=== PATIENT | female | born 1950 | race Caucasian/White ===

== ENCOUNTER 2020-03-25 13:57 | Outpatient (CLI) | payer MEDICARE, OTHER, SELFPAY ==
--- NOTE | 2020-03-25 14:01 | ECG_ITS ---
Measurements Intervals [place] Rate: 95 P: 43 CO: 157 QRS: 45 QRSD: 90 T: 41 QT: 344 QTc: 434 Interpretive Statements SINUS RHYTHM MINIMAL Q WAVES- INFERIOR LEADS BASELINE ARTIFACT- I, II, III, AVR, AVL, AVF, V6 BORDERLINE ECG Electronically Signed On 03-25-2020 16:44:35 SECURITY AND COMPLIANCE ANALYST by Jose G Salazar D.O.
[2020-03-25 14:34] LABS: Anion Gap 7 mmol/L (8-16); Blood Urea Nitrogen 19 mg/dL (7-17); Calcium 9.2 mg/dL (8.4-10.2); Carbon Dioxide 30 mmol/L (22-30); Chloride 100 mmol/L (98-107); Estimated Glomerular Filt Rate 44; Glucose 100 mg/dL (65-105); Potassium 3.6 mmol/L (3.4-5.0); Sodium 137 mmol/L (137-145)
== END 2020-03-25 13:58 | disposition home or self-care (01) ==
LOC: ANHSURGERY 14:01
PROVIDERS: Anesthesiology; PCP Physician Assistant; Visit Provider Podiatrist Foot & Ankle Surgery
DX: Z01.812 Encounter for preprocedural laboratory examination (principal); I10 Essential (primary) hypertension; Z79.899 Other long term (current) drug therapy
CPT/HCPCS: 36415; 80048; 93005

== ENCOUNTER 2020-03-29 00:05 | Outpatient (CLI) | payer MEDICARE, OTHER, SELFPAY ==
[2020-03-29 19:18] LABS: SARS-CoV-2 RNA PCR Negative
== END 2020-03-29 00:06 | disposition home or self-care (01) ==
LOC: ANHCOVIDDT 00:05
PROVIDERS: PCP Physician Assistant; Visit Provider Podiatrist Foot & Ankle Surgery
DX: Z01.812 Encounter for preprocedural laboratory examination (principal); Z20.822 Contact with and (suspected) exposure to COVID-19
CPT/HCPCS: C9803; U0003; U0005

== ENCOUNTER 2020-04-01 00:48 | Day surgery (SDC) | payer MEDICARE, OTHER, SELFPAY ==
[2020-03-24 14:09] VITALS: BMI 29.0
--- NOTE | 2020-03-31 16:19 | WPDANESEPPF ---
Anes - Initial Pre Proc Eval Procedure: Operation Date: 04/01/20 07:30 Proposed Procedures p Fusion First Metatarsalphalangeal Joint Right Foot - Yosi Muñoz JR, MD s Hammer Toe Repair Second Digit Right Foot, Tailor's Bunionectomy Right Foot - Yosi Muñoz JR, MD Date/Time: 03/31/20 16:19 Surgeon: Yosi Muñoz JR, MD Pre Op Diagnosis: Arthritic Bunion Rt foot, Hammer Toe 2nd right, Patient Data Age: 70 Gender: F Height: 1.7 m Weight: 84 kg Allergies Allergy/AdvReac Type Severity Reaction Status Date / Time No Known Allergies Allergy Verified 03/24/20 14:09 Home Medications Medication Instructions Recorded Confirmed Type atorvastatin 40 mg tablet 40 mg PO HS 04/08/19 03/24/20 History calcium 650 mg-vitamin D3 12.5 1 tablet PO DAILY 04/08/19 03/24/20 History mcg-vitamin K 40 mcg chewable tablet cholecalciferol (vitamin D3) 50 2,000 unit PO DAILY 04/08/19 03/24/20 History mcg (2,000 unit) capsule coenzyme Q10 100 mg capsule 100 mg PO DAILY 04/08/19 03/24/20 History fluticasone propionate 50 2 spray NASAL DAILY PRN 04/08/19 03/24/20 History mcg/actuation nasal spray,suspension hydrochlorothiazide 25 mg tablet 25 mg PO DAILY 04/08/19 03/24/20 History lisinopril 30 mg tablet 30 mg PO HS 04/08/19 03/24/20 History multivitamin with minerals 1 tablet PO DAILY 04/08/19 03/24/20 History sertraline 50 mg tablet 50 mg PO HS 04/08/19 03/24/20 History famotidine [Pepcid AC] 20 mg PO DAILY PRN 03/24/20 03/24/20 History levothyroxine [Synthroid] 88 mcg PO QAM 03/24/20 03/24/20 History ECG: Date of Service: 03/25/20 Procedure(s): CA 12 lead EKG Accession Number(s): [id number] cc: ~ Measurements Intervals [place] Rate: 95 P: 43 [place]: 157 QRS: 45 QRSD: 90 T: 41 QT: 344 QTc: 434 Interpretive Statements SINUS RHYTHM MINIMAL Q WAVES- INFERIOR LEADS BASELINE ARTIFACT- I, II, III, AVR, AVL, AVF, V6 BORDERLINE ECG Electronically Signed On 03-25-2020 16:44:35 INFORMATION RECEPTIONIST by Jose G Salazar D.O. Dictated By: Jose G Salazar DO 03/25/20 1644 Patient hx anesthesia problems: none Family hx anesthesia problems: none PMFSH Past Medical History Medical History (Updated 03/31/20 @ 16:21 by Jaspal Plunkett MD) Adrenal adenoma Anxiety Depression HTN (hypertension) Hypercholesterolemia Hypothyroidism Osteoarthritis Osteoporosis Overweight (BMI 25.0-29.9) Family History Family History Mother Patient's mother is Family history of lung cancer Sibling Family history of cardiomyopathy Father Family history of lymphoma Social History Social History Smoking packs per day: 1 Smoking cigarettes per day: 20.0 Years smoked: 17 Smoking pack-years: 17.00 Smoking status: Never smoker Second hand tobacco smoke exposure: No Smoking end date: 08/25/84 Alcohol intake: current Drinks per week: 3 Alcohol use details: 3 GLASSES/DAY Substance use: never Living arrangements: with family Additional living arrangements comments: Spiritual care concerns: No Anes - Eval Final PreProcedure Day of Procedure 03/31/20 16:19 Patient weight: overweight Heart: regular rate and rhythm Lungs: clear to auscultation and normal air movement Airway: Mallampati scale class II Neurological: alert and oriented Last oral intake: >/= 8 hours ASA classification: II Emergent: no Anesthetic plan: proceed Anesthesia type and monitoring: general GIVS and LMA Informed Consent: The patient's anesthetic plan and its attendant risks and benefits were discu
--- NOTE | 2020-03-31 16:42 | WPDANESPNB ---
Anes - Peripheral Nerve Block Date/Time: 03/31/20 16:42 I have discussed with the patient/family/POA the placement of a peripheral nerve block for post-operative pain management, including associated risks, benefits, complications, and side effects. Alternative methods of post-operative analgesia were detailed. Questions were solicited and answers provided to the satisfaction of the patient/family/POA. Time-Out: A pre-procedural Time-Out was completed immediately before starting the procedure and confirmed: Patient Identification, Site, Procedure, Patient Position and the Availability of Requisite Equipment. Clinical Indications: Acute post-operative pain management requested by the operative surgeon. Nerve Block Insertion Note Anes-nerve block: posterior fossa sciatic (20cc) Patient position: supine Skin prep: chlorhexidine Needle: 22 gauge, stimulating, insulated echogenic needle. Needle length: 80 mm Technique: ultrasound (in plane) Injectate: bupivacaine 0.5% with epi 5 mcg/ml (20cc) Observations: tolerated well Complications: none Procedure start time:: 715 Procedure end time::
--- NOTE | ~2020-04-01 | XR_ITS ---
EXAMINATION: XR surgery orthopedic EXAM DATE: 04/01/2020 09:40 INDICATION: Right foot hammertoe repair, 1st MTP bunion. Bunionectomy 2nd toe. TECHNIQUE: Fluoroscopy used during XR surgery orthopedic performed by Dr. Yosi Muñoz JR MD. The DAP for this procedure was 1.2 cGycm2. FINDINGS: Surgical changes at the right 1st metatarsophalangeal joint with a plate bridging the join t, supporting screws in position. There is surgical and pin extending through the length of the 2nd digit bridging the joints to the 2n d metatarsal head. Central portion of this has a screw fixation device overlying the 2nd proximal int erphalangeal joint, arthrodesis. There is also a probable 5th metatarsal neck osteotomy with screw fixation. Correlate with procedure note. IMPRESSION: Fluoroscopy used during right foot orthopedic surgery. Reviewed, dictated and finalized at location B. [facility] [employer]UCK DRIVER
[2020-04-01 06:10] VITALS: BP 195/78; PULSE 74; RESP 20; TEMP 36.1; O2SAT 99
[2020-04-01] MEDS: LACTATED RINGERS 1,000 ML 30 ML IV CONT ×2 (06:42→09:48)
--- NOTE | 2020-04-01 07:14 | WPDHPUPDATE1 ---
History and Physical Update Update Date/Time: 04/01/20 07:14 History and Physical has been reviewed, including an updated exam of the patient. There are NO changes in the patient's condition. Risks, benefits, and alternatives have been discussed and questions answered. Patient agrees to proceed with procedure.
[2020-04-01] MEDS: ceFAZolin 2 GM/D5W 50 ML 2 GM/50 ML BAG IVPB (07:27)
--- NOTE | 2020-04-01 08:44 | SUR.OPER ---
dr. Mobley INFORMED OF 60 MINUTE TOURNIQUET TIME
[2020-04-01 09:48] VITALS: BP 116/62; PULSE 86; RESP 10; TEMP 36.6; O2SAT 97
--- NOTE | 2020-04-01 09:57 | PM.PROC ---
Procedure Note - Detailed Date of procedure: 04/01/20 Pre-op diagnosis: Arthritic Bunion Rt foot, Hammer Toe 2nd right, 1. Arthritic bunion right foot 2. Hammertoe deformity 2nd digit right foot 3. Tailor's bunion right foot Post-op diagnosis: same Procedure performed: 1. Fusion of the first metatarsal phalangeal joint right foot 2. Hammertoe correction right foot 3. Tailor's bunionectomy right foot Implants: 1. Cause.it Cross Check plate with 3 (2.7mm) and 1 (3.5mm) Locking screws 2. [employer] Hammertoe Implant Medium 3. [place] 2.0mm partially threaded cannulated screw Anesthesia: GLMA and regional (Popliteal fossa block) Surgeon: Yosi Muñoz JR, DPM Estimated blood loss (mL): 1 Drains: No Packing: No Pathology: none sent Complications: No immediate complications Condition: stable Disposition: same day Findings: PROCEDURE IN DETAIL: Under mild sedation, the patient was brought into the operating room, placed on the operating table in supine position. A pneumatic ankle tourniquet was placed about the patient's right ankle. Following general LMA, and popliteal fossa block the foot and ankle. The foot was then scrubbed, prepped, and draped in the usual aseptic manner. An Esmarch bandage was then used to exsanguinate the patient's foot and the pneumatic ankle tourniquet was then inflated. Surgery began in the following manner: Attention was directed to the dorsal aspect of the 1st metatarsophalangeal joint where there was a large osteophyte noted along the dorsomedial aspect of the joint along with lateral deviation of the hallux and a prominent 1st metatarsal head medially. The incision was made starting along the central shaft of the 1st metatarsal and extending just proximal to the interphalangeal joint of the hallux. The incision was continued deep down through the subcutaneous tissues using sharp and blunt dissection. All bleeders were cauterized as necessary. At this point, the dissection was continued down to the level of the periosteum and capsular structures overlying the 1st metatarsophalangeal joint. A full length periosteum and capsular incision was made just medial to the extensor hallucis longus tendon. The periosteum and capsular structures were freed from the base of the proximal phalanx as well as the distal 1st metatarsal. At this point, the 1st metatarsophalangeal joint was identified. There was almost complete loss of articular cartilage to the head of the 1st metatarsal as well as the base of the proximal phalanx. There was significant broadening and hypertrophy of the 1st metatarsophalangeal joint. Utilizing a sagittal bone saw, the hypertrophied 1st metatarsal was resected dorsally, medially, and laterally. A power bur was used to make sure that there were no rough edges and also to further debride the hypertrophic 1st metatarsal. Next, a rongeur was used to resect all hypertrophic base of the proximal phalanx. At this point, the reamer system for the Cause.it CrossCHECK system was used to denude the degenerative cartilage from the head of the 1st metatarsal as well as the base of the proximal phalanx. The cartilage and subchondral bone were fully debrided utilizing the reamer system until healthy bleeding bone was noted. Next, a 2-0 drill bit was used to further fenestrate the head of the 1st metatarsal as well as the base of the proximal phalanx in order to allow fusion across the 1st metatarsophalangeal joint. Next, a 0.045 inch K-wire was driven from the medial aspect of the base of the proximal phalanx into the head of the 1st metatarsal in order to serve as temporary fixation. Next, a CrossCHECK plate was placed atop the 1st metatarsophalangeal joint held in position with [place] wires. Utilizing standard principles and techniques, the 2 distal drill holes were drilled and two Cause.it 2.7 mm fully-threaded locking screws were driven from dorsal to plantar holding the distal
[2020-04-01 10:00] VITALS: BP 117/61; PULSE 79; RESP 19; O2SAT 98
[2020-04-01 10:15] VITALS: BP 108/56; PULSE 77; RESP 12; O2SAT 95
[2020-04-01 10:25] VITALS: BP 108/56; PULSE 74; RESP 12; O2SAT 95
[2020-04-01 10:50] VITALS: BP 143/66; PULSE 79; RESP 16
== END 2020-04-01 11:35 | disposition home or self-care (01) ==
PROVIDERS: PCP Physician Assistant; Visit Provider Podiatrist Foot & Ankle Surgery
PROC: (CPT 28750; principal; 2020-04-01 07:30)
PROC: (CPT 28285; 2020-04-01 07:30)
DX: M21.611 Bunion of right foot (principal); M20.41 Other hammer toe(s) (acquired), right foot; M21.621 Bunionette of right foot; M19.071 Primary osteoarthritis, right ankle and foot; G89.18 Other acute postprocedural pain; I10 Essential (primary) hypertension; E78.00 Pure hypercholesterolemia, unspecified; F41.8 Other specified anxiety disorders; E03.9 Hypothyroidism, unspecified; M81.0 Age-related osteoporosis without current pathological fracture; F32.3 Major depressive disorder, single episode, severe with psychotic features; F17.210 Nicotine dependence, cigarettes, uncomplicated
CPT/HCPCS: 64445; 28285; 28110; 28750; C1713; C1776; J0690; J1100; J2250; J2405; J2704; J3010; J7120

== ENCOUNTER → 2020-05-31 04:03 | Outpatient (CLI) | payer MEDICARE, OTHER, SELFPAY ==
[2020-05-31 19:03] LABS: SARS-CoV-2 RNA PCR Negative
== END ==
PROVIDERS: PCP Physician Assistant; Visit Provider Internal Medicine Gastroenterology
DX: Z01.812 Encounter for preprocedural laboratory examination (principal); Z20.822 Contact with and (suspected) exposure to COVID-19
CPT/HCPCS: C9803; U0003; U0005

== ENCOUNTER 2020-06-03 01:49 | Day surgery (SDC) | payer MEDICARE, OTHER, SELFPAY ==
[2020-05-24 09:48] VITALS: BMI 27.2
[2020-06-03 07:46] VITALS: BP 120/71; PULSE 102; RESP 16; TEMP 35.9; O2SAT 97
[2020-06-03] MEDS: LACTATED RINGERS 1,000 ML 150 ML IV CONT (07:56)
--- NOTE | 2020-06-03 08:28 | PM.HPGS ---
History of Present Illness History of Present Illness Consent: Risks, benefits, and alternatives have been discussed and questions answered. Patient agrees to proceed with procedure. Chief complaint: HX of Colon Poplyps Narrative: Shira Torres is a 70 year old female here for colon cancer screening. She had a polyp removed about 5 years ago Review of Systems Review of Systems: All systems reviewed & are unremarkable except as noted in HPI and below PMFSH Past Medical History Medical History Adrenal adenoma Anxiety Depression HTN (hypertension) Hypercholesterolemia Hypothyroidism Osteoarthritis Osteoporosis Overweight (BMI 25.0-29.9) Family History Family History Mother Patient's mother is Family history of lung cancer Sibling Family history of cardiomyopathy Father Family history of lymphoma Social History Social History Smoking packs per day: 1 Smoking cigarettes per day: 20.0 Years smoked: 17 Smoking pack-years: 17.00 Smoking status: Former smoker Tobacco type: cigarettes Second hand tobacco smoke exposure: No Smoking end date: 08/25/84 Alcohol intake: current Drinks per week: 3 Substance use: never Substance use type: does not use Living arrangements: with family Additional living arrangements comments: Spiritual care concerns: No Meds Home Medications and Allergies Home Medications Medication Instructions Recorded Confirmed Type atorvastatin 40 mg tablet 40 mg PO HS 04/08/19 05/24/20 History calcium 650 mg-vitamin D3 12.5 1 tablet PO DAILY 04/08/19 05/24/20 History mcg-vitamin K 40 mcg chewable tablet cholecalciferol (vitamin D3) 50 2,000 unit PO DAILY 04/08/19 05/24/20 History mcg (2,000 unit) capsule fluticasone propionate 50 2 spray NASAL DAILY PRN 04/08/19 05/24/20 History mcg/actuation nasal spray,suspension hydrochlorothiazide 25 mg tablet 25 mg PO DAILY 04/08/19 05/24/20 History lisinopril 30 mg tablet 30 mg PO HS 04/08/19 05/24/20 History sertraline 50 mg tablet 50 mg PO HS 04/08/19 05/24/20 History famotidine [Pepcid AC] 20 mg PO DAILY PRN 03/24/20 05/24/20 History levothyroxine [Synthroid] 88 mcg PO QAM 03/24/20 05/24/20 History ibuprofen 200 mg PO Q6H PRN 05/24/20 05/24/20 History Allergies Allergy/AdvReac Type Severity Reaction Status Date / Time No Known Allergies Allergy Verified 05/24/20 09:49 Vital Signs Vital Signs - 24 hr 06/03/20 07:46 Temperature 35.9 C L Pulse Rate 102 H Respiratory Rate 16 Blood Pressure 120/71 Pulse Oximetry 97 Exam Resp: Auscultation: clear to auscultation bilaterally Cardio: Rate: regular rate Rhythm: regular rhythm GI: GI Palp: Yes Soft to palpation and No Tenderness to palpation present (GI) Assessment and Plan Assessment and plan (1) Colon cancer screening: Code(s): Z12.11 - Encounter for screening for malignant neoplasm of colon Status: Acute Assessment and Plan: Colonoscopy with possible biopsy or polypectomy or cautery or injection of substances.
[2020-06-03 09:15] VITALS: BP 104/56; PULSE 65; RESP 24; O2SAT 97
[2020-06-03 09:25] VITALS: BP 104/59; PULSE 60; RESP 14; O2SAT 97
[2020-06-03 09:35] VITALS: BP 119/69; PULSE 62; RESP 15; O2SAT 98
== END 2020-06-03 09:47 | disposition home or self-care (01) ==
PROVIDERS: PCP Physician Assistant; Visit Provider Internal Medicine Gastroenterology
PROC: 0DJD8ZZ Inspection of Lower Intestinal Tract, Via Natural or Artificial Opening Endoscopic (ICD-10-PCS; CPT 45378; principal; 2020-06-03 09:00)
DX: Z12.11 Encounter for screening for malignant neoplasm of colon (principal); K57.30 Diverticulosis of large intestine without perforation or abscess without bleeding; K64.8 Other hemorrhoids; Z86.010 Personal history of colon polyps; F41.8 Other specified anxiety disorders; E78.00 Pure hypercholesterolemia, unspecified; E03.9 Hypothyroidism, unspecified; M19.90 Unspecified osteoarthritis, unspecified site; M81.0 Age-related osteoporosis without current pathological fracture; Z87.891 Personal history of nicotine dependence; I10 Essential (primary) hypertension
CPT/HCPCS: G0105; J2704; J7120

== ENCOUNTER → 2021-02-24 00:23 | Outpatient (CLI) | payer MEDICARE, OTHER, SELFPAY ==
[2021-02-24 20:43] LABS: SARS-CoV-2 RNA PCR Negative
== END ==
PROVIDERS: PCP Physician Assistant; Visit Provider Physician Assistant
DX: R09.89 Other specified symptoms and signs involving the circulatory and respiratory systems (principal); Z20.822 Contact with and (suspected) exposure to COVID-19
CPT/HCPCS: C9803; U0003; U0005

== ENCOUNTER 2021-04-25 10:24 | Outpatient (CLI) | payer MEDICARE, OTHER, SELFPAY ==
[2021-04-25 11:27] LABS: Mean Corpuscular HGB Conc 33.3 g/dl (32-36); Mean Corpuscular Hemoglobin 30.6 pg (26-34); Mean Corpuscular Volume 91.8 fl (80-100); Mean Platelet Volume 9.7 fl (7.4-10.4); Platelet Count Result 251 k/mm3 (150-375); Red Blood Count 4.25 M/mm3 (4.2-5.4); Red Cell Distribution Width 14.1 % (11.5-14.5); White Blood Count 4.9 K/mm3 (4.5-10.0)
[2021-04-25 11:32] LABS: Cholesterol 217 mg/dL (0-200); HDL Direct 64 mg/dL; Triglycerides 137 mg/dL (<150)
[2021-04-25 11:43] LABS: LDL Cholesterol Direct 113 mg/dL
[2021-04-25 12:38] LABS: Folic Acid 11.3 ng/mL (2.76->20)
== END 2021-04-25 10:25 | disposition home or self-care (01) ==
PROVIDERS: PCP Physician Assistant; Visit Provider Physician Assistant
DX: R53.83 Other fatigue (principal); M81.0 Age-related osteoporosis without current pathological fracture; E03.9 Hypothyroidism, unspecified; E78.00 Pure hypercholesterolemia, unspecified
CPT/HCPCS: 36415; 80061; 82607; 82746; 85027

== ENCOUNTER 2021-05-30 11:41 | Outpatient (CLI) | payer MEDICARE, OTHER, SELFPAY ==
[2021-05-30 12:31] LABS: Anion Gap 7 mmol/L (8-16); Blood Urea Nitrogen 14 mg/dL (7-17); Calcium 9.3 mg/dL (8.4-10.2); Carbon Dioxide 30 mmol/L (22-30); Chloride 100 mmol/L (98-107); Estimated Glomerular Filt Rate > 60; Glucose 101 mg/dL (65-110); Potassium 4.1 mmol/L (3.4-5.0); Sodium 137 mmol/L (137-145)
[2021-05-30 12:52] LABS: Free T4 Free Thyroxine 1.37 ng/mL (0.78-2.19)
== END 2021-05-30 11:42 | disposition home or self-care (01) ==
PROVIDERS: PCP Physician Assistant
DX: E03.9 Hypothyroidism, unspecified (principal); M81.0 Age-related osteoporosis without current pathological fracture
CPT/HCPCS: 36415; 80048; 84439; 84443

== ENCOUNTER 2022-03-29 10:38 | Outpatient (CLI) | payer MEDICARE, OTHER, SELFPAY ==
--- NOTE | 2022-03-29 10:41 | ECG_ITS ---
Measurements Intervals [place] Rate: 70 P: 48 [place]: 156 QRS: 41 QRSD: 94 T: 36 QT: 382 QTc: 415 Interpretive Statements SINUS RHYTHM NORMAL ECG COMPARED TO ECG 03/25/2020 14:39:24 NO SIGNIFICANT CHANGES Electronically Signed On 03-29-2022 14:00:20 BOWLING BALL FINISHER by Jose E Archuleta M.D.
[2022-03-29 12:15] LABS: Anion Gap 5 mmol/L (8-16); Blood Urea Nitrogen 10 mg/dL (7-17); Calcium 8.7 mg/dL (8.4-10.2); Carbon Dioxide 31 mmol/L (22-30); Chloride 100 mmol/L (98-107); Estimated Glomerular Filt Rate > 60; Glucose 83 mg/dL (65-110); Potassium 3.6 mmol/L (3.4-5.0); Sodium 136 mmol/L (137-145)
== END 2022-03-29 10:39 | disposition home or self-care (01) ==
PROVIDERS: Anesthesiology; PCP Physician Assistant; Visit Provider Surgery
DX: Z01.812 Encounter for preprocedural laboratory examination (principal); Z01.810 Encounter for preprocedural cardiovascular examination; Z79.899 Other long term (current) drug therapy; I10 Essential (primary) hypertension
CPT/HCPCS: 36415; 80048; 93005

== ENCOUNTER 2022-04-02 00:21 | Day surgery (SDC) | payer MEDICARE, OTHER, SELFPAY ==
[2022-03-28 09:41] VITALS: BMI 29.7
--- NOTE | 2022-03-28 09:51 | PC.NURSE ---
PRE-OP INSTRUCTIONS, PLEASE READ CAREFULLY Report to the Outpatient Waiting Room, entrance under the green pavilion located off [facility], at time _1130_ on date _04/02/22_. Planned Procedure Time: _1:30 PM__. Time changes happen often and if your time is changed the preop area will call you the afternoon before. - You and your visitor will be asked to self-screen and do not enter if you have any COVID symptoms. - Only one visitor is requested with a max of two and NO children visitors are allowed at this time. - The patient visitor may be requested to leave or wait in car when not with patient due to distancing restrictions. - A mask is optional within the hospital at this time. Patients may have clear liquids (water, carbonated beverages, clear teas, apple juice) until 3 hours prior to surgery (1030 AM) with a maximum of 20 ounces. - No food from midnight until time of surgery Take the following medications with a SIP of water the morning of surgery: _LEVOTHYROXINE_ DO NOT STOP ANY OF YOUR OTHER PRESCRIPTION MEDICATIONS PRIOR TO SURGERY ?EXCEPT THE FOLLOWING Medications to discontinue per DR. HIDALGO - _IBUPROFEN_ Date to take last dose Please no make-up, nail american, hairspray, perfume, deodorant, or body powder the day of surgery. No jewelry (including any body piercings) or valuables the day of surgery, leave them at home. Please take a shower or bath the night before, or the morning of, surgery with an antibacterial soap. Wear comfortable, loose fitting clothing. - Jewelry must be removed prior to entering the operating room. Rings and piercings that are not removed may be cut off. - The hospital will not accept responsibility for valuables. - Please leave all valuables, including medications, at home the day of surgery. If you are going home after surgery, a licensed driver examiner must drive you home. - NO public transportation without another adult if you receive anesthesia. - We recommend that an adult stay with you for 24 hours following discharge. - We also recommend that you do not drive, make important decision, drink alcoholic beverages, or take any drugs that were not prescribed by your health care provider for at least 24 hours after your discharge time. Follow any additional instructions given to you from your surgeon. If you or anyone in your household have experienced Covid symptoms in the past week, please notify your surgeon or the nurse liaison at the phone number below for possible testing. Telephone instructions given to _PATIENT_and asked if any additional questions and then verbalized understanding. Patient advised to call surgeon office or pre surgery nurse liaison [phone] if any additional questions.
[2022-04-02] VITALS (9 sets, daily range): BP systolic 149–189; BP diastolic 70–90; PULSE 66–86; RESP 10–16; TEMP 36.1–36.7; O2SAT 95–100
[2022-04-02] MEDS: ACETAMINOPHEN 500 MG TABLET 1000 MG PO (08:58)
[2022-04-02] MEDS: KETOROLAC 15 MG/ML VIAL (*BKC) IV PUSH (08:59)
--- NOTE | 2022-04-02 08:59 | WPDANESEPPF ---
Anes - Initial Pre Proc Eval Procedure: Operation Date: 04/02/22 10:30 Proposed Procedures p Anorectal Examination Under Anesthesia, Excisional Hemorrhoidectomy - Romain Babin MD Date/Time: 04/02/22 08:59 Surgeon: Romain Babin MD Pre Op Diagnosis: prolapsing internal & bleeding hemorrhoids Patient Data Age: 72 Gender: F Height: 1.7 m Weight: 86.3 kg Allergies Allergy/AdvReac Type Severity Reaction Status Date / Time No Known Allergies Allergy Verified 03/28/22 09:36 Home Medications Medication Instructions Recorded Confirmed Type fluticasone propionate 50 2 spray intranasal DAILY PRN 01/25/21 03/28/22 Rx mcg/actuation nasal Congestion #16 grams spray,suspension (Flonase Allergy Relief) ibuprofen 200 mg tablet 200 mg PO Q6H PRN Pain #120 tabs 01/25/21 03/28/22 Rx atorvastatin 40 mg tablet 40 mg PO HS #90 tabs 01/22/22 03/28/22 Rx cholecalciferol (vitamin D3) 50 2,000 unit PO DAILY #90 caps 01/22/22 03/28/22 Rx mcg (2,000 unit) capsule hydrochlorothiazide 25 mg tablet 25 mg PO DAILY #90 tabs 01/22/22 03/28/22 Rx levothyroxine 88 mcg tablet 88 mcg PO QAM #90 tabs 01/22/22 03/28/22 Rx (Synthroid) lisinopril 30 mg tablet 30 mg PO HS #90 tabs 01/22/22 03/28/22 Rx sertraline 50 mg tablet 50 mg PO HS #90 tabs 01/22/22 03/28/22 Rx coenzyme Q10 10 mg capsule (Co 10 mg PO DAILY 03/27/22 03/28/22 History Q-10) cyanocobalamin (vitamin B-12) 1,000 mcg PO DAILY 03/27/22 03/28/22 History 1,000 mcg capsule calcium carb,cit ER 600 mg-vit D3 2 tablet PO DAILY 03/28/22 03/28/22 History 12.5 mcg (500 unit) tablet,ext.rel (Citracal-D3 Slow Release) docusate sodium 100 mg capsule 100 mg PO BID Constipation #60 caps 03/28/22 03/28/22 Rx (Colace) lidocaine 5 % topical ointment 1 applic topical BID PRN pain #50 03/28/22 03/28/22 Rx grams oxycodone 5 mg tablet 5 mg PO Q4H PRN pain (scale score 03/28/22 03/28/22 Rx 7-10) #30 tabs Patient hx anesthesia problems: none Family hx anesthesia problems: none Results Review: All pre-operative results and documents have been reviewed as part of the pre-operative evaluation. [facility] Past Medical History Medical History Adrenal adenoma Anxiety Depression HTN (hypertension) Hx of cyst of breast Hypercholesterolemia Hypothyroidism Osteoarthritis Osteoporosis Overweight (BMI 25.0-29.9) Surgical History Surgical History S/P bunionectomy S/P tubal ligation Family History Family History Mother Patient's mother is Family history of lung cancer Sibling Family history of cardiomyopathy Father Family history of lymphoma Unknown Diabetes mellitus Heart disease Hypertension Cancer Social History Social History Smoking packs per day: 1 Smoking cigarettes per day: 20.0 Years smoked: 17 Smoking pack-years: 17.00 Smoking status: Former smoker Tobacco type: cigarettes Second hand tobacco smoke exposure: No Smoking end date: 08/25/84 Alcohol intake: current Drinks per week: 21 Alcohol use details: 3 GLASSES WINE/DAY Substance use: never Substance use type: does not use Lack of Transportation: No Lack of Food: Never True Current Housing: I Have Housing Concerned About Future Housing: No Difficulty Paying Gas/Electric Bills: No Difficulty Paying for Meds: No Currently Unemployed: No Education: Trade/Vocational Certificate Difficulty w/ Childcare or Family Care: No Living arrangements: with family Additional living arrangements comments: Spiritual care concerns: No Anes - Eval Final PreProcedure Day of Procedure 04/02/22 08:59 Patient weight: overweight Heart: regular rate and rhythm Lungs: clear to auscultation Airway: Mall
[2022-04-02] MEDS: LACTATED RINGERS 1,000 ML 30 ML IV CONT ×2 (09:00→12:05)
--- NOTE | 2022-04-02 10:05 | WPDHPUPDATE1 ---
History and Physical Update Update Date/Time: 04/02/22 10:05 History and Physical has been reviewed, including an updated exam of the patient. There are NO changes in the patient's condition. Risks, benefits, and alternatives have been discussed and questions answered. Patient agrees to proceed with procedure.
[2022-04-02] MEDS: ceFAZolin 2 GM/D5W 50 ML 2 GM/50 ML BAG IVPB (10:21)
[2022-04-02] MEDS: oxyCODONE HCL (*CRX) 5 MG TAB IR PO (13:37)
--- NOTE | 2022-04-02 19:27 | W.PM.PROC2 ---
Procedure Note - Detailed Date of Procedure 04/02/22 Pre-op Diagnosis prolapsing internal & bleeding hemorrhoids Post-op Diagnosis Same Procedure Performed Excisional hemorrhoidectomy x4. Surgeon Romain Babin MD Laboratory Mechanic Helper Cheri Can LOGISTIC MANAGER Anesthesia General Indications Patient presented with longstanding prolapsing internal hemorrhoids with associated pain and bleeding. She wished to have surgical management of the hemorrhoids. Findings Circumferential grade 3 prolapsing internal hemorrhoids. Hemorrhoids were located at the 12:00 o'clock, 3:00 o'clock, 6 o'clock, and 9 o'clock position with the patient prone. No anal canal lesions or masses were noted. Description of Procedure After informed consent was obtained the patient was brought to the operating room where she was placed under general endotracheal anesthesia on the gurney and then turned onto the prone darshan-knife position on the operating room table. Great care was taken to make sure all the pressure points well padded. The buttocks were then taped apart to expose the perianal region. She was then prepped and draped in usual sterile fashion. A time-out was then performed correctly identifying the patient as well as procedure to be performed. She was given Ancef for perioperative IV antibiotics. I started by performing dilation of the anal sphincters the lubricated anal speculum. Circumferential evaluation of the anal canal revealed no masses or suspicious lesions. She did have circumferential large prolapsing internal hemorrhoids at the 12:00 o'clock, 3 o'clock, 6 o'clock, and 9 o'clock positions. There was no thrombosis. I then proceeded to excise out the hemorrhoid tissue at the 4 above mentioned positions. All hemorrhoids were excised in the similar fashion. I 1st started with the hemorrhoid at the 6 o'clock position. A 2 0 chromic suture was placed at the apex of the hemorrhoid above the dentate line. A #15 blade scalpel was then used to incise the mucosa and anal derm on either side of the hemorrhoid tissue and the incision was carried out onto the perianal skin in a pascual configuration. I then utilized electrocautery to dissect underneath the perianal skin and developed the plane between the hemorrhoid tissue and the internal sphincter muscles. Metzenbaum scissors were then used to spread underneath the hemorrhoid tissue but superficial to the internal oblique muscle fibers. Electrocautery was then used to completely excise out the hemorrhoid tissue. Once the hemorrhoid tissue was removed I then closed the incision utilizing the previously placed 2-0 chromic suture which was run in a locking fashion out to the perianal skin. At this point I then transition to using a 3-0 Vicryl suture placed in a running and locking fashion to approximate the skin edges of the perianal skin. A similar excision of the hemorrhoids at the 9:00 o'clock, 12:00 o'clock, and 3:00 o'clock positions were performed. All 4 hemorrhoids were sent to pathology separately for examination. I then irrigated out the anal canal with sterile saline solution. Hemostasis on the incisions was good. I then injected a combination of 0.5% Marcaine without epinephrine mixed with Exparel long-acting liposomal bupivacaine in the perianal region for a perianal block. Bilateral pudendal nerve blocks were also performed with the same local anesthetic mixture. The perianal region was then cleaned and 4x4 gauze, an ABD pad, and disposable underwear was used for final dressing. The patient tolerated the procedure well no complications. All sponges, needles, and instrument counts were correct at the end procedure. EBL was _50__cc. The patient was awakened and taken to recovery in stable and satisfactory condition Implants None Estimated Blood Loss 50 Drains No Packing No Pathology Yes ( hemorrhoids x4) Complications No immediate complications Condition Stable Disposition PACU [facility] Billing Surge
== END 2022-04-02 14:07 | disposition home or self-care (01) ==
PROVIDERS: PCP Physician Assistant; Visit Provider Surgery
PROC: (CPT 46250; principal; 2022-04-02 10:30)
DX: K64.2 Third degree hemorrhoids (principal); I10 Essential (primary) hypertension; E78.00 Pure hypercholesterolemia, unspecified; E03.9 Hypothyroidism, unspecified; M81.0 Age-related osteoporosis without current pathological fracture; F41.9 Anxiety disorder, unspecified; F32.A Depression, unspecified; Z87.891 Personal history of nicotine dependence
CPT/HCPCS: 46250; 88304; A9270; C9290; J0330; J0690; J1100; J1885; J2370; J2405; J2704; J3010; J7120

== ENCOUNTER 2022-05-23 12:35 | Outpatient (CLI) | payer MEDICARE, OTHER, SELFPAY ==
[2022-05-23 12:49] LABS: Basophils Percent Auto 0.4 % (0.2-1.2); Eosinophils Absolute Auto 0.1 K/mm3 (0-0.3); Eosinophils Percent Auto 1.9 % (0-4.4); Hematocrit 38.6 % (37.0-47.0); Hemoglobin 12.5 g/dL (12.0-15.0); Immature Granulocyte Absolute 0.01 K/mm3 (0.00-0.031); Immature Granulocyte Percent A 0.2 % (0-0.5); Lymphocytes Absolute Auto 2.18 K/mm3 (0.9-3.2); Lymphocytes Percent Auto 45.5 % (18.3-44.2); Mean Corpuscular HGB Conc 32.4 g/dl (32-36); Mean Corpuscular Hemoglobin 30.5 pg (26-34); Mean Corpuscular Volume 94.1 fl (80-100); Mean Platelet Volume 9.5 fl (7.4-10.4); Monocytes Absolute Auto 0.3 K/mm3 (0.1-0.6); Monocytes Percent Auto 6.5 % (2.6-8.5); Neutrophils Absolute Auto 2.2 K/mm3 (1.3-6.7); Neutrophils Percent Auto 45.5 % (45.5-73.1); Platelet Count Result 247 k/mm3 (150-375); Red Cell Distribution Width 14.5 % (11.5-14.5); White Blood Count 4.8 K/mm3 (4.5-10.0)
[2022-05-23 13:02] LABS: Alanine Aminotransferase 32 U/L (6-35); Albumin Level 4.4 g/dL (3.5-5.1); Alkaline Phosphatase 106 U/L (38-126); Anion Gap 9 mmol/L (8-16); Aspartate Amino Transferase 30 U/L (14-36); Bilirubin,Total 1.2 mg/dL (0.2-1.3); Blood Urea Nitrogen 12 mg/dL (7-17); Calcium 8.7 mg/dL (8.4-10.2); Carbon Dioxide 25 mmol/L (22-30); Chloride 104 mmol/L (98-107); Cholesterol 228 mg/dL (0-200); Estimated Glomerular Filt Rate > 60; Glucose 103 mg/dL (65-110); HDL Direct 66 mg/dL; Potassium 3.7 mmol/L (3.4-5.0); Sodium 138 mmol/L (137-145); Triglycerides 212 mg/dL (<150)
[2022-05-23 13:13] LABS: LDL Cholesterol Direct 108 mg/dL
[2022-05-23 13:36] LABS: Vitamin D 25 Hydroxy 59.9 ng/mL
[2022-05-23 14:06] LABS: Folic Acid 7.1 ng/mL (2.76->20)
== END 2022-05-23 12:36 | disposition home or self-care (01) ==
PROVIDERS: PCP Physician Assistant; Visit Provider Physician Assistant
DX: R53.83 Other fatigue (principal); E03.9 Hypothyroidism, unspecified; E78.00 Pure hypercholesterolemia, unspecified; E55.9 Vitamin D deficiency, unspecified
CPT/HCPCS: 36415; 80053; 80061; 82306; 82607; 82746; 84439; 84443; 85025

== ENCOUNTER 2022-06-06 07:27 | Outpatient (CLI) | payer MEDICARE, OTHER, SELFPAY ==
[2022-06-06 08:06] LABS: Anion Gap 6 mmol/L (8-16); Blood Urea Nitrogen 13 mg/dL (7-17); Calcium 9.2 mg/dL (8.4-10.2); Carbon Dioxide 27 mmol/L (22-30); Chloride 106 mmol/L (98-107); Estimated Glomerular Filt Rate > 60; Glucose 103 mg/dL (65-110); Potassium 3.5 mmol/L (3.4-5.0); Sodium 139 mmol/L (137-145)
[2022-06-06 09:16] LABS: Hemoglobin A1C 5.2 % (<5.7)
[2022-06-10 06:02] LABS: Adrenocorticotropic Hormone <5 pg/mL (6-50)
[2022-06-11 11:08] LABS: Renin 0.26 ng/mL/h (0.25-5.82)
== END 2022-06-06 07:28 | disposition home or self-care (01) ==
PROVIDERS: PCP Physician Assistant
DX: E27.8 Other specified disorders of adrenal gland (principal); R79.89 Other specified abnormal findings of blood chemistry; R73.9 Hyperglycemia, unspecified
CPT/HCPCS: 36415; 80048; 82024; 82088; 83036; 84244

== ENCOUNTER 2022-06-25 10:18 | Outpatient (CLI) | payer MEDICARE, OTHER, SELFPAY ==
--- NOTE | ~2022-06-25 | XR_ITS ---
Left Knee Technique: AP, lateral, and sunrise views were obtained. Clinical History: Pain Findings: No fracture or dislocation is seen. Osseous alignment is anatomic. Mild tricompartmental de generative spurring noted. Soft tissues are unremarkable. No joint effusion is seen. Impression: Mild tricompartmental degenerative spurring. Reviewed, dictated and finalized at location . Impression: Mild tricompartmental degenerative spurring.
== END 2022-06-25 10:19 | disposition home or self-care (01) ==
PROVIDERS: PCP Physician Assistant; Referring Provider Orthopaedic Surgery; Visit Provider Physician Assistant
DX: M25.562 Pain in left knee (principal)
CPT/HCPCS: 73562

== ENCOUNTER 2022-07-03 13:35 | Outpatient (CLI) | payer MEDICARE, OTHER, SELFPAY ==
--- NOTE | ~2022-07-03 | MR_ITS ---
EXAMINATION: MR knee LT wo con DATE: 07/03/2022 14:18 INDICATION: Left knee pain and instability TECHNIQUE: Magnetic resonance imaging (MRI) of the left knee was performed without intravenous contra st. Sequences included coronal PD-weighted FSE, coronal PD-weighted FS FSE, sagittal T2-weighted FSE , sagittal PD-weighted FS FSE and axial PD weighted fat saturated FSE. COMPARISON: None. FINDINGS: Medial compartment: There is a tear of indeterminate morphology with diffuse increased signal of the inner third of the m edial meniscus. Additional tear of indeterminate morphology, likely complex with irregular contour an d increased signal along the cephalad articular surface of the inner two thirds of the lateral side o f the posterior horn of the medial meniscus. Extensive deep chondral ulceration in places likely full thickness along the anterior to central weightbearing medial femoral condyle with cortical irregular ity along the articular surface including small central subchondral osteophytes along the lateral mar gin of the anterior weightbearing medial femoral condyle. Small region of chondral ulceration with un derlying subarticular edema-like signal change at the medial margin of the medial tibial plateau. Sma ll to moderate size marginal osteophytes are present. Lateral compartment: Additional tear of indeterminate morphology with amorphous increased signal involving the inner third of the body as well as at the medial side of the posterior horn of the lateral meniscus, the latter with appears be an associated longitudinal horizontal tear plane which extends to contact the inferio r articular surface at the junction of the inner and middle thirds of the meniscus. There is a flat c entral subchondral osteophyte underlying the region of deep chondral ulceration/fissuring at the cent ral aspect of the anterior weightbearing lateral femoral condyle. Additional deep chondral fissuring with underlying cortical irregularity and small foci of cystlike and edema-like marrow signal change along the medial margin of the central to posterior weightbearing lateral femoral condyle. Deep chond ral ulceration with additional mild cystlike and edema-like subarticular marrow signal change at the medial aspect of the lateral tibial plateau extending onto the shoulder the intercondylar eminence. S mall marginal osteophytes are present. Patellofemoral compartment: Deep chondral ulceration with underlying cortical irregularity and underlying cystlike and edema-like marrow signal changes involving the lateral tibial plateau. Partial-thickness cartilage loss with de ep chondral fissuring and additional cortical irregularity and subarticular edema-like signal changes at the lateral margin of the lateral trochlea with cortical irregularity and small central subchondr al osteophytes but without and subarticular marrow changes at the trochlear groove and medial trochle a. Small marginal osteophytes are present. Ligaments and tendons: Anterior and posterior cruciate ligaments are normal. The medial collateral ligament and fibular lani ateral ligament complex are normal. Mild distal quadriceps tendinopathy. Patellar tendon is normal. T he visualized medial and lateral hamstring tendons as well as the iliotibial band are normal. Fluid: Small left knee joint effusion primarily at the suprapatellar pouch. There is a small loose body at t he neck of a 2.2 x 1.5 x 1.1 cm ganglion cyst extending cephalad from the recess posterior to the cep halad aspect of the posterior weightbearing lateral femoral condyle. No intra-articular loose osteoch ondral bodies identified. Osseous/other: Thin linear increased signal extending along the serpiginous periphery of a 3.5 x 2.0 x 1.8 cm lobula r lesion positioned centrally within the metaphyseal region of the proximal tibia. Centrally there ar e small region of low signal which appear to correspond to remain markedl
== END 2022-07-03 13:36 | disposition home or self-care (01) ==
PROVIDERS: PCP Physician Assistant; Visit Provider Physician Assistant
DX: S83.242A Other tear of medial meniscus, current injury, left knee, initial encounter (principal); S83.282A Other tear of lateral meniscus, current injury, left knee, initial encounter; M17.12 Unilateral primary osteoarthritis, left knee; M89.9 Disorder of bone, unspecified; T14.90XA Injury, unspecified, initial encounter
CPT/HCPCS: 73721

== ENCOUNTER 2023-03-20 13:51 | Outpatient (CLI) | payer MEDICARE, OTHER, SELFPAY ==
[2023-03-28 16:04] LABS: Cortisol, Saliva 0.12 mcg/dL
[2023-03-28 17:29] LABS: Cortisol, Saliva 0.09 mcg/dL
== END 2023-03-20 13:52 | disposition home or self-care (01) ==
PROVIDERS: PCP Physician Assistant
DX: E27.8 Other specified disorders of adrenal gland (principal)
CPT/HCPCS: 82530

== ENCOUNTER 2023-04-25 12:21 | Outpatient (CLI) | payer MEDICARE, OTHER, SELFPAY ==
--- NOTE | ~2023-04-25 | XR_ITS ---
Left Knee Technique: AP, lateral, and sunrise views were obtained. Clinical History: Pain Findings: No fracture or dislocation is seen. Osseous alignment is anatomic. There is moderate degene rative change at the inner aspect of the lateral compartment. There is mild degenerative change of th e medial patellofemoral compartment.. Soft tissues are unremarkable. No joint effusion is seen. Impression: Tricompartment osteoarthritis, as detailed above. Reviewed, dictated and finalized at location M. NCIAL ASSISTANCE ADVISOR Impression: Tricompartment osteoarthritis, as detailed above.
--- NOTE | ~2023-04-25 | XR_ITS ---
Right Knee Technique: AP, lateral, and sunrise views were obtained. Clinical History: Pain Findings: No fracture or dislocation is seen. Osseous alignment is anatomic. There is moderate tricom partmental osteoarthritis.. Soft tissues are unremarkable. No joint effusion is seen. Impression: Moderate osteoarthritis. Reviewed, dictated and finalized at location . CENTER COORDINATOR Impression: Moderate osteoarthritis.
== END 2023-04-25 12:22 | disposition home or self-care (01) ==
LOC: ANHIMG 12:26
PROVIDERS: PCP Physician Assistant; Visit Provider Orthopaedic Surgery
DX: M25.561 Pain in right knee (principal); M17.12 Unilateral primary osteoarthritis, left knee; M17.0 Bilateral primary osteoarthritis of knee
CPT/HCPCS: 73564

== ENCOUNTER 2023-05-31 11:02 | Outpatient (CLI) | payer MEDICARE, OTHER, SELFPAY ==
[2023-05-31 11:35] LABS: Basophils Percent Auto 0.7 % (0.2-1.2); Eosinophils Absolute Auto 0.1 K/mm3 (0-0.3); Eosinophils Percent Auto 1.7 % (0-4.4); Hematocrit 38.2 % (37.0-47.0); Hemoglobin 12.2 g/dL (12.0-15.0); Immature Granulocyte Absolute 0.01 K/mm3 (0.00-0.031); Immature Granulocyte Percent A 0.2 % (0-0.5); Lymphocytes Absolute Auto 1.97 K/mm3 (0.9-3.2); Lymphocytes Percent Auto 36.4 % (18.3-44.2); Mean Corpuscular HGB Conc 31.9 g/dl (32-36); Mean Corpuscular Hemoglobin 29.6 pg (26-34); Mean Corpuscular Volume 92.7 fl (80-100); Monocytes Absolute Auto 0.4 K/mm3 (0.1-0.6); Monocytes Percent Auto 7.9 % (2.6-8.5); Neutrophils Absolute Auto 2.9 K/mm3 (1.3-6.7); Neutrophils Percent Auto 53.1 % (45.5-73.1); Platelet Count Result 244 k/mm3 (150-375); Red Blood Count 4.12 M/mm3 (4.2-5.4); Red Cell Distribution Width 14.3 % (11.5-14.5); White Blood Count 5.4 K/mm3 (4.5-10.0)
[2023-05-31 12:39] LABS: Vitamin D 25 Hydroxy 51.4 ng/mL
[2023-05-31 12:54] LABS: Folic Acid 7.5 ng/mL (2.76->20)
== END 2023-05-31 11:03 | disposition home or self-care (01) ==
LOC: ANHLAB 11:05
PROVIDERS: PCP Physician Assistant; Visit Provider Physician Assistant
DX: E55.9 Vitamin D deficiency, unspecified (principal); R53.83 Other fatigue
CPT/HCPCS: 36415; 82306; 82607; 82746; 85025

== ENCOUNTER 2024-08-13 11:09 | Outpatient (CLI) | payer MEDICARE, OTHER, SELFPAY ==
[2024-08-13 11:47] LABS: Basophils Percent Auto 0.5 % (0.2-1.2); Eosinophils Absolute Auto 0.1 K/mm3 (0-0.3); Eosinophils Percent Auto 2.5 % (0-4.4); Hematocrit 38.7 % (37.0-47.0); Hemoglobin 12.4 g/dL (12.0-15.0); Immature Granulocyte Absolute 0.01 K/mm3 (0.00-0.031); Immature Granulocyte Percent A 0.3 % (0-0.5); Lymphocytes Absolute Auto 1.75 K/mm3 (0.9-3.2); Mean Corpuscular Hemoglobin 29.2 pg (26-34); Mean Corpuscular Volume 91.3 fl (80-100); Mean Platelet Volume 10.2 fl (7.4-10.4); Monocytes Absolute Auto 0.2 K/mm3 (0.1-0.6); Monocytes Percent Auto 5.8 % (2.6-8.5); Neutrophils Absolute Auto 1.9 K/mm3 (1.3-6.7); Neutrophils Percent Auto 46.9 % (45.5-73.1); Platelet Count Result 249 k/mm3 (150-375); Red Blood Count 4.24 M/mm3 (4.2-5.4); Red Cell Distribution Width 13.4 % (11.5-14.5)
[2024-08-13 11:53] LABS: Alanine Aminotransferase 25 U/L (6-35); Albumin Level 4.4 g/dL (3.5-5.1); Alkaline Phosphatase 93 U/L (38-126); Anion Gap 8 mmol/L (4-12); Aspartate Amino Transferase 30 U/L (14-36); Blood Urea Nitrogen 14 mg/dL (7-17); Calcium 9.6 mg/dL (8.4-10.2); Carbon Dioxide 24 mmol/L (22-30); Chloride 107 mmol/L (98-107); Estimated Glomerular Filt Rate > 60; Glucose 114 mg/dL (65-110); Sodium 139 mmol/L (137-145); Total Protein 7.4 g/dL (6.3-8.2)
--- OUTSIDE RECORDS SUMMARY | 2024-08-13 12:00 | XMS_ITS | Clinical Summary ---
Author Organization [facility] [address] [place] [id number] Care Team Providers Care Director Of Special Education Name Role Phone London Tiwari DO Primary Care Provider [phone] Allergies No known active allergies Medications atorvastatin (LIPITOR) 40 mg tablet 07/14/2021 Active cholecalciferol (VITAMIN D-3) 2000 unit tablet 07/14/2021 Active fluticasone propionate (FLONASE) 50 mcg/actuation nasal spray 07/14/2021 Active hydroCHLOROthiazid e (HYDRODIURIL) 25 mg tablet 07/14/2021 Active Synthroid 88 mcg tablet 07/14/2021 Active lisinopriL (PRINIVIL,ZESTRIL) 30 mg tablet 07/14/2021 Active sertraline (ZOLOFT) 50 mg tablet 07/14/2021 Active COQ10, UBIQUINOL, ORAL Active calcium carb and citrate-vitD3 600 mg-12.5 mcg (500 unit) tablet extended release Act lizzy ibuprofen (ADVIL,MOTRIN) 400 mg tablet 04/14/2021 Active Active Problems Problem Noted Date Diagnosed Date Family history of breast cancer 08/30/2021 Family history of colon cancer 08/30/2021 Family history of thyroid cancer 08/30/2021 Other specified hypothyroidism 07/18/2018 Age-related osteoporosis wit hout current pathological fracture 11/16/2016 Benign neoplasm of left adrenal gland 05/24/2015 Bleeding internal hemorrhoids 06/09/2010 Encounters Date Type Department Care Team Description 07/30/2024 4:03 PM CDT - 07/30/2024 11:59 PM CDT Hospital Encounter [facility] [address] [place] [address] Screening mammogram, encounter for Discharge Disposition: Discharge to home or self care from Last 3 Months Immunizations Immunization Administration Dates Next Due COVID-19 mRNA ([employer]) 0.3 m L (30 mcg) vaccine (12 years and up) 11/22/2022 Influenza, Quad, Adjuvantate d, Intramuscular 11/25/2020 Influenza, Quadrivalent, Hig h Dose, Preservative Free, Intrr 12/04/2019 Influenza, Quadrivalent, Spl it, Intramuscular 11/20/2016,11/10/2015,11/21/2014,11/25,01/27/2008 Influenza, Trivalent, High D ose, Split, Preservative Free, Intramuscular 11/19/2018,11/19/2018,11/05/2017,11/23 Influenza, Trivalent, IM (MDV) 11/15/2014,2011 Influenza, Unspecified 11/05/2017,12/11/2002,10/2000 Moderna Sars-cov-2 Bivalent Vaccine 50 Mcg/0.5 mL (12+ YRS)-Blue/Hendrickson 01/16/2022 Pfizer Sars-Cov-2 Bivalent V accination (12+ YRS) 06/22/2022 Pneumococcal Conjugate PCV 13 03/21/2015 Pneumococcal Polysaccharide PPV23 09/07/2016 Td, adsorbed 12/11/2002 Tdap 03/15/2020,02/20/2010 ZOSTER LIVE 03/20/2010 ZOSTER Recombinant 01/27/2020,11/09/2019 Surgical History Surgery Date Site/Laterality Comments BREAST BIOPSY Medical History Medical History Date Comments Hypothyroid Hypertension Hyperlipidemia Depression Osteoporosis Vitamin D deficiency Family History Medical History Relation Name Comments No Known Problems Brother 1 Cardiomegaly Brother 2 COD at 42 No Known Problems Daughter 1 Jacqueline No Known Problems Daughter 2 Mirta Colon cancer Father Non-Hodgkin's Lymphoma Father Thyroid disease, possibly cancer Father's Sister 1 COD at 22 Thyroid disease Father's Sister 2 Colon cancer Father's Sister 3 Accident Maternal Grandfather COD at ~30 Breast cancer Maternal Grandmother Breast cancer Mother Lung cancer Mother history of smok ing Stroke Paternal Grandfather Dementia Paternal Grandmother Thyroid cancer Paternal cousin 1 Oral cancer Paternal cousin 2 Thyroid cancer Paternal cousin 2 No Known Problems Son 1 Scott No Known Problems Son 2 Keviin Relation Name Status Comments Brother 1 Alive Brother 2 (Age 42) Daughter 1 Jacqueline Alive Daughter 2 Mirta Alive Father (Age 77) Father's Sister 1 (Age 22) Father's Sister 2 Alive Father's Sister 3 (Age 77) Maternal Grandfather (Age 30) Maternal Grandmother (Age 97) Mother (Age 79) Paternal Grandfather (Age 85) Paternal Grandmother (Age 85) Paternal cousin 1 Alive Paternal cousin 2 Alive Son 1 Scott Alive Son 2 Keviin Alive Social History Tobacco Use Types Packs/Day Years Used Date Smoking Tobacco: Former Comments No Sex and Gender Information Value Date Recorded Sex Assigned at Not on file 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 Gender Identity Female 07/30/2020 6:57 PM CDT Sexual Orientation Straight 07/30/2020 6: 57 PM CDT Obstetrics History Para Term AB IAB SAB Ectopic Multiple Livin g Live Births 4 4 4 Date Outcome GA Total Labor Labor/2nd/3rd Weight Sex Type Anes PTL Eun A1 A5 Name Clin Term Term Term Term Plan of Treatment Health Maintenance Due Date Last Done Comments Colon Cancer Screening-Colonoscopy 1950 Depression Screening 1950 Fall Risk Assessment 1950 Hepatitis C Screening 1950 Hepatitis B Screening 02/12/1968 Well Visit 65+ 2015 Covid-19 Vaccine (2023-2 5 season) 2023 11/22/2022, 06/22/2022, 01/16/2022, Additional history exists Influenza Vaccine (Season Ended) 2024 12/17/2022, 12/06/2021, 11/25/2020, Additional history exists Breast Cancer Screening-Mammogram 07/30/2025 07/30/2024, 06/20/2023, 06/18/2022, Additional history exists Osteoporosis Screening-Bone Density Scan 04/28/2026 04/28/2024, 04/28/2024, 03/26/2023, Additional history exists DTaP/Tdap/Td Vaccine (3 - Td or Tdap) 03/15/2030 03/15/2020, 02/20/2010, 12/11/2002 Pneumococcal vaccine 65+ Completed 09/07/2016, 02/26 Zoster Vaccine Completed 01/27/2020, 10/26, 03/20/2010 Procedures Procedure Name Priority Date/Time Associated Diagnosis Comments SCREENING MAMMOGRAM BILATERAL W DIMAS Schedule Routine, Read Routine (OP Routine) 07/30/2024 4:17 PM CDT Screening mammogram, encounter for from Last 3 Months Results * Screening Mammogram Bilateral W Dimas (07/30/2024 4:17 PM CDT) Anatomical Region Laterality Modality Breast Bilateral Mammography Impressions 07/30/2024 4:35 PM CDT Bilateral No evidence of malignancy in either breast. OVERALL BI-RADS FINAL ASSESSMENT: 1 - Negative RECOMMENDATION: Recommend bilateral annual screening mammography. Narrative 07/30/2024 4:35 PM CDT EXAMINATION: Screening Mammogram Bilateral W Dimas: 07/30/2024 COMPARISON: Relevant prior studies available at the time of interpretation were reviewed. TECHNIQUE: Mammography was performed with 2D and digital breast tomosynthesis (DBT) images. CAD was utilized. BREAST PARENCHYMAL COMPOSITION: There are scattered areas of fibroglandular density. FINDINGS: Bilateral There is no suspicious mass, calcification, or architectural distortion in either breast. us Self Screening Mammogram IMG MAMMO PROCEDURES Fi nal Result from Last 3 Months Insurance MEDICARE FOR LIFE MEDICARE FOR LIFE Care Teams Director Of Special Education Relationship Specialty Start Date End Date Karie, London, DO [address] [facility] [address] [place] [address] PCP - General Internal Medicine 11/14/23
--- OUTSIDE RECORDS SUMMARY | 2024-08-13 12:00 | XMS_ITS | Referral Summary ---
Author Organization [facility] [address] [place] [id number] Care Team Providers Care Pharmacy Intake Coordinator Name Role Phone London Tiwari DO Primary Care Provider [phone] Encounters Date Type Department Care Team Description 07/30/2024 4:03 PM CDT - 07/30/2024 11:59 PM CDT Hospital Encounter [facility] 1 [facility] [address] [facility] [address] [place] [phone] Screening mammogram, encounter for Discharge Disposition: Discharge to home or self care from Last 3 Months Allergies No known active allergies Medications atorvastatin [...] adrenal gland 05/24/2015 Bleeding internal hemorrhoids 06/09/2010 Immunizations Immunization Administration Dates Next Due COVID-19 mRNA ([employer] ([employer])) 0.3 m L (30 mcg) vaccine (12 years and up) 11/22/2022 Influenza, Quad, Adjuvantate d, Intramuscular 11/25/2020 Influenza, Quadrivalent, Hig h Dose, Preservative Free, Intrr 12/04/2019 Influenza, Quadrivalent, Spl it, Intramuscular 11/20/2016,11/10/2015,11/21/2014,11/25,01/27/2008 Influenza, Trivalent, High D ose, Split, Preservative Free, Intramuscular 11/19/2018,11/19/2018,11/05/2017,11/23 Influenza, Trivalent, IM (MDV) 11/15/2014,2011 Influenza, Unspecified 11/05/2017,12/11/2002,10/2000 Moderna Sars-cov-2 Bivalent Vaccine 50 Mcg/0.5 mL (12+ YRS)-Blue/Hendrickson 01/16/2022 REEL Qualified Sars-Cov-2 Bivalent V accination (12+ YRS) 06/22/2022 Pneumococcal Conjugate PCV 13 03/21/2015 Pneumococcal Polysaccharide PPV23 09/07/2016 Td, adsorbed 12/11/2002 Tdap 03/15/2020,02/20/2010 ZOSTER LIVE 03/20/2010 ZOSTER Recombinant 01/27/2020,11/09/2019 Social History Tobacco Use Types Packs/Day Years Used Date Smoking Tobacco: Former Comments No Sex and Gender Information Value Date Recorded Sex Assigned at Not on file 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 [address] [place], [place] [id number] PCP - General Internal Medicine 11/14/23
--- OUTSIDE RECORDS SUMMARY | 2024-08-13 12:01 | XMS_ITS | Continuity of Care Document ---
Author Name [facility] Organization [facility] Care Team Providers Care Wire Walker Name Role Phone [facility] Unavailable Unavailable Problems Combined list of problems from Department of Defense and Veterans Affairs facilities. It does not include entries that were removed or entered in error. Problem Status Onset Date Problem Type Date of Resolution Comments Source Menopausal osteoporosis Active 4 Diagnosis [facility] Osteoporosis Active 4 Diagnosis [facility] Obesity, unspecified Active 4 Diagnosis [facility] BMI 30.0 to 30.9 Active 4 Diagnosis [facility] Encounter for gynecological examination (general) (routine) with abnormal findings Active 4 Diagnosis [facility] Other signs and symptoms in breast Active 4 Diagnosis [facility] Female urinary stress incontinence Active 4 Diagnosis [facility] Essential (primary) hypertension Active 5 Condition DoD Essential hypertension Active 5 Condition [facility] 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 DoD Cyst of kidney, acquired Active Condition DoD joint pain fingers Active Condition DoD Blood Pressure Isolated Elevated Active Condition DoD DYSLIPIDEMIA Active Condition DoD Laboratory Studies Inactive Condition Do D HYPOTHYROIDISM SUBCLINICAL Active Condition DoD RESTLESS LEGS SYNDROME Active Condition DoD HEMORRHOIDS Active Condition DoD Cervix Sample Taken For Pap Smear Inactive Condition DoD Cervical Pap Smear Active Condition DoD visit for: screening exam Active Condition DoD visit for: administrative purpose Inactive Condition DoD SECONDARY INSOMNIA Active Condition DoD Mammogram Screening Active Condition DoD OSTEOPENIA Active Condition DoD Physical Examination Inactive Condition DoD Vaccines Prophylactic Need Against Influenza Inactive Condition DoD visit for: laboratory Inactive Condition Patient identified on answering machine and lab information was relatyed to her. Patient needs to go to medical records to request a copy of her labs. DoD allergies Active Condition Seasonal - will refill her zyrtec. DoD ESOPHAGEAL REFLUX Active Condition Re fill ranitidine. [facility] NORMAL ROUTINE HISTORY AND PHYSICAL ADULT (18-65) Inactive Condition Normal examination. Patient told to stop by the [facility] lab to have these drawn. DoD visit for: screening malignant neoplasm colon Active Condition Colonoscopy was last year (Several benign polyps removed) - next one in 4 years - patient with Father and Aunt with Colon Ca (in 60s). DoD DEPRESSION Active Condition Refill medication - patient on Zoloft 100mg po qd not paroxetine. No SI or HI. Patient reports that the medication works well. DoD VAGINITIS POSTMENOPAUSAL ATROPHIC Active Condition Refill medication. DoD visit for: screening exam diabetes mellitus Inactive Condition DoD ROUTINE GYNECOLOGICAL EXAM WITH CERVICAL PAP SMEAR Active Condition DoD visit for: screening exam malignant neoplasm breast Inactive Condition Unremarkable breast exam. Mammogram ordered. Patient told to call for an appointment at [facility] radiology department. MOP with breast CA at 43 yo - will referr for genetics testing. DoD OSTEOPOROSIS Active Condition Refill medications. DoD visit for: issue repeat prescription Inactive Condition DoD visit for: issue repeat prescription for medication Inactive Condition DoD ECZEMA Active Condition see below DoD ALCOHOL DISORDERS Active Condition see below Do D visit for: screening exam for malignant neoplasm cervix Inactive Condition Last PAP WNL. PAP performed DoD anxiety Active Condition DoD Atrophic vaginitis1 Active Condition Outside Source Comment: Refill medication. [facility] Benign neoplasm of adrenal gland Active Condition [facility] Depressive disorder2 Active Condition Outside Source Comment: Refill medication - patient on Zoloft 100mg po qd not paroxetine. No SI or HI. Patient reports that the medication works well. [facility] Dyslipidemia Active Condition [facility] Esophageal reflux finding3 Active Condition Outside Source Comment: Refill ranitidine. [facility] Esophagus disorder4 Active Condition deviation to the right; noted during adrenal surgery 07/18 [facility] Hemorrhoids Active Condition [facility] Osteoporosis5 Active Condition Outsid e Source Comment: Refill medications. [facility] Restless legs Active Condition [facility] Single acquired kidney cyst Active Condition [facility] Subclinical hypothyroidism Active Condition [facility] Medications Combined list of outpatient medications from Department of Defense and Veterans Affairs facilities.Medications provided include 1) outpatient medications from the last 15 months, and 2) patient-reported medications. Medication Details Route Status Patient Instructions Prescription Expires Prescription Number Last Dispense Date Ordering Provider Order Date Order Qty Source Albuterol (Eqv-ProAir HFA) 90 mcg/inh inhalation aerosol 8 unknown unit, 0 total refill(s ), Soft Stop Discont inued 10/12/20222022 0055C-[address] [place] [address] Albuterol (Eqv-ProAir HFA) 90 mcg/inh inhalation aerosol 8 unknown unit, 0 Refill(s ), 0 total refill(s ), Soft Stop Ordered 2023 0055C-[address] [place] [address] albuterol 90 mcg inhaler [8.5g] See Instruct ions, # 8 g, 1 total refill(s ), Hard Stop Complet ed 10/02/2023 4 2023 8.5 Ambulat ory Pharmac y amLODIPine 5 mg oral tablet 90 tab(s), 0 total refill(s ), Soft Stop Discont inued 10/12/20222022 0055C-3 [facility] amLODIPine 5 mg oral tablet 90 tab(s), 0 Refill(s ), 0 total refill(s ), Soft Stop Discont inued 10/21/20232023 0055C-3 [facility] amLODIPine 5 mg tablet 5 mg, Oral, Daily, # 90 EA, 3 total refill(s ), Hard Stop Oral (given by mouth) Complet ed 02/01/2024 4 2023 90.0 Ambulat ory Pharmac y amLODIPine 5 mg tablet = 1 tab(s), Oral, Daily, # 90 EA, 3 total refill(s ), Hard Stop Oral (given by mouth) Ordered 02/02/2025 5 2024 90.0 Ambulat ory Pharmac y amLODIPine 5 mg tablet 5 mg, # 90 EA, 3 total refill(s ), Acute Discont inued 04/29/2023 4 2023 90.0 Ambulat ory Pharmac y AMLODIPINE BESYLATE (amlodipine besylate), 10 MG, TABLET, ORAL, [facility], 1000 ea. BOTTLE Active [id number] 4 2023 90 Pharmac y Data Transac tion Service Facilit y atorvastati n 40 mg oral tablet 90 tab(s), 0 total refill(s ), Soft Stop Discont inued 10/12/20222022 [facility] atorvastati n 40 mg oral tablet 90 tab(s), 0 Refill(s ), 0 total refill(s ), Soft Stop Discont inued 10/21/20232023 00[facility] atorvastati n 40 mg tablet See Instruct ions, Oral, every day at bedtime, # 90 EA, 3 total refill(s ), Hard Stop Oral (given by mouth) Complet ed 02/01/2024 4 2023 90.0 Ambulat ory Pharmac y atorvastati n 40 mg tablet = 1 tab(s), Oral, # 90 EA, 3 total refill(s ), Hard Stop Oral (given by mouth) Ordered 02/02/2025 5 2024 90.0 Ambulat ory Pharmac y atorvastati n 40 mg tablet See Instruct ions, # 90 EA, 1 total refill(s ), Acute Complet ed 01/21/2023 3 2022 90.0 Ambulat ory Pharmac y calcium gluconate 650 mg oral tablet 1 tab(s), Oral, BID, # 100 tab(s), 0 total refill(s ), Maintena nce Oral (given by mouth) Ordered 2022 100.0 [facility] CoQ10 Oral, Daily, 0 total refill(s ), Maintena nce Oral (given by mouth) Discont inued 10/21/20232023 [facility] fluticasone 50 mcg/inh nasal spray 16 spray(s) , 0 Refill(s ), 0 total refill(s ), Soft Stop Discont inued 10/21/20232023 0055C[facility]3 [facility] fluticasone 50 mcg/inh nasal spray [16g] See Instruct ions, # 16 g, 3 total refill(s ), Hard Stop Complet ed 02/01/2024 4 2023 16.0 Ambulat ory Pharmac y hydroCHLORO thiazide 25 mg oral tablet 90 tab(s), 0 Refill(s ), 0 total refill(s ), Soft Stop Discont inued 10/21/20232023 0055C[facility]3 [facility] hydroCHLORO thiazide 25 mg tablet 25 mg, Oral, Daily, # 90 EA, 3 total refill(s ), Hard Stop Oral (given by mouth) Complet ed 10/21/2023 4 2023 90.0 Ambulat ory Pharmac y hydroCHLORO thiazide 25 mg tablet See Instruct too, # 90 EA, 1 total refill(s ), Acute Complet ed 01/21/2023 3 2022 90.0 Ambulat ory Pharmac y HYDROCORTIS ONE (hydrocorti sone), 10 MG, TABLET, ORAL, [facility], 100 ea. BOTTLE Cancele d [id number] : 2023 0 Pharmac y Data Transac tion Service Facilit y HYDROCORTIS ONE (hydrocorti sone), 20 MG, TABLET, ORAL, [facility], 100 ea. BOTTLE Cancele d [id number] : 2023 0 Pharmac y Data Transac tion Service Facilit y hydrocortis one 10 mg oral tablet 45 EA, 0 Refill(s ), TAKE 1 AND A HALF TABLETS BY MOUTH ONCE DAILY., 0 total refill(s ), Soft Stop Discont inued 10/21/20232023 [facility]55C[facility]3 [facility] hydrocortis one 20 mg oral tablet 28 EA, 0 Refill(s ), TAKE 1 TABLET BY MOUTH ONCE DAILY FOR 28 DAYS. DISCUSS THIS MEDICINE WITH YOUR ENDOCRIN OLOGIST, 0 total refill(s ), Soft Stop Discont inued 10/21/20232023 00[facility] hydrocortis one 5 mg oral tablet 1 tab(s), Oral, BID, 0 total refill(s ), Maintena nce Oral (given by mouth) Ordered 2023 [facility] ibuprofen 400 mg oral tablet *NOTE DOSE* TAKE ONE-HALF TABLET BY MOUTH EVERY SIX HOURS NEEDED FOR PAIN, # 60 EA, 3 total refill(s ), Acute Complet ed 04/18/2023 3 2023 60.0 Ambulat ory Pharmac y ibuprofen 400 mg oral tablet 60 tab(s), 0 total refill(s ), Soft Stop Discont inued 10/12/20222022 [facility]55C[facility]3 [facility] levothyroxi ne (Synthroid) 112 mcg tablet = 1 tab(s), Oral, Daily, # 90 EA, 3 total refill(s ), Soft Stop Oral (given by mouth) Ordered 5 2024 90.0 Ambulat ory Pharmac y levothyroxi ne (Synthroid) 88 mcg tablet 88 mcg, Oral, every morning, # 90 EA, 3 total refill(s ), Hard Stop Oral (given by mouth) Complet ed 02/01/2024 4 2023 90.0 Ambulat ory Pharmac y levothyroxi ne (Synthroid) 88 mcg tablet = 1 tab(s), Oral, every morning, # 90 EA, 3 total refill(s ), Hard Stop Oral (given by mouth) Discont inued 07/24/2024 5 2024 90.0 Ambulat ory Pharmac y levothyroxi ne (Synthroid) 88 mcg tablet See dose instruct ions in comments , # 90 EA, 1 total refill(s ), Acute Complet ed 01/21/2023 3 2022 90.0 Ambulat ory Pharmac y lidocaine 5% topical ointment 30 g, APPLY TOPICALL Y TO THE AFFECTED AREA TWICE DAILY NEEDED FOR PAIN, 0 total refill(s ), Soft Stop Discont inued 10/21/20232023 [facility] lisinopril 30 mg oral tablet 90 tab(s), 0 total refill(s ), Soft Stop Discont inued 10/12/20222022 0055C[facility]3 [facility] lisinopril 30 mg oral tablet 90 tab(s), 0 Refill(s ), 0 total refill(s ), Soft Stop Discont inued 10/21/20232023 [facility] lisinopril 30 mg tablet 30 mg, Oral, every day at bedtime, # 90 EA, 3 total refill(s ), Hard Stop Oral (given by mouth) Complet ed 10/21/2023 4 2023 90.0 Ambulat ory Pharmac y lisinopril 30 mg tablet See Instruct ions, # 90 EA, 1 total refill(s ), Acute Complet ed 01/21/2023 3 2022 90.0 Ambulat ory Pharmac y loratadine 10 mg oral tablet 90 tab(s), 0 total refill(s ), Soft Stop Complet ed 10/21/20232023 [facility] loratadine 10 mg oral tablet TAKE ONE TABLET BY MOUTH EVERY DAY FOR ALLERGY, # 90 EA, 2 total refill(s ), Acute Complet ed 09/04/2022 3 2022 90.0 Ambulat ory Pharmac y neomycin/po lymyxin B/dexametha sone 3.5 mg-10,000 units-1 mg/g ophthalmic ointment 3 g, 0 Refill(s ), 0 total refill(s ), Soft Stop Discont inued 10/21/20232023 0055C-[address] [place] [address] [facility]ain oxyCODONE 5 mg oral tablet 12 EA, 0 Refill(s ), TAKE 1 TABLET BY MOUTH EVERY 6 HOURS NEEDED, 0 total refill(s ), Soft Stop Discont inued 10/21/20232023 [facility] OXYCODONE HCL (OXYCODONE HCL), 5MG, TABLET, ORAL, [facility], 100 ea. BOTTLE Active [id number] 4 2023 12 Pharmac y Data Transac tion Service Facilit y Phosphorous Supplement oral powder for reconstitut ion 21 EA, 0 Refill(s ), MIX AND DRINK 1 PACKET BY MOUTH THREE TIMES DAILY WITH MEALS FOR 7 DAYS, 0 total refill(s ), Soft Stop Discont inued 10/21/20232023 0055C-3 [facility] [place] [place] Premarin 0.625 mg/g vaginal cream with applicator See instruct ions, Insert 0.5 grams vaginall y daily for 2wks, then use 2x/wk on Saturday's and 's, # 30 g, 5 total refill(s ), [facility] Ordered 4 2023 30.0 0055C-3 [facility] [place] [place] Premarin 0.625 mg/g vaginal cream with applicator 1 g, Vaginal, Sat/ s, place in vag nightly for 2wks, then use 2x/wk; apply small amt to post introitu s daily, # 30 g, 6 total refill(s ), [facility], Pharmacy : [facility] Vagina l (in the vagina ) Discont inued 10/21/2023 4 2023 30.0 0055C-3 [facility] sertraline 50 mg oral tablet 90 tab(s), 0 total refill(s ), Soft Stop Discont inued 10/12/20222022 0055C-3 75[facility] [place] sertraline 50 mg oral tablet 90 tab(s), 0 Refill(s ), 0 total refill(s ), Soft Stop Discont inued 10/21/20232023 0055C-3 [facility] [place] sertraline 50 mg tablet 50 mg, Oral, every day at bedtime, # 90 EA, 3 total refill(s ), Hard Stop Oral (given by mouth) Complet ed 02/01/2024 4 2023 90.0 Ambulat ory Pharmac y sertraline 50 mg tablet = 1 tab(s), Oral, # 90 EA, 3 total refill(s ), Hard Stop Oral (given by mouth) Ordered 02/02/2025 2024 90.0 Ambulat ory Pharmac y sertraline 50 mg tablet See dose instruct ions in comments , # 90 EA, 1 total refill(s ), Acute Complet ed 01/21/2023 2022 90.0 Ambulat ory Pharmac y Synthroid 88 mcg oral tablet 90 tab(s), 0 total refill(s ), Soft Stop Discont inued 10/12/20222022 [facility] Synthroid 88 mcg oral tablet 90 tab(s), 0 Refill(s ), 0 total refill(s ), Soft Stop Discont inued 10/21/20232023 [facility] Vitamin B12 1000 mcg oral tablet tab(s), Oral, Daily, 0 total refill(s ), Maintena nce Oral (given by mouth) Ordered 2022 [facility] Vitamin D3 50 mcg (2000 intl units) oral tablet tab(s), Oral, Daily, 0 total refill(s ), Maintena nce Oral (given by mouth) Ordered 2022 [facility] zoledronic acid/mannit ol (eqv-Reclas t) 5 mg/100 mL infusion 5 mg, IV Drip (Intrave nous), Once, 0 total refill(s ), Maintena nce Intrav enous Drip Ordered 2023 [facility] Allergies, Adverse Reactions, Alerts Combined list of allergies from Department of Defense and Veterans Affairs facilities. It does not include entries that were removed or entered in error. Substance Category Reaction Severity Reaction type Status Date Reported Comments Source NO OUTPUT FOR NCID [id number] Drug allergy (disorder) active 06/27/2007 [employer] [place] [place] Immun[place] Combined list of available immunizations from the Department of Defense and Veterans Affairs facilities. 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 Status Comments Source RSV vaccine preF3, recombinant 2022 DARLENERBRUNN ER 303 complet ed Result Comment: Route: Unknown Manufactu rer: OTH (SKB) 0055C-[address] [place] [address] [place] COVID-19 vaccine(Pfize r Bival 12yr+) 2022 DARLENERBRUNN ER 300 complet ed Result Comment: Route: Unknown Manufactu rer: OTH (PFR) 0055C-[address] [place] [address] [place] SARS-CoV-2 (COVID-19) mRNA-Bivalent 2021 DARLENERBRUNN ER 229 complet ed Result Comment: Route: Unknown Manufactu rer: OTH (MOD) 0055C-[address] [place] [address] [place] COVID-19, mRNA, LNP-S, PF, 100 mcg or 50 mcg dose 2020 ALUL, () Not Given COVID-19, mRNA, LNP-S, PF, 100 mcg or 50 mcg dose DoD COVID Vaccine Moderna 2020 BROCKALBAUGH 207 complet ed Result Comment: Unit: Unknown Manufactu rer: () 0055C-[address] [place] [address] [place] Influenza vaccine, quadrivalent, adjuvanted 2020 ALUL, () Not Given Influenza vaccine, quadrival ent, adjuvante d DoD influenza virus vaccine, unspecified 2020 DARLENERBRUNN ER 88 complet ed Result Comment: Route: Unknown Manufactu rer: OT (unk) 0055C-[address] [place] [address] Rom[place] influenza virus vaccine, inactivated 2020 BROCKALBAUGH 88 complet ed Result Comment: Unit: Unknown Manufactu rer: () 0055C-[address] [place] [address]- Rom[place] Tdap 2020 ALUL, () Not Given Tdap DoD tetanus, diphtheria, acellular pertu is 2020 BROCKALBAUGH 115 complet ed Result Comment: Unit: Unknown Manufactu rer: () 0055C-3 [facility] zoster recombinant 2019 ALUL, () Not Given zoster recombina nt DoD zoster vaccine, inactivated 2019 BROCKALBAUGH 187 complet ed Result Comment: Unit: Unknown Manufactu rer: () 0055C-[address] [place] [address]- [place] zoster recombinant 2019 ALUL, () Not Given zoster recombina nt DoD zoster vaccine, inactivated 2019 BROCKALBAUGH 187 complet ed Result Comment: Unit: Unknown Manufactu rer: () 0055C-3 [facility] zoster recombinant 2019 ALUL, () Not Given zoster recombina nt DoD zoster vaccine, inactivated 2019 BROCKALBAUGH 187 complet ed Result Comment: Unit: Unknown Manufactu rer: () 0055C-3 [facility] [place] Influenza, high dose seasonal 2018 ALUL, () Not Given Influenza , high dose seasonal DoD influenza, seasonal,high dose-pf 2018 BROCKALBAUGH 135 complet ed Result Comment: Unit: Unknown Manufactu rer: () 0055C-[address] [place] [address] Romain influenza, seasonal,high dose-pf 2017 135 sanofi pasteur complet ed influenza , seasonal, high dose-pf 11/05/17 Given Ambulat ory Pharmac y zoster recombinant 2017 KASUFSTEVE, () Not Given zoster recombina nt DoD zoster vaccine, inactivated 2017 BROCKALBAUGH 187 complet ed Result Comment: Unit: Unknown Manufactu rer: () 5C-3 [facility] Romain pneumococcal polysaccharid e, 23 valent 2016 TRANSCR IBED 33 complet ed pneumococ josefina polysacch aride, 23 valent 09/07/16 Given Ambulat ory Pharmac y pneumococcal polysaccharid e vaccine, 23 valent 1 2016 Unknown, Provider 33 Transcribed (TRS) complet ed pneumococ josefina polysacch aride vaccine, 23 valent DoD Influenza, high dose seasonal 2015 MARELY FORTE () Not Given Influenza , high dose seasonal DoD influenza, seasonal,high dose-pf 2015 BROCKALBAUGH 135 complet ed Result Comment: Unit: Unknown Manufactu rer: () 0055C-[address] [place] [address] Romain pneumococcal 13-valent conjugate (PCV13) 2015 Johnathan mcknight Arm [id number] [employer] complet ed pneumococ josefina 13-valent conjugate (PCV13) 03/21/15 Given Ambulat ory Pharmac y pneumococcal conjugate vaccine, 13 valent 1 2015 Unknown, Provider [id number] [employer]li[employer] (WAL) complet ed pneumococ josefina conjugate vaccine, 13 valent DoD influenza, injectable, quadrivalent- pf 2014 150 sanofi pasteur complet ed influenza , injectabl e, quadrival ent-pf 11/22/14 Given Ambulat ory Pharmac y influenza, injectable, quadrivalent, preservative free 2013 SURESH FORTE () Not Given influenza , injectabl e, quadrival ent, preservat lizzy free DoD influenza, injectable, quadrivalent- pf 2013 CA 150 complet ed Result Comment: Unit: Unknown Manufactu rer: () 0055C-3 [facility] influenza, seasonal, injectable 2011 TRANSCR IBED 141 complet ed influenza , seasonal, injectabl e 01/09/12 Given Ambulat ory Pharmac y Influenza, seasonal, injectable 1 2011 Unknown, Provider 141 Transcribed (TRS) complet ed Influenza , seasonal, injectabl e DoD zoster vaccine live 2010 zzLef t Arm [id number] [employer] complet ed zoster vaccine live 03/20/10 Given Ambulat ory Pharmac y zoster vaccine, live 1 2010 Unknown, Provider [id number] Merck (MSD) complet ed zoster vaccine, live DoD tetanus, diphtheria, acellular pertu is 2009 zzLef t Arm 115 complet ed tetanus, diphtheri a, acellular pertussis 02/20/10 Given Ambulat ory Pharmac y tetanus toxoid, reduced diphtheria toxoid, and acellular pertu is vaccine, adsorbed 1 2009 Unknown, Provider 115 () complet ed tetanus toxoid, reduced diphtheri a toxoid, and acellular pertussis vaccine, adsorbed DoD influenza virus vaccine,split 2009 15 complet ed influenza virus vaccine,s plit 11/25/09 Given Ambulat ory Pharmac y influenza virus vaccine, split virus (incl. purified surface antigen)-reti red CODE 2 2009 Unknown, Provider 15 Transcribed (TRS) complet ed influenza virus vaccine, split virus (incl. purified surface antigen)- retired CODE DoD influenza virus vaccine,split 2007 zzLef t Arm [id number] 15 GlaxoSmithKli ne complet ed influenza virus vaccine,s plit 01/27/08 Given Ambulat ory Pharmac y influenza virus vaccine, split virus (incl. purified surface antigen)-reti red CODE 1 2007 Unknown, Provider [id number] Dawit CastaliaKline (SKB) complet ed influenza virus vaccine, split virus (incl. purified surface antigen)- retired CODE DoD influenza virus vaccine, whole virus 2002 zzLef t Arm [id number] 16 sanofi pasteur complet ed influenza virus vaccine, whole virus 12/11/02 Given Ambulat ory Pharmac y tetanus-dipht h toxoids (Td) adult/adol 2002 zzLef t Arm [id number] sanofi pasteur complet ed tetanus-d iphth toxoids (Td) adult/ado l 12/11/02 Given Ambulat ory Pharmac y tetanus and diphtheria toxoids, adsorbed, preservative free, for adult use (2 Lf of tetanus toxoid and 2 Lf of diphtheria toxoid) 1 2002 Unknown, Provider [id number] 09 Sanofi Pasteur (PMC) complet ed tetanus and diphtheri a toxoids, adsorbed, preservat lizzy free, for adult use (2 Lf of tetanus toxoid and 2 Lf of diphtheri a toxoid) DoD influenza virus vaccine, whole virus 1 2002 Unknown, Provider [id number] 16 Sanofi Pasteur (PMC) complet ed influenza virus vaccine, whole virus DoD influenza virus vaccine, whole virus 2000 zzLef t Arm [id number] 16 sanofi pasteur complet ed influenza virus vaccine, whole virus 01/03/01 Given Ambulat ory Pharmac y influenza virus vaccine, whole virus 1 2000 Unknown, Provider [id number] Sanofi Pasteur ([facility]) complet ed influenza virus vaccine, whole virus [facility] Vital Signs Combined list of inpatient and outpatient Vital Signs from Department of Defense and Veterans Affairs, ranging from 12 months to all on record, depending upon the facility. Vital Sign Value Date Comments Source Respiratory Rate 18 br/min 10/21/2023 19:14:00 [facility] Peripheral Pulse Rate 73 bpm 10/21/2023 19:14:00 [facility] Temperature Oral 37.0 Awa 10/21/2023 19:14:00 [facility] Systolic Blood Pressure 130 mm[Hg] 10/21/2023 19:14:00 [facility] Diastolic Blood Pressure 84 mm[Hg] 10/21/2023 19:14:00 [facility] Mean Arterial Pressure, Calc 99 mm[Hg] 10/21/2023 19:14:00 [facility] Respiratory Rate 16 br/min 10/12/2022 15:42:00 [facility] Mean Arterial Pressure, Calc 106 mm[Hg] 10/12/2022 15:42:00 [facility] Systolic Blood Pressure 142 mm[Hg] 10/12/2022 15:42:00 [facility] Diastolic Blood Pressure 88 mm[Hg] 10/12/2022 15:42:00 [facility] Peripheral Pulse Rate 72 bpm 10/12/2022 15:42:00 [facility] Blood Pressure Manual Manual 10/12/2022 15:42:00 [facility] BP Site Right arm 10/12/2022 15:42:00 00[facility] Temperature Oral 36.3 Awa 10/12/2022 15:42:00 [facility] Encounters Combined list of: 1) Encounters from Department of Veterans Affairs facilities going backup to the last 18 months, not all VA inpatient encounters are included; 2) Encounters from the Department of Defense facilities going backup to 280 months. Location Location Details Encounter Type Encounter Number Reason For Visit Attending Provider ADM Date DC Date Status Disposition Source [address] [place] [address] Romain [place]ARTIN [place] [place] [place] [facility] TELE CONSULT [id number] med request CAPRICE TALBERT 08/[address] [place] [address] Romain MARTIN [facility] [place]S [facility] Blue) [address] [place] [address] Romain MARTIN [facility] [place]Sco tt [facility]) OUTPATIENT [id number] full physica l--NO PAP SMEAR CAPRICE TALBERT 03/01 Released w/o Limitations [address] [place] [address] Romain MARTIN [facility] [place]S [facility] Blue) [address] [place] [address] Romain MARTIN [facility] [place]Sco tt [facility] FAMRES Tm Blue) OUTPATIENT [id number] repeat pap ROB RODRIGUEZ R 03/14 Released w/o Limitations [address] [place] [address] Romain IBARRAB [place] [place] [facility] FAMRES Tm Blue) [address] [place] [address] Romain IBARRAB [place] [place]Sco tt [facility] FAMRES Tm Blue) OUTPATIENT [id number] f/u anti depress ant meds YAMMARIO-MALORIE Mckeon CAPRICE 03/19 Released w/o Limitations [address] [place] [address] Romain IBARRAB [place] [place] OF [facility] Tm Blue) [address] [place] [address] Romain IBARRAB [place] [place]co tt [facility] FAMRES Tm Blue) TELE CONSULT [id number] med refill EFREM MORENO 06/[address] [place] [address] Romain MARTIN [place] [place] [facility]RES Tm Blue) [address] [place] [address] Romain IBARRAB [place] [place]co [place] [facility] FAMRES Tm Blue) TELE CONSULT [id number] med refill OLESYA ROSARIO 11/[address] [place] [address] Romain MARTIN [facility]S cott [facility] FAMRES Tm Blue) [address] [place] [address] Romain IBARRAB [place] [place]co tt [facility] FAMRES Tm Blue) OUTPATIENT [id number] repeat pap/dys plasia NORMA CISNEROS 05/24 Released w/o Limitations [address] [place] [address] Romain IBARRAB [place] [place] [facility] FAMRES Tm Blue) [address] [place] [address] Romain IBARRAB [place] [place]Sco tt [facility] Fam Res Tm Green) OUTPATIENT [id number] WELL WOMAN EXAM WITH PAP MAGNOLIA CRAWFORD 07/09 Released w/o Limitations [address] [place] [address] Romain IBARRAB [place] [facility] Fam Res Tm Green) [address] [place] [address] Romain IBARRAB [place]Sco tt [facility] Fam Res Tm Green) TELE CONSULT [id number] MAGNOLIA Fortune 07/[address] [place] [address] Romain IBARRAB [place] [facility] Fam Res Tm Green) [address] [place] [address] Romain IBARRAB [place]Sco tt [facility] Fam Res Tm Green) TELE CONSULT [id number] MAGNOLIA SIMMONS 08/[address] [place] [address] Romain MARTIN [place] [place] cott OF Fam Res Tm Green) [address] [place] [address] Romain MARTIN [place] [place]co tt [facility] FAMRES Tm Blue) TELE CONSULT [id number] Lab Results MAGNOLIA CRAWFORD 10/[address] [place] [address] Romain MARTIN [place] OF [facility] Tm Blue) [address] [place] [address] Romain MARTIN [place] [place]co [place] [facility] FAMRES Tm Blue) OUTPATIENT [id number] flu shot DARELL SNYDER Damian 01/26 Released w/o Limitations [address] [place] [address] Romain MARTIN [place] OF [facility] Tm Blue) [address] [place] [address] Romain [place]ARTIN [place] [place]co tt [facility] FAMRES Tm Blue) OUTPATIENT [id number] annual physica l [id number] NAIF SANDERS 12/27 Released w/o Limitations [address] [place] [address] Romain MARTIN [place] [place] [facility] FAMRES Tm Blue) [address] [place] [address] Romain MARTIN [place]co tt [facility] Fam Res Tm Green) TELE CONSULT [id number] jessica wagoner ALICJA NUÑEZJESSIE 12/[address] [place] [address] Romain MARTIN [place] OF Fam Res Tm Green) [address] [place] [address] Romain [place]ARTIN [place] [place]co tt [facility] FAMRES Tm Blue) OUTPATIENT [id number] well woman [id number] NAIF SANDERS 01/03 Released w/o Limitations [address] [place] [address] Romain MARTIN [place] OF [facility] Tm Blue) [address] [place] [address] Romain MARTIN [place]Sco tt [facility] FAMRES Tm Blue) TELE CONSULT [id number] Request ing order for NAIF Gtz 01/[address] [place] [address] Romain MARTIN [place] OF [facility]RES Tm Blue) [address] [place] [address] Romain MARTIN [place]Sco tt [facility] FAMRES Tm Blue) TELE CONSULT [id number] odiliara RICKIE Stanley 08/[address] [place] [address] Romain MARTIN [place] OF [facility]RES Tm Blue) [address] [place] [address] Romain MARTIN [place] [place] [facility] FAMRES Tm Blue) TELE CONSULT [id number] refills MAGNOLIA KRISHNAMURTHY 11/[address] [place] [address] Romain STACEYB [facility]S cott OF FAMRES Tm Blue) [address] [place] [address] Romain STACEYB [facility]Sco tt [facility] FAMRES Tm Blue) TELE CONSULT [id number] Refill - MAGNOLIA Baires 11/[address] [place] [address] Romain STACEYB [facility]S cott OF FAMRES Tm Blue) [address] [place] [address] Romain IBARRAB [facility]Sco tt [facility] FAMRES Tm Blue) OUTPATIENT [id number] physica l NAIF SANDERS 03/20 Released w/o Limitations [address] [place] [address] Romain IBARRAB [facility]S cott [facility] FAMRES Tm Blue) [address] [place] [address] Romain STACEYB [facility] [place]Sco tt [facility] FAMRES Tm Blue) OUTPATIENT [id number] physica l [phone] MAGNOLIA KRISHNAMURTHY 01/22 Released w/o Limitations [address] [place] [address] Romain IBARRAB [facility]S cott [facility] FAMRES Tm Blue) [address] [place] [address] Romain STACEYB [facility]Sco tt [facility] FAMRES Tm Blue) OUTPATIENT [id number] annual exam [id number] MAGNOLIA KRISHNAMURTHY 04/06 Released w/o Limitations [address] [place] [address] Romain IBARRAB [facility]S cott [facility] FAMRES Tm Blue) [address] [place] [address] Romain STACEYB [facility]Sco tt [facility] FAMRES Tm Blue) TELE CONSULT [id number] Notes Entered by: RICKIE DOUGLAS 27 Apr 2011 1338 ------- ------- ------- ------- -- Tcon for lab results Dr Fausto mcknight ph [phone] cad dmMAGNOLIA Ferrer 04/[address] [place] [address] Romain STACEYB [facility]S cott [facility] FAMRES Tm Blue) [address] [place] [address] [employer] [facility]Sco tt [facility] FAMRES Tm Blue) OUTPATIENT [id number] F/U thyroid concern s [phone] ARJUN LAUGHLIN 05/21 Released w/o Limitations [address] [place] [address])(S cott [facility] FAMRES Tm Blue) [address] [place] [address])(Sco tt [facility] FAMMedicalis Tm Blue) TELE CONSULT [id number] Notes Entered by: PIPE PALUMBO 29 Jun 2011 1137 ------- ------- ------- ------- -- Lab request /Luis mcknight/Uday.5 500/mnm MAGNOLIA KRISHNAMURTHY 06/[address] [place] [address])(S cott [facility] EventHive Tm Blue) [address] [place] [address])(Sco tt [facility] EventHive Tm Blue) TELE CONSULT [id number] Notes Entered by: Teto AYON 19 Jul 2011 1419 ------- ------- ------- ------- -- Lab results Fausto mcknight/cad/c MAGNOLIA Barroso 07/[address] [place] [address])(S cott [facility] FAMMedicalis Tm Blue) [address] [place] [address])(Sco tt [facility] EventHive Tm Blue) TELE CONSULT [id number] Notes Entered by: RICKIE DOUGLAS 01 Oct 2011 1317 ------- ------- ------- ------- -- Tcon for to order lab work Dr Fausto mcknight ph [phone] cad RICKIE Serna 09/[address] [place] [address])(S cott [facility] FAMMedicalis Tm Blue) [address] [place] [address])(Sco tt [facility] Tiendeo Blue) TELE CONSULT [id number] Notes Entered by: RICKIE DOUGLAS 11 Oct 2011 1402 ------- ------- ------- ------- -- Tcon for Hep C testing Dr Fausto mcknight ph [phone] cad RICKIE Serna 10/[address] [place] [address])(S cott [facility] FAMRES Tm Blue) [address] [place] [address])(Sco tt [facility] Tm Blue) TELE CONSULT [id number] Notes Entered by: Teto AYON 05 Mar 2012 1310 ------- ------- ------- ------- -- Lab order/S eileen Silverman514 5500 ROSALIND MARTINEZ 03/[address] [place] [address])(S cott [facility] FAMRES Tm Blue) [address] [place] [address])(Sco tt [facility] Tm Blue) TELE CONSULT [id number] Notes Entered by: NANCY ARGUELLO 31 Mar 2012 1425 ------- ------- ------- ------- -- Lab results request -Eber shirley/[phone] 0 ROSALIND MARTINEZ 03/[address] [place] [address])(S cott [facility] FAMRES Tm Blue) [address] [place] [address])(Sco tt [facility] Tm Blue) OUTPATIENT [id number] Pt w/abnor mal lab request ed an appt w/pcm. MAGNOLIA KRISHNAMURTHY 04/17 Released w/o Limitations [address] [place] [address])(S cott [facility] FAMRES Tm Blue) [address] [place] [address])(Sco tt [facility] Tm Blue) TELE CONSULT [id number] Notes Entered by: ANUSHA DO 26 Jun 2012 1354 ------- ------- ------- ------- -- Lab results Fausto mcknight leave message if no answer NETO GUILLAUME 06/[address] [place] [address])(S cott [facility] FAMRES Tm Blue) [address] [place] [address])(Sco tt [facility] FAMRES Tm Blue) TELE CONSULT [id number] Notes Entered by: NANCY ARGUELLO 07 Oct 2012 1412 ------- ------- ------- ------- -- Lab request for medicat ion rizwana/ Mustapha / NEHAL DAVIS 10/[address] [place] [address] Romain [facility])(S [facility] FAMRES Tm Blue) [address] [place] [address])(Sco tt [facility] Tm Blue) TELE CONSULT [id number] Notes Entered by: AUBREY IGLESIAS 13 Oct 2012 1203 ------- ------- ------- ------- -- Lab results AUBREY IGLESIAS 10/[address] [place] [address])([facility] Tm Blue) [address] [place] [address])([facility] Tm Blue) TELE CONSULT [id number] Notes Entered by: AUBREY IGLESIAS 13 Mar 2013 0755 ------- ------- ------- ------- -- Micare Request AUBREY IGLESIAS 03/[address] [place] [address] Romain [facility])([facility] Tm Blue) [address] [place] [address])(Pro tt [facility] [place] Fam Res Tm Gold) TELE CONSULT [id number] med refjayme Cody VIVI PALOMARES 03/16 Referred for Appointment [address] [place] [address] Romain [facility])(S [facility] Fam Res Tm Gold) [address] [place] [address])(Sco tt [facility] [place] [place] Fam Res Tm Gold) TELE CONSULT [id number] Notes Entered by: RED CODY 29 Mar 2014 1318 ------- ------- ------- ------- -- Renew RED Kinney 03/[address] [place] [address] Romain [facility])(S [facility] Fam Res Tm Gold) [address] [place] [address])([facility]co tt [facility] [place] Fam Res Tm Gold) TELE CONSULT [id number] Notes Entered by: CAROL AGUIAR 04 Nov 2014 1439 ------- ------- ------- ------- -- Gastroe nterolo gy ReferGRACE Vogt 11/04 Referred for Appointment [address] [place] [address] Romain [facility])(S cott [facility] [place] [place] Fam Res Tm Gold) [address] [place] [address] Romain [facility])([facility]co tt [facility] [place] Fam Res Tm Gold) TELE CONSULT [id number] Notes Entered by: Fay SANTOS 13 Dec 2014 1143 ------- ------- ------- ------- -- [facility] Loren/Savanna / Escobar / ROSA MARTINEZ 12/[address] [place] [address] Romain [facility])(S cott [facility] [place] Fam Res Tm Gold) [address] [place] [address] Romain [facility])(Sco tt [facility] FAMRES Tm Blue) TELE CONSULT [id number] Notes Entered by: RICKIE DOUGLAS 14 Dec 2014 0732 ------- ------- ------- ------- -- Network results - Urgent Care 015 CELESTE BARRIOS 12/[address] [place] [address])(S [facility] FAMRES Tm Blue) [address] [place] [address])(Sco tt [facility] [place] Fam Res Tm Gold) TELE CONSULT [id number] Notes Entered by: SATYA BERRIOS 22 Dec 2014 1325 ------- ------- ------- ------- -- DAVE Howard 12/22 Referred for Appointment [address] [place] [address])(S [facility] Fam Res Tm Gold) [address] [place] [address] Romain [facility])([facility]co tt [facility] [place] [place] Fam Res Tm Gold) OUTPATIENT [id number] urgent care, [facility], r RED Gray 12/28 Released w/o Limitations [address] [place] [address])([facility] Fam Res Tm Gold) [address] [place] [address] Romain IBARRAB [facility])([facility] Fam Res Tm Gold) TELE CONSULT [id number] Notes Entered by: MARY OCAMPO 28 Dec 2014 1448 ------- ------- ------- ------- -- Network Results -GASTRO ENTEROL OGY 12/28/14 RED CODY 12/[address] [place] [address] Romain IBARRAB [facility])([facility] Fam Res Tm Gold) [address] [place] [address] Romain IBARRAB [facility])(Credit Review Analyst ecology) OUTPATIENT [id number] pap exam [phone] JAYNE BLAKE 01/18 Released w/o Limitations [address] [place] [address] Romain [facility])(G ynecolo gy) [address] [place] [address] Romain [employer] [facility])(Credit Review Analyst ecology) TELE CONSULT [id number] Notes Entered by: KARLENE BLAKE 19 Jan 2015 0757 ------- ------- ------- ------- -- results BRUNO ROSENTHAL 01/[address] [place] [address] Romain [facility])(G ynecolo gy) [address] [place] [address] Romain B [facility])(Ob/ Credit Review Analyst) TELE CONSULT [id number] BRUNO ROSENTHAL 01/[address] [place] [address] Romain [facility])(O b/Credit Review Analyst) [address] [place] [address] Romain [facility])(Credit Review Analyst ecology) TELE CONSULT [id number] Notes Entered by: KARLENE BLAKE 31 Jan 2015 0808 ------- ------- ------- ------- -- results BRUNO ROSENTHAL 01/[address] [place] [address] Romain [facility])(G ynecolo gy) [address] [place] [address] Romain B [facility])(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 Fam Res Tm Gold) TELE CONSULT [id number] Notes Entered by: PIPE PALUMBO 10 Feb 2015 1418 ------- ------- ------- ------- -- Lab results /escobar / WILL WOMACK 02/10 Released w/o Limitations [address] [place] [address] Group Romain B [facility])([facility] Fam Res Tm Gold) [address] [place] [address] Romain IBARRAB [facility])([facility] Fam Res Tm Gold) TELE CONSULT [id number] Notes Entered by: RICHARDSON BELCHER 28 Feb 2015 1322 ------- ------- ------- ------- -- High Blood pressur e update/ Escobar/ [id number] DAVE BERRIOS 02/28 Referred for Appointment [address] [place] [address] Group Romain B [facility])([facility] Fam Res Tm Gold) [address] [place] [address] Romain IBARRAB [facility] [place])(Credit Review Analyst ecology) TELE CONSULT [id number] Notes Entered by: MADELIN DURAN 02 Mar 2015 0916 ------- ------- ------- ------- -- Scanned Bilater al breast MRI into JAYNE HUDSON Jayce 03/[address] [place] [address] Romain B [facility]G ynecolo gy) [address] [place] [address] Romain IBARRAB [facility] [place])([facility] Fam Res Tm Red) TELE CONSULT [id number] Notes Entered by: WILL WOMACK 03 Mar 2015 1709 ------- ------- ------- ------- -- CT results WILL WOMACK 03/03 Referred for Appointment [address] [place] [address] Group Romain [employer] [facility])([facility] Fam Res Tm Red) [address] [place] [address] Romain B [facility] [place])(Credit Review Analyst ecology) TELE CONSULT [id number] Notes Entered by: MARY OCAMPO 04 Mar 2015 0938 ------- ------- ------- ------- -- Network Results -RADIOL OGY 5 JAYNE JAFFE 03/[address] [place] [address])(G ynecolo gy) [address] [place] [address])(Sco tt [facility] [place] Fam Res Tm Gold) OUTPATIENT [id number] fu bone density [phone] cyst on right kidney, blood pressur e RED Vaughan 03/21 Released w/o Limitations [address] [place], [place] [address]B [facility]S cott [facility] [place] [place] Fam Res Tm Gold) [address] [place] [address])(Credit Review Analyst ecology) TELE CONSULT [id number] Notes Entered by: KARLENE BLAKE 19 Apr 2015 0928 ------- ------- ------- ------- -- results DENISE LUJAN 04/[address] [place] [address])(G ynecolo gy) [address] [place] [address])(Med ication Refill Clinic) TELE CONSULT [id number] Notes Entered by: RADHIKA LORENZO 28 Sep 2016 1320 ------- ------- ------- ------- -- Med Renewal /Kelvin/ [phone] 0/clm DAVE BERRIOS 09/28 Referred for Appointment [address] [place] [address])(Rochelle garcias on Ref[facility]) [address] [place] [address])(Credit Review Analyst ecology) OUTPATIENT [id number] annual wwe - [phone] JAYNE BLAKE 10/05 Released w/o Limitations [address] [place] [address])(G ynecolo gy) [address] [place] [address])(Credit Review Analyst ecology) TELE CONSULT [id number] Notes Entered by: ABDULLAHI GONZALEZ 05 Oct 2016 1436 ------- ------- ------- ------- -- Lab Results JAIR CHIN TOMAS 10/05 Referred for Appointment [employer] [facility]G ynecolo gy) [facility] [place]AB [place]Credit Review Analyst ecology) TELE CONSULT [id number] Notes Entered by: ABDULLAHI GONZALEZ 08 Oct 2016 1319 ------- ------- ------- ------- -- Lab Results JAIR CHIN TOMAS 10/08 Referred for Appointment [employer] [place]G ynecoconnor gy) [facility] [employer] [facility] [place])(Ob/ Credit Review Analyst) TELE CONSULT [id number] Notes Entered by: YANELI MCNEAL 12 Oct 2016 0754 ------- ------- ------- ------- -- Normal lab SUSY MCNEAL 10/12 [facility] [employer] ([facility]O b/Credit Review Analyst) [facility] [employer] [place]Pro tt [facility] FAMRES Tm Blue) TELE CONSULT [id number] Notes Entered by: SUKUMAR PARKER 12 Oct 2016 1250 ------- ------- ------- ------- -- Lab Results /Kelvin/ DAVE BERRIOS 10/12 Referred for Appointment [facility] [employer] ([facility] cott [facility] FAMRES Tm Blue) [facility] [employer] [place] [place] [facility] Tm Blue) TELE CONSULT [id number] Notes Entered by: GEORGINA MELENDEZ 18 Oct 2016 0849 ------- ------- ------- ------- -- SABRA Marte 10/18 [facility] [employer] [place] [facility] Tm Blue) [facility] [employer] IBARRAB [facility]Sco tt [facility] FAMRES Tm Blue) OUTPATIENT [id number] fu labs, dyslipi demia YESSICA ROSARIO 10/24 Released w/o Limitations [address] [place] [address] [employer] STACEYSofia [facility]S cott [facility] FAMRES Tm Blue) [address] [place] [address] Romain [facility])(Credit Review Analyst ecology) TELE CONSULT [id number] Notes Entered by: MARY OCAMPO 01 Nov 2016 1029 ------- ------- ------- ------- -- Network Results -RADIOL OGY 10/16/16 SCREEN MAMMO JAYNE JAFFE 11/[address] [place] [address] [employer] STACEYS[employer] [facility]G ynecolo gy) [address] [place] [address] [employer] STACEYSofia [facility]Sco tt [facility] FAMRES Tm Blue) OUTPATIENT [id number] skin lesions YESSICA ROSARIO 11/05 Released w/o Limitations [address] [place] [address] [employer] STACEYSofia [facility]S cott [facility] FAMRES Tm Blue) [address] [place] [address] [employer] STACEYSofia [facility]Sco tt [facility] FAMRES Tm Blue) TELE CONSULT [id number] Notes Entered by: Sofia BRUMFIELD 13 Nov 2016 0755 ------- ------- ------- ------- -- Express scripts (Kelvin) YESSICA ROSARIO 11/[address] [place] [address] [employer] STACEYSofia [facility]S cott [facility] FAMRES Tm Blue) [address] [place] [address] Romain [facility])(Sco tt [facility] FAMRES Tm Blue) TELE CONSULT [id number] Notes Entered by: SUKUMAR PARKER 21 Nov 2016 1046 ------- ------- ------- ------- -- Med Renewal to [employer] /Kelvin/ YESSICA ROSARIO 11/[address] [place] [address] [employer] STACEYSofia [facility]S [facility] FAMRES Tm Blue) [address] [place] [address] [employer] Sofia [facility])([facility] [employer] Group[employer] Tm Blue) TELE CONSULT [id number] Notes Entered by: RADHIKA LORENZO 07 Dec 2016 1542 ------- ------- ------- ------- -- Express Scripts /Kelvin/ /c YESSICA Wen 12/[address] [place] [address])(S [facility] Tm Blue) [address] [place] [address])([facility] FAMRES Tm Blue) TELE CONSULT [id number] Notes Entered by: SHAYLA MALCOLM 07 Mar 2017 0806 ------- ------- ------- ------- -- Express script MIGUEL Rodriguez 03/[address] [place] [address])([facility] Tm Blue) [address] [place] [address])(Credit Review Analyst ecology) TELE CONSULT [id number] Notes Entered by: Damian RAMOS 28 Mar 2017 1636 ------- ------- ------- ------- -- Referra for breast MRI and bone density JOLANTA RAMOS 03/[address] [place] [address])(G alejo gy) [address] [place] [address])(Credit Review Analyst ecology) TELE CONSULT [id number] Notes Entered by: KARLENE BLAKE 03 Apr 2017 1719 ------- ------- ------- ------- -- results JAIR CHIN 04/03 Referred for Appointment [address] [place] [address])(G ybroderickcoconnor gy) [address] [place] [address])(Credit Review Analyst ecology) TELE CONSULT [id number] Notes Entered by: KARLENE BLAKE 01 May 2017 0758 ------- ------- ------- ------- -- results JAIR CHIN 05/01 Referred for Appointment [employer] [place]G ynecolo gy) [employer] [place]Sco tt [facility] FAMRES Tm Blue) OUTPATIENT [id number] cough continu e [id number] ALVERTODELL JESSEE MELISSA 05/06 Released w/o Limitations [employer] [place] Tm Blue) [employer] [place]Credit Review Analyst ecology) OUTPATIENT [id number] ww JAYNE BLAKE 10/01 Released w/o Limitations [employer] [place]G ynecolo gy) [facility] [employer] [place]Credit Review Analyst ecology) TELE CONSULT [id number] Notes Entered by: KARLENE BLAKE 14 Nov 2017 1722 ------- ------- ------- ------- -- SUSY Bhagat 11/14 Released w/o Limitations [employer] [place]G ynecolo gy) [facility] [employer] [place]Credit Review Analyst ecology) TELE CONSULT [id number] Notes Entered by: Damian RAMOS 04 Apr 2018 1604 ------- ------- ------- ------- -- JOLANTA Javed 04/04 Referred for Appointment [employer] [place]G ynecolo gy) [facility] [employer] [place]Credit Review Analyst ecology) TELE CONSULT [id number] Notes Entered by: Amber DA SILVA 23 Apr 2018 0825 ------- ------- ------- ------- -- Physici an request ed T-CON for Network Results -Radiol ogy 019 SUSY DINH 04/23 Referred for Appointment [employer] [place]G ynecolo gy) [address] [place] [address] Romain [facility])(Credit Review Analyst ecology) TELE CONSULT [id number] Notes Entered by: KARLENE BLAKE 28 Jul 2018 1305 ------- ------- ------- ------- -- Rf request SUSY MCNEAL 07/28 Referred for Appointment [address] [place] [address] Romain [facility])(G ynecoconnor gy) [address] [place] [address] [employer] [facility])(Sco tt [facility] FAMRES Tm Blue) OUTPATIENT [id number] discuss christy g BP medicat ion ZEKE FRAGA 09/19 Released w/o Limitations [address] [place] [address] [employer] B [facility]S cott [facility] FAMRES Tm Blue) [address] [place] [address] Romain [facility])(Sco tt [facility] FAMRES Tm Blue) TELE CONSULT [id number] Notes Entered by: PIPE PALUMBO 29 Sep 2018 0942 ------- ------- ------- ------- -- Low pulse concern s/Thais n/ MELYSSA Vasquez 09/29 Released to [facility] [address] [place] [address] [facility]S cott [facility] FAMRES Tm Blue) [address] [place] [address] Romain [facility])(Sco tt [facility] FAMRES Tm Blue) OUTPATIENT [id number] F/U ZEKE FRAGA 10/02 Released w/o Limitations [address] [place] [address] [employer] IBARRAB [facility]S cott [facility] FAMRES Tm Blue) [address] [place] [address] Romain [facility])(Credit Review Analyst ecology) OUTPATIENT [id number] 00 JAYNE BLAKE 10/13 Released w/o Limitations [address] [place] [address] [employer] [facility]G ynecolo gy) [address] [place] [address] [employer] B [facility]Sco tt [facility] FAMRES Tm Blue) OUTPATIENT [id number] discuss medicat ion BECCA ESPANA 10/30 Released w/o Limitations [address] [place] [address] Romain [facility])(S [facility] FAMRES Tm Blue) [address] [place] [address] Romain [facility])(Credit Review Analyst ecology) TELE CONSULT [id number] Notes Entered by: MADELIN DURAN 05 Nov 2018 0825 ------- ------- ------- ------- -- message for SUSY Abel 11/05 Medication Refill Forwarded [address] [place] [address] Romain [facility])(G alejo gy) [address] [place] [address] Romain [facility])(Ob/ Credit Review Analyst) TELE CONSULT [id number] Notes Entered by: KAYLA VALENTIN 20 Nov 2018 1342 ------- ------- ------- ------- -- Network results Radiolo gy 019 SUSY SIDDIQUI 11/20 Released to Self [facility] [address] [place] [address] Romain [facility])(O b/Credit Review Analyst) [address] [place] [address] [employer] [facility])(Sco tt [facility] Fam Res Tm Green) TELE CONSULT [id number] Notes Entered by: MERLNY SOLARES 28 Jan 2019 1021 ------- ------- ------- ------- -- Prescri ption Renewal Request HESHAM SULLIVAN 01/28 Medication Refill Forwarded [address] [place] [address] Romain [facility])([facility] Fam Res Tm Green) [address] [place] [address])(Sco tt [facility] FAMRES Tm Blue) OUTPATIENT [id number] f/u hyperal dostero ZEKE Degroot 02/12 Released w/o Limitations [address] [place] [address])([facility] FAMRES Tm Blue) [address] [place] [address])(Credit Review Analyst ecology) TELE CONSULT [id number] Notes Entered by: Damian RAMOS 28 Apr 2019 1143 ------- ------- ------- ------- -- breast MRI referra horace PRUITTJOLANTA HARDIN LAKEISHA 04/27 Referred for Appointment [address] [place] [address] Group [employer] [facility]G ynecolo gy) [address] [place] [address] [employer] [facility])(Ob/ Credit Review Analyst) TELE CONSULT [id number] Notes Entered by: Fay JACOBO 14 May 2019 1037 ------- ------- ------- ------- -- Network results Radiolo gy 020 SUSY MARES 05/13 Released to [facility] [employer] ([facility]O b/Credit Review Analyst) [address] [place] [address] [employer] [facility])(Credit Review Analyst ecology) TELE CONSULT [id number] Notes Entered by: Amber DA SILVA 20 Jan 2020 0943 ------- ------- ------- ------- -- Network results Radiolo gy 020 SANNA GOETZ 01/19 [facility] [employer] [facility]G ynecolo gy) [address] [place] [address] [employer] [facility] tt [facility] Blue) OUTPATIENT [id number] Virtual - Med Renewal ZEKE FRAGA 01/31 Released w/o Limitations [facility] [employer] [place] cott [facility] Blue) [facility] Medical [facility] [employer] [facility])(Credit Review Analyst ecology) OUTPATIENT [id number] WWE JAYNE BLAKE 06/22 Released w/o Limitations [facility] [employer] [place]G ynecolo gy) [facility] Medical [facility] [employer] [place]Ob/ Credit Review Analyst) TELE CONSULT [id number] REX BRIGHT 07/27 Other Not Elsewhere Classified [facility] [employer] ([facility]O b/Credit Review Analyst) [facility] Medical [facility] [employer] [place]Credit Review Analyst ecology) TELE CONSULT [id number] Notes Entered by: CONNOR WU 22 Nov 2020 1115 ------- ------- ------- ------- -- Med NIKOLAS Mims ALL 11/22 Other Not Elsewhere Classified [facility] Group [facility])(G ynecolo gy) [address] [place] [address])(Credit Review Analyst ecology) OUTPATIENT [id number] Lower Pelvic Pain JAYNE BLAKE 03/07 Released w/o Limitations [address] [place] [address])(G ynecolo gy) [address] [place] [address])(Credit Review Analyst ecology) TELE CONSULT [id number] Notes Entered by: KARLENE BLAKE 21 Mar 2021 0832 ------- ------- ------- ------- -- results DENISE LUJAN 03/21 Released to [facility] [address] [place] [address])(G ynecolo gy) [address] [place] [address])(Credit Review Analyst ecology) TELE CONSULT [id number] Notes Entered by: KARY PARSON 11 Apr 2021 1457 ------- ------- ------- ------- -- [place] into [facility] DENISE LUJAN 04/11 Released to Self Care [address] [place] [address])(G ynecolo gy) [address] [place] [address])(Credit Review Analyst ecology) TELE CONSULT [id number] Notes Entered by: DENISE LUJAN 09 Aug 2021 1441 ------- ------- ------- ------- -- appt DENISE LUJAN 08/09 Released to Self Care [address] [place] [address])(G ynecolo gy) [address] [place] [address])(Credit Review Analyst ecology) TELE CONSULT [id number] Notes Entered by: DENISE LUJAN 17 Aug 2021 1348 ------- ------- ------- ------- -- Appt DENISE LUJAN 08/17 Referred for Appointment [address] [place] [address])( alejo gy) [address] [place] [address])(Credit Review Analyst ecology) OUTPATIENT [id number] [facility] JAYNE BLAKE 09/04 Released w/o Limitations [address] [place] [address])( gunnarpatricia gy) [address] [place] [address])(Credit Review Analyst ecology) TELE CONSULT [id number] Notes Entered by: DENISE LUJAN 13 Sep 2021 1403 ------- ------- ------- ------- -- order for testing DENISE LUJAN 09/13 Referred for Appointment [address] [place] [address])( alejo gy) [address] [place] [address])(Credit Review Analyst ecology) TELE CONSULT [id number] Notes Entered by: DENISE LUJAN 15 Sep 2021 1412 ------- ------- ------- ------- -- breast testing DENISE LUJAN 09/15 Referred for Appointment [address] [place] [address])( alejo gy) [address] [place] [address])(Credit Review Analyst ecology) TELE CONSULT [id number] Notes Entered by: SUZAN RETANA 25 Dec 2021 1611 ------- ------- ------- ------- -- DENISE CORONEL 12/25 Referred for Appointment [address] [place] [address])(Valentnia dhillon gy) 0055C-375 [facility] [id number] Obesity , unspeci fied,Mario dy mass index (BMI) 30.0-30 .9, adult,A ge-rela wilver osteopo rosis without current patholo gical fractur e,Encou nter for gynecol ogical examina tion (genera l) (routin e) with abnorma l finding s,Other signs and symptom s in breast, Stress inconti nence (female ) (male) JAYNE KEARNEY 10/20 Discharge Disposition: Home or Self Care 0055C[facility] [facility] Between Visit [id number] 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 Procedure Procedure Type Code Date Perfomer Comments [facility] e Non-Physician Phone Call To Patient/Provider Brief (5-10min) Non-Physician Phone Call To Patient/Provider Brief (5-10min) [id number] 09/29/19 17 YESSICA ROSARIO [facility] Screening papanicolaou smear; obtaining, preparing and conveyance of cervical or vaginal smear to laboratory 01/19/20 15 JAYNE BLAKE [facility] Non-Physician Phone Call To Patient/Provider Brief (5-10min) Non-Physician Phone Call To Patient/Provider Brief (5-10min) [id number] 12/23/19 15 DAVE BERRIOS [facility] Non-Physician Phone Call To Patient/Provider Brief (5-10min) Non-Physician Phone Call To Patient/Provider Brief (5-10min) [id number] 12/14/19 15 ROSA MARTINEZ [facility] Non-Physician Phone Call To Patient/Provider Brief (5-10min) Non-Physician Phone Call To Patient/Provider Brief (5-10min) [id number] 11/05/19 15 GRACE AGUIAR [facility] Non-Physician Phone Call To Patient/Provider Brief (5-10min) Non-Physician Phone Call To Patient/Provider Brief (5-10min) [id number] 03/17/19 15 VIVI PALOMARESN [facility] Non-Physician Phone Call To Pt/Provider Intermed (11-20 min) Non-Physician Phone Call To Pt/Provider Intermed (11-20 min) [id number] 10/11/19 12 RICKIE LOCKHART [facility] Non-Physician Phone Call To Pt/Provider Intermed (11-20 min) Non-Physician Phone Call To Pt/Provider Intermed (11-20 min) [id number] 10/01/19 12 RICKIE LOCKHART [facility] Non-Physician Phone Call To Patient/Provider Brief (5-10min) Non-Physician Phone Call To Patient/Provider Brief (5-10min) [id number] 05/15/19 12 RICKIE LOCKHART [facility] Screening papanicolaou smear; obtaining, preparing and conveyance of cervical or vaginal smear to laboratory 04/06/19 12 VANCE KRISHNAMURTHY [facility] Non-Physician Phone Call To Patient/Provider Brief (5-10min) Non-Physician Phone Call To Patient/Provider Brief (5-10min) [id number] 08/23/19 10 RICKIE LOCKHART [facility] Non-Physician Phone Call To Patient/Provider Brief (5-10min) Non-Physician Phone Call To Patient/Provider Brief (5-10min) [id number] 01/20/20 09 NAIF SANDERS [facility] Screening papanicolaou smear; obtaining, preparing and conveyance of cervical or vaginal smear to laboratory 01/04/20 09 NAIF SANDERS [facility] Influenza Split Virus Vaccine Age 3+ Years Intramuscular 01/27/20 08 DARELL SNYDER [facility] Immunization Administration One Vaccine Immunization Administration One Vaccine [id number] 01/27/20 08 DARELL SNYDER [facility] Vaginal Pap Smear Vaginal Pap Smear 67920 07/09 08 VANCE CRAWFORD [facility] Screening papanicolaou smear; obtaining, preparing and conveyance of cervical or vaginal smear to laboratory 05/25/19 07 NORMA CISNEROS [facility] Cervical Pap Smear Cervical Pap Smear 69020 06 ROB RODRIGUEZ DoD TELE ASSESS & MGT SRV PROV QUAL NONPHYS HLTH CARE PRO TO EST PAT,PARENT,GUARD NOT ORIG REL ASSESS & MGT SRV PROV W/IN PREV 7 DAYS NOR LEAD ASSESS & MGT SRV/PX W/IN NXT 24 HR/SOON APT;5-10 MIN MED DIS 09/29/19 17 DoD SCREENING PAPANICOLAOU SMEAR; OBTAINING, PREPARING AND CONVEYANCE OF CERVICAL OR VAGINAL SMEAR TO LABORATORY 01/19/20 15 DoD TELE ASSESS & MGT SRV PROV QUAL NONPHYS HLTH CARE PRO TO EST PAT,PARENT,GUARD NOT ORIG REL ASSESS & MGT SRV PROV W/IN PREV 7 DAYS NOR LEAD ASSESS & MGT SRV/PX W/IN NXT 24 HR/SOON APT;5-10 MIN MED DIS 12/23/19 15 DoD TELE ASSESS & MGT SRV PROV QUAL NONPHYS HLTH CARE PRO TO EST PAT,PARENT,GUARD NOT ORIG REL ASSESS & MGT SRV PROV W/IN PREV 7 DAYS NOR LEAD ASSESS & MGT SRV/PX W/IN NXT 24 HR/SOON APT;5-10 MIN MED DIS 12/14/19 15 DoD TELE ASSESS & MGT SRV PROV QUAL NONPHYS HLTH CARE PRO TO EST PAT,PARENT,GUARD NOT ORIG REL ASSESS & MGT SRV PROV W/IN PREV 7 DAYS NOR LEAD ASSESS & MGT SRV/PX W/IN NXT 24 HR/SOON APT;5-10 MIN MED DIS 11/05/19 15 DoD TELE ASSESS & MGT SRV PROV QUAL NONPHYS HLTH CARE PRO TO EST PAT,PARENT,GUARD NOT ORIG REL ASSESS & MGT SRV PROV W/IN PREV 7 DAYS NOR LEAD ASSESS & MGT SRV/PX W/IN NXT 24 HR/SOON APT;5-10 MIN MED DIS 03/16/19 15 DoD TELE ASSESS & MGT SRV PROV QUAL NONPHYS HLTH CARE PRO TO EST PAT,PARENT,GUARD NOT ORIG REL ASSESS & MGT SRV PROV W/IN PREV 7 DAYS NOR LEAD ASSESS & MGT SRV/PX W/IN NXT 24H/SOON APT; 11-20 MIN MED DIS 10/11/19 12 DoD TELE ASSESS & MGT SRV PROV QUAL NONPHYS HLTH CARE PRO TO EST PAT,PARENT,GUARD NOT ORIG REL ASSESS & MGT SRV PROV W/IN PREV 7 DAYS NOR LEAD ASSESS & MGT SRV/PX W/IN NXT 24H/SOON APT; 11-20 MIN MED DIS 10/01/19 12 DoD TELE ASSESS & MGT SRV PROV QUAL NONPHYS HLTH CARE PRO TO EST PAT,PARENT,GUARD NOT ORIG REL ASSESS & MGT SRV PROV W/IN PREV 7 DAYS NOR LEAD ASSESS & MGT SRV/PX W/IN NXT 24 HR/SOON APT;5-10 MIN MED DIS 04/27/19 12 DoD SCREENING PAPANICOLAOU SMEAR; OBTAINING, PREPARING AND CONVEYANCE OF CERVICAL OR VAGINAL SMEAR TO LABORATORY 04/06/19 12 DoD TELE ASSESS & MGT SRV PROV QUAL NONPHYS HLTH CARE PRO TO EST PAT,PARENT,GUARD NOT ORIG REL ASSESS & MGT SRV PROV W/IN PREV 7 DAYS NOR LEAD ASSESS & MGT SRV/PX W/IN NXT 24 HR/SOON APT;5-10 MIN MED DIS 08/23/19 10 DoD TELE ASSESS & MGT SRV PROV QUAL NONPHYS HLTH CARE PRO TO EST PAT,PARENT,GUARD NOT ORIG REL ASSESS & MGT SRV PROV W/IN PREV 7 DAYS NOR LEAD ASSESS & MGT SRV/PX W/IN NXT 24 HR/SOON APT;5-10 MIN MED DIS 01/20/20 09 DoD INFLUENZA VIRUS VACCINE, TRIVALENT (IIV3), SPLIT VIRUS, 0.5 ML DOSAGE, FOR INTRAMUSCULAR USE 01/27/20 08 DoD CYTOPATHOLOGY, SMEARS, CERVICAL OR VAGINAL, UP TO THREE SMEARS; SCREENING BY ALTERATIONS WORKROOM CLERK UNDER PHYSICIAN SUPERVISION 07/10/19 08 DoD SCREENING PAPANICOLAOU SMEAR; OBTAINING, PREPARING AND CONVEYANCE OF CERVICAL OR VAGINAL SMEAR TO LABORATORY 05/25/19 07 DoD CYTOPATHOLOGY, SMEARS, CERVICAL OR VAGINAL, UP TO THREE SMEARS; SCREENING BY ALTERATIONS WORKROOM CLERK UNDER PHYSICIAN SUPERVISION 03/14/19 06 DoD left adrenal gland removed 07/25/19 24 00[facility]C-[facility] Hemorrhoidectomy 03/28/19 23 0055C-[facility] Bunionectomy R foot 02/25/19 21 0055C-375 [facility] Bilateral tubal Ligation 02/25/18 87 0055C-375 [facility] Cyst removal L breast 02/25/18 68 0055C-375 [facility] Social History Combined list of available smoking, tobacco, and other social history from Department of Defense and Veterans Affairs facilities. Social History Type Response Date Comment Sour e Sex Representation Female (finding) 04/19/2022 Unknown Organization This section is an empty social history section. [facility] Tobacco Frequent/Daily exposure to secondhand smoke in indoor/confined spaces No. Cigarette use: Former-cigarette user. Average PACKS per day: (10 cigarettes = 0.5 packs) 1. Total years of smoking cigarettes: 17. *Total pack years (*reqd for current/former users to complete the Rec. Packs/day times total years) 17. *Stopped cigarettes age (*required for former users to complete the Recommendation) 35 Years. Other Tobacco use: Never-other tobacco user (not cigarettes). [facility] Sexual Orientation Ambula tory Pharmacy Gender identity Ambulator y Pharmacy Assessment and Plan Combined list of future care activities from Department of Defense and Veterans Affairs facilities (e.g., assessment and plan notes, appointments, orders, and referrals). Additional future care activities may be listed in the Plan of Care section. 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 E ncounter for gynecological examination (general) (routine) with abnormal findings Over 50% of m inute visit spent face to face with patient on education, reviewing history, and developing plan of care. Continue monthly BSE and yearly well woman exams. Return to clinic in 1 year. Exercise: 30 minutes of moderate exercise 5 days a week including cardio and strength training is recommended for a healthy lifestyle. T his should be in addition to your normal daily work/routine. If you are trying to lose weight more exercise along with a healthy diet is recommended. Supplements/Vitamins: If you are not following, or able to follow a well-balanced diet indicated below due to personal or medical reasons, it is recommended you take a m ultivitamin. This is especially important if you are trying to get as w omen need additional folic acid before and during (400-1000 micrograms per day). Daily calcium intake should be around 1200 mg per day w hich is 120% of the recommended daily allowance if looking at food labels.? W e recommend V itamin D3 2,000-3,000 international units a day i f you have not already been identified with an insufficiency or deficiency. Nutrition: A healthy diet with protein, vegetables, fruits, grains, and dairy is advised. More information including example serving sizes can be found at h ttps://www.choosemyplate.gov/.& #160; T hese amounts are appropriate for individuals who get less than 30 minutes per day of moderate physical activity, beyond normal daily activities. Those who are more physically active may be able to consume more while staying within calorie needs. 2. O ther signs and symptoms in breast schedule MRI for after 2Nov24 Ordered: Referral Request 2.0 - DoD 3. F emale urinary stress incontinence to f/u with pelvic PT; discussed vag premarin may help with symptoms and enc to use regularly Ordered: conjugated estrogens topical(Premarin 0.625 mg/g vaginal cream with applicator), See instructions, Insert 0.5 grams vaginally daily for 2wks, then use 2x/wk on and , # 30 g, 5 total refill(s), Maintenance, Insert 0.5 grams vaginally daily for 2wks, then use 2x/wk on and ', Pharmacy: [facility] Referral Request 2.0 - DoD 4. O steoporosis restarted on reclast 04/20 5. O besity, unspecified increase exercise, decrease calories to decrease wt/BMI; advised healthy lifestyle, namely whole food plant based diet w/ regular exercise. Advise nutrition mendy/diary to track energy intake vs expenditure f/u prn PVUA. 6. B UT 30.0 to 30.9 Pt questions addressed and written discharge instructions were provided to the patient. [facility] Extracted from:Title: [employer] Author: JAYNE BLAKE NP Date: 10/12/22 1. E ncounter for gynecological examination (general) (routine) with abnormal findings Over 50% of m inute visit spent face to face with patient on education, reviewing history, and developing plan of care. Continue monthly BSE and yearly well woman exams. Return to clinic in 1 year. Exercise: 30 minutes of moderate exercise 5 days a week including cardio and strength training is recommended for a healthy lifestyle. T his should be in addition to your normal daily work/routine. If you are trying to lose weight more exercise along with a healthy diet is recommended. Supplements/Vitamins: If you are not following, or able to follow a well-balanced diet indicated below due to personal or medical reasons, it is recommended you take a m ultivitamin. This is especially important if you are trying to get as w omen need additional folic acid before and during (400-1000 micrograms per day). Daily calcium intake should be around 1200 mg per day w hich is 120% of the recommended daily allowance if looking at food labels.? W e recommend V itamin D3 2,000-3,000 international units a day i f you have not already been identified with an insufficiency or deficiency. Nutrition: A healthy diet with protein, vegetables, fruits, grains, and dairy is advised. More information including example serving sizes can be found at h ttps://www.Appetisemyplate.gov/.& #160; T hese amounts are appropriate for individuals who get less than 30 minutes per day of moderate physical activity, beyond normal daily activities. Those who are more physically active may be able to consume more while staying within calorie needs. 2. S tress incontinence (female) (male) reviewed options; referral for pelvic PT placed Ordered: Referral Request 2.0 3. A trophic vaginitis use premarin cream nightly for 2wks, then 2x/wk; place small amt post introitus daily 4. O ther signs and symptoms in breast MRI referral placed; [facility] week to scheduleafter Ordered: Referral Request 2.0 Orders: conjugated estrogens topical(Premarin 0.625 mg/g vaginal cream with applicator), 1 g, Vaginal, Mon/Thurs, place in vag nightly for 2wks, then use 2x/wk; apply small amt to post introitus daily, # 30 g, 6 total refill(s), Maintenance, 1 g Vaginal Mon/Thurs,Instr:place in vag nightly for 2wks, then use 2x/wk; apply small amt to post... [facility] 08/13/2024 [id number] Functional Status Combined list of recent functional and cognitive assessments recorded at Department of Defense and Veterans Affairs (VA).VA Functional [place] Measurement (FIM) Scale: 1 = Total Assistance (Subject = 0% +), 2 = Maximal Assistance (Subject = 25% +), 3 = Moderate Assistance (Subject = 50% +), 4 = Minimal Assistance (Subject = 75% +), 5 = Supervision, 6 = Modified [place] (Device), 7 = Complete [place] (Timely, Safely). Assessment Date/Time Source Assessment Type Assessment Skill Assessment Score Assessment Details No data available for this section
--- OUTSIDE RECORDS SUMMARY | 2024-08-13 12:01 | XMS_ITS | Clinical Summary ---
Author Organization [facility] Address [address] [place] [address] Care Team Providers Care Police Worker Name Role Phone London Tiwari Primary Care Provider [phone] Source Comments [facility],non-owned Affiliates and Associated Physician Practices is amultiple site organization consisting of ambulatory clinics and hospital sitesin [place], [place], [place] and [place]. This disclosure is being madepursuant to the Care Everywhere program and may not contain all information available regarding this patient. Last updated 17.[facility] Allergies No known active allergies Medications * Be aware that medications may not be up to date on this document. Alwaysverify current medications with the patient. Vitamin D3, cholecalciferol , 2000 UNITS tablet Take by mouth once daily Active fluticasone propionate (FLONASE) 50 MCG/ACT nasal spray [place] 1 (one) spray into each nostril as needed 05/08/19 18 Active Coenzyme Q10 (COQ10) 100 MG Take 100 (one hundred) mg by mouth once daily Active sertraline (ZOLOFT) 50 MG tablet Take 1 (one) tablet by mouth once daily Active Calcium-Magnesi um-Vitamin D (CITRACAL SLOW RELEASE) 600-40-500 MG-MG-UNIT TB24 Acti ve Cyanocobalamin (B-12) 1000 MCG Take 1 capsule by mouth once daily 02/01/20 21 Active atorvastatin (Lipitor) 40 MG tablet Take 1 (one) tablet by mouth at bedtime 90 tablet 3 05/30/19 24 Active Zoledronic Acid (RECLAST IV) Active Menaquinone-7 (VITAMIN K2 PO) Take 100 mcg by mouth once daily Active loratadine (Claritin) 10 MG tablet Take 1 (one) tablet by mouth once daily as needed for Runny Nose or Allergies Active acetaminophen (Tylenol) 325 MG tablet Take 2 (two) tablets by mouth every 6 hours Maximum allowable Acetaminophen amount = 4 Grams (4000 mg) / 24 hours. 07/27/19 24 Active Norvasc 5 MG tablet 07/28/19 24 Active estrogens, conjugated, (Premarin) 0.625 MG/GM vaginal cream Insert 1 g into the vagina 10/13/19 23 Active amLODIPine (Norvasc) 5 MG tablet Take 1 (one) tablet by mouth 02/03/20 24 025 Active atorvastatin (Lipitor) 40 MG tablet Take 1 (one) tablet by mouth 02/03/20 24 025 Active sertraline (Zoloft) 50 MG tablet Take 1 (one) tablet by mouth 02/03/20 24 025 Active levothyroxine (Synthroid) 112 MCG tabletIndicatio ns:Hypothyroidi sm, unspecified type Take 1 (one) tablet by mouth daily before breakfast 90 tablet 3 07/24/19 25 Active hydrocortisone (Cortef) 10 MG tablet Take 1 (one) tablet by mouth once daily Discuss this medicine with your electrical accessories ii assembler 90 tablet 3 02/26/19 25 025 Discontin ued(Tx Complete) levothyroxine (Synthroid) 88 MCG tabletIndicatio ns:Hypothyroidi sm, unspecified type Take 1 (one) tablet by mouth once daily Except every Saturday take 2 tabs 103 tablet 3 02/26/19 25 025 Discontin ued(Reord er) Active Problems Problem Noted Date Diagnosed Date 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 Easy mask ventilation. 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 Encounters Date Type Department Care Team Description 07/23/2024 Orders Only [facility] Endocr[facility] [address] [place] [address], [place] [address] Mohan Sanchez MD Hypothyroidism, unspecified type 07/16/2024 8:45 AM CDT - 07/16/2024 11:59 PM CDT Hospital Encounter [facility] OP DRAW [facility] [address] [place] [id number] Discharge Disposition: Home or Self Care 07/16/2024 Orders Only [facility] - Endocrinology [address] [place] [address], [place] [address] Mohan Sanchez MD Adrenal insufficiency after adrenalectomy (HCC) ; Other specified hypothyroidism 07/16/2024 Travel 05/29/2024 Orders Only [facility] - Endocrinology [address] [place] [address], [place] [address] Mohan Sanchez MD Adrenal insufficiency after adrenalectomy (HCC) from Last 3 Months Immunizations Immunization Administration Dates Next Due INFLUENZA VACCINE, TRIV. (AF LURIA, FLUZONE TRIVALENT; 6MO+) (IIV3) 01/09/2012 COVID PFIZER 12+YR 30MCG/0.3mL 11/22/2022 INFLUENZA VACCINE 11/25/2020, 8,12/11/2002,2000 INFLUENZA VACCINE, HIGH-DOSE , QUADR. (FLUZONE HIGH-DOSE QUADRIVALENT; 65Y+), 0.7 ML (HD-IIV4) 11/19/2018,11/05/2017 INFLUENZA VACCINE, QUADR. (A FLURIA, FLUZONE QUADRIVALENT; 6MO+) (IIV4) 11/25/2009,01/27/2008 MODERNA SARS-COV-2 COVID-19 VACCINE 0.25ML 06/13/2021 PNEUMOCOCCAL PPSV23 09/07/2016 Pneumococcal Pcv13 Conj 03/21/2015 TDAP (7yrs+) 02/20/2010 Td (Adult), 2 Lf Tetanus Tox oid, Adsorbed, Pf 12/11/2002 ZOSTER VACCINE, LIVE 03/20/2010 Family History Medical History Relation Name Comments Cardiomyopathy Brother Cancer Father Colon Lymphoma Father Cancer Maternal Grandmother breast Diabetes Maternal Grandmother Diabetes Maternal Uncle Kidney Disease Maternal Uncle Cancer Mother breast Diabetes Mother Hypertension Mother Cancer Paternal Aunt colon Ca Relation Name Status Comments Brother (Age 43) Father Maternal Grandmother Maternal Uncle Mother Paternal Aunt Social History Tobacco Use Types Packs/Day Years Used Date Smoking Tobacco: Former Cigarettes 1 18 1 - 11/25/1984 Smokeless Tobacco: Never Tobacco Cessation:Counseling Given: Not Answered Alcohol Use Standard Drinks/Week Comments Yes 23 (1 standard drink = 0.6 oz pu re alcohol) AUDIT-C Answer Date Recorded Q1: How often do you have a drink containing alcohol? Never 07/25/2023 Q2: How many drinks containi ng alcohol do you have on a typical day when you are drinking? Patient does not drink Q3: How often do you have si x or more drinks on one occasion? Never 07/25/2023 Overall Financial Resource Strain (CARDIA) Answe r Date Recorded How hard is it for you to pa y for the very basics like food, housing, medical care, and heating? Not hard at all 07/25/2023 PHQ-2 Answer Date Recorded PHQ2 TOTAL SCORE 0 05/29/2022 [facility] Occupat ional [facility] - Occupational Stress Questionnaire Answer Date Recorded Do you feel stress - tense, restless, nervous, or anxious, or unable to sleep at night because your mind is troubled all the time - these days? Not at all 07/25/2023 Hunger Vital Sign Answer Date Recorded Within the past 12 months, y ou worried that your food would run out before you got the money to buy more. Never true 05/30/20 24 Within the past 12 months, t he food you bought just didn't last and you didn't have money to get more. Never true 07/25/2023 PRAPARE - Transportation Answer Date Re corded In the past 12 months, has l ack of transportation kept you from medical appointments or from getting medications? No 06/27 In the past 12 months, has l ack of transportation kept you from meetings, work, or from getting things needed for daily living? No 07/25/2023 Housing Stability Vital Sign Answer Rudy e Recorded In the last 12 months, was t here a time when you were not able to pay the mortgage or rent on time? No 07/25/2023 In the last 12 months, how many places have you lived? 1 07/25/2023 In the last 12 months, was t here a time when you did not have a steady place to sleep or slept in a care home (including now)? No 07/25/2023 Comments No Sex and Gender Information Value Date Recorded Sex Assigned at Female 11/29/2023 3:05 PM CDT Legal Sex Female 5:24 PM SPLICER OPERATOR Gender Identity Female 11/29/2023 3:05 PM CDT Sexual Orientation Not on file Last Filed Vital Signs Vital Sign Reading Time Taken Comments Blood Pressure 136/80 02/27/2024 8:43 AM SPLICER OPERATOR Pulse 74 02/27/2024 8:43 AM SPLICER OPERATOR Temperature 36.7 C (98 F) 12/18/2023 8:37 AM CDT Respiratory Rate 20 12/18/2023 8:37 AM CDT Oxygen Saturation 93% 02/27/2024 8:43 AM SPLICER OPERATOR Inhaled Oxygen Concentration - - Weight 84.8 kg (187 lb) 02/27/2024 8:43 AM SPLICER OPERATOR Height 170.2 cm (5' 7) 02/27/2024 8:43 AM SPLICER OPERATOR Body Mass Index 29.29 02/27/2024 8:43 AM SPLICER OPERATOR Plan of Treatment Health Maintenance Due Date Last Done Comments COLOGUARD (AGES 45-75) - COLON CA SCREENING 1950 COLON MONITORING 1950 COLONOSCOPY - COLON CA SCREENING [address] CT COLONOGRAPHY - COLON CA SCREENING 1950 Colorectal Cancer Screening 1950 FIT - COLON CA SCREENING 1950 FLEX SIG - COLON CA SCREENING 1950 MEDICARE AWV 12 MONTHS 1950 HEPATITIS C SCREENING 02/07/1968 ZOSTER VACCINE (2 of 3) 05/15/2010 03/20/2010 DTAP/TDAP/TD VACCINES (2 - Td or Tdap) 02/21/2020 02/20/2010, 12/11/2002 COVID-19 VACCINE ( season) 2023 11/22/2022, 06/22/2022, 01/16/2022, Additional history exists DEPRESSION SCREENING 02/26/2024 05/29/2022 INFLUENZA VACCINE (Season Ended) 2024 12/17/2022, 12/06/2021, 11/25/2020, Additional history exists Respiratory Syncytial Virus (RSV) Vaccine Pt: or over 60 yrs (1 - 1-dose 75+ series) 2025 MAMMOGRAM 06/19/2025 06/20/2023, 05/27, 06/18/2022, Additional history exists SCREENING FOR DIABETES 04/29/2027 , 07/27/2023, 07/26/2023, Additional history exists PNEUMOCOCCAL VACCINE 50+ Completed 09/07/2016, 02/26 BONE DENSITY TESTING Completed 04/28/2024, 03/26/2023, 09/21/2021, Additional history exists HEPATITIS B VACCINE Aged Out No longe r eligible based on patient's age to complete this topic HIB VACCINE Aged Out No longer eligi ble based on patient's age to complete this topic HPV VACCINE Aged Out No longer eligi ble based on patient's age to complete this topic MENINGOCOCCAL (Group B) VACCINE SHARED DECISION-MAKING Aged Out No longer eligible based on patient's age to complete this topic MENINGOCOCCAL GROUPS A/C/Y/W VACCINE Aged Out No longer eligible based on patient's age to complete this topic Procedures Procedure Name Priority Date/Time Associated Diagnosis Comments TSH Routine 07/16/2024 9:04 AM CDT Adrenal insufficiency after adrenalectomy (HCC) Other specified hypothyroidism CORTISOL BLOOD AM Routine 07/16/2024 9:0 4 AM CDT Adrenal insufficiency after adrenalectomy (HCC) Other specified hypothyroidism DEXA BONE DENSITY AXIAL SKELETON Routine 04/28/2024 8:50 AM SPLICER OPERATOR Age-related osteoporosis without current pathological fracture COMPREHENSIVE METABOLIC PANEL Routine 04/28/2024 8:07 AM SPLICER OPERATOR Adrenal insufficiency from Last 3 Months or Most Recently Relevant to Health Maintenance Results * TSH (07/16/2024 9:04 AM CDT) TSH 3.921 0.350 - 4.940 uIU/mL 07/16/2024 10:44 AM CDT [facility] Blood BLOOD SPECIMEN / Unknown Lab Venipuncture / Unknown 07/16/2024 9:04 AM CDT 07/16/2024 9:53 AM CDT us Mohan Sanchez MD LAB - CHEMISTRY ORDERABLES Final Result Performing Organization Address [facility]/ZIP Co de Phone Number [address] [address], [facility] [phone] * CORTISOL BLOOD AM (07/16/2024 9:04 AM CDT) Cortisol AM 10.6 3.7 - 19.4 ug/dL 07/16/2024 10:44 AM CDT [facility] Blood BLOOD SPECIMEN / Unknown Lab Venipuncture / Unknown 07/16/2024 9:04 AM CDT 07/16/2024 9:53 AM CDT Narrative [facility] - 07/16/2024 10:44 AM CDT Normal cortisol levels are generally highest in the morning hours and lowest from late evening through the complex commercial litigation paralegal hours (8 PM to 4 AM). The PM measurements of cortisol run approximately one-half to one-third of the AM values. us Mohan Sanchez MD LAB - CHEMISTRY ORDERABLES Final Result Performing Organization Address [facility]/ZIP Co de Phone Number [address] [address], [place] [phone] * BONE DENSITY AXIAL SKELETON(1OR MORE SITES)[id number] (04/28/2024 8:50 AM SPLICER OPERATOR) Anatomical Region Laterality Modality Other 04/28/2024 8:56 AM SPLICER OPERATOR Narrative 04/28/2024 9:13 AM SPLICER OPERATOR PROCEDURE: DEXA BONE DENSITY AXIAL SKELETON DATE/TIME OF EXAM: 04/28/2024 8:50 AM CLINICAL INFORMATION: None relevant/not provided if blank. Indication: M81.0: Age-related osteoporosis without current pathological fracture COMPARISON: DEXA scan from 03/26/2023 LUMBAR SPINE (L1-L4): Bone mineral density (g/cm2): 1.007 Current T-score: -0.4 LEFT FEMORAL NECK: Bone mineral density (g/cm2): 0.681 Current T-score: -1.5 FRAX not reported because: Treated for osteoporosis BONE DENSITY ASSESSMENT: WHO Category: Osteopenia. Please see the PACS images for additional details. World Health Organization definitions of standard deviations relative to the mean T-score: Normal bone density = -1.0 and above Osteopenia = between -1.0 and -2.5 Osteoporosis = -2.5 and below > Dictated by Casimiro Andrew MD (Tipple Worker) 04/28/2024 8:56 AM IYovany DO have personally reviewed and interpreted this examination/study. > Interpreting Provider: Yovany Coelho DO on 04/28/2024 9:13 AM Procedure Note Yovany Coelho DO - 04/28/2024 PROCEDURE: DEXA BONE DENSITY AXIAL SKELETON DATE/TIME OF EXAM: 04/28/2024 8:50 AM CLINICAL INFORMATION: None relevant/not provided if blank. Indication: M81.0: Age-related osteoporosis without current pathological fracture COMPARISON: DEXA scan from 03/26/2023 LUMBAR SPINE (L1-L4): Bone mineral density (g/cm2): 1.007 Current T-score: -0.4 LEFT FEMORAL NECK: Bone mineral density (g/cm2): 0.681 Current T-score: -1.5 FRAX not reported because: Treated for osteoporosis BONE DENSITY ASSESSMENT: WHO Category: Osteopenia. Please see the PACS images for additional details. World Health Organization definitions of standard deviations relative to the mean T-score: Normal bone density = -1.0 and above Osteopenia = between -1.0 and -2.5 Osteoporosis = -2.5 and below > Dictated by Casimiro Andrew MD (Tipple Worker) 04/28/2024 8:56 AM I, Yovany Coelho DO have personally reviewed and interpreted this examination/study. > Interpreting Provider: Yovany Coelho DO on 04/28/2024 9:13 AM Mohan Sanchez MD DEXA ORDERABLES Final Result * (ABNORMAL) COMPREHENSIVE METABOLIC PANEL (04/28/2024 8:07 AM SPLICER OPERATOR) BUN 11 7 - 26 mg/dL 04/28/2024 9:49 AM [facility] Creatinine 0.83 0.56 - 0.96 mg/dL 04/28/2024 9:49 AM [facility] Sodium 139 136 - 145 mmol/L 04/28/2024 9:49 AM [facility] Potassium 4.5 3.5 - 4.5 mmol/L 04/28/2024 9:49 AM [facility] Chloride 105 98 - 107 mmol/L 04/28/2024 9:49 AM [facility] CO2 22 22 - 29 mmol/L 04/28/2024 9:49 AM [facility] Glucose 99 70 - 99 mg/dL 04/28/2024 9:49 AM [facility] Calcium 9.5 8.4 - 10.2 mg/dL 04/28/2024 9:49 AM [facility] Protein Total 7.5 6.0 - 8.3 g/dL 04/28/2024 9:49 AM [facility] Albumin 4.2 3.4 - 5.0 g/dL 04/28/2024 9:49 AM [facility] Bilirubin Total 0.8 0.2 - 1.2 mg/dL 04/28/2024 9:49 AM [facility] Alkaline Phosphatase 120 40 - 150 U/L 04/28/2024 9:49 AM [facility] ALT 23 5 - 55 U/L 04/28/2024 9:49 AM [facility] AST 24 5 - 34 U/L 04/28/2024 9:49 AM [facility] Anion Gap 12 6 - 16 04/28/2024 9:49 AM [facility] BUN/Creatinine Ratio 13 7 - 23 04/28/2024 9:49 AM [facility] Osmolality Calculated 287 275 - 295 mOsm/kg 04/28/2024 9:49 AM [facility] Albumin/Globulin Ratio 1.3 1.1 - 2.3 04/28/2024 9:49 AM [facility] eGFR by CKD-EPI 74(L) >=90 mL/min/1.7 3 m2 04/28/2024 9:49 AM [facility] Blood BLOOD SPECIMEN / Unknown Lab Venipuncture / Unknown 04/28/2024 8:07 AM [facility] 04/28/2024 9:05 AM [facility] Mohan Sanchez MD LAB - CHEMISTRY ORDERABLES Final Result Performing Organization Address [facility]/State/ZIP Co de Phone Number [facility] [address] [place] [address] [phone] from Last 3 Months or Most Recently Relevant to Health Maintenance Insurance MEDICARE Advance Directives * Full Code (Latest Code Status on File) Date Activated Date Inactivated Comments 07/25/2023 3:29 PM 07/27/2023 1:43 PM Care Teams Police Worker Relationship Specialty Start Date End Date London Tiwari DO [address] [place] [address] PCP - General Internal Medicine 12/13/23
--- OUTSIDE RECORDS SUMMARY | 2024-08-13 12:01 | XMS_ITS | Encounter Summary ---
Author Organization [facility] Health Address [address] [place] [address] Care Team Providers Care Surgical Physician Assistant Name Role Phone Freeman, Bill [facility] Primary Care Provider [phone] Primary Care Prov ider Keyur Can PA-C Primary Care Provide r London Tiwari DO Primary Care Provider [phone] Reason for Visit * Reason Onset Date Comments MEDICATION REFILL 08/21/2017 Encounter Details Date Type Department Care Team (Late st Contact Info) Description 08/21/2017 Refill [facility] [address] [place] [address] Antonio Horner MD [address] [place] [address] MEDICATION REFILL Social History Tobacco Use Types Packs/Day Years Used Date Smoking Tobacco: Former Cigarettes Q uit: 11/25/1984 Smokeless Tobacco: Never Alcohol Use Standard Drinks/Week Comments Yes 1.7 (1 standard drink = 0.6 oz p ure alcohol) Comments No Sex and Gender Information Value Date Recorded Sex Assigned at Female 11/29/2023 3:05 PM CDT Legal Sex Female 5:24 PM TICKET SALES 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 Gender Identity Female 11/29/2023 3:05 PM CDT Sexual Orientation Not on file documented as of this encounter Miscellaneous Notes * Telephone Encounter - Antonio Horner MD - 08/23/2017 9:36 AM CDT There is no documentation that dr evans was following thyroid * Telephone Encounter - Kevin Clark - 08/21/2017 4:28 PM CDT PATEL 07/15/2017 NOV 07/13/2018 documented in this encounter Plan of Treatment Not on file documented as of this encounter Visit Diagnoses Not on filedocumented in this encounter Care Teams Surgical Physician Assistant Relationship Specialty Start Date End Date [place], [place] PCP - General 07/15/17 04/17/[address] [facility] [address] [place] [address] PCP - General 04/18/18 04/03/21 Keyur Can PA-C [address] [place] [address] PCP - General 04/04/21 12/12/23 London Tiwari DO [address] [place] [address] PCP - General Internal Medicine 12/13/23 documented as of this encounter
[2024-08-13 12:15] LABS: Free T4 Free Thyroxine 1.22 ng/dL (0.78-2.19)
== END 2024-08-13 11:10 | disposition home or self-care (01) ==
PROVIDERS: PCP Internal Medicine; Visit Provider Internal Medicine
DX: E03.9 Hypothyroidism, unspecified (principal); R53.83 Other fatigue; I10 Essential (primary) hypertension; E78.00 Pure hypercholesterolemia, unspecified
CPT/HCPCS: 36415; 80053; 84439; 84443; 85025

== ENCOUNTER 2024-09-08 11:33 | Outpatient (CLI) | payer MEDICARE, OTHER, SELFPAY ==
--- OUTSIDE RECORDS SUMMARY | 2024-09-08 11:44 | XMS_ITS | Referral Summary ---
Author Organization [facility] Medical Office Building [address] [place] [id number] Care Team Providers Care Air Conditioning Equipment Mechanic Name Role Phone London Tiwari DO Primary Care Provider [phone] Encounters Date Type Department Care Team Description 07/30/2024 4:03 PM CDT - 07/30/2024 11:59 PM CDT Hospital Encounter [facility] [address] [facility] [address] [place] [id number] Screening mammogram, encounter for Discharge Disposition: [...] Immunization Administration Dates Next Due COVID-19 mRNA (Global Filmdemic) 0.3 m L (30 mcg) vaccine (12 years and up) 11/22/2022 Influenza, Quad, Adjuvantate d, Intramuscular 11/25/2020 Influenza, Quadrivalent, Hig h Dose, Preservative Free, Intrr 12/04/2019 Influenza, Quadrivalent, Spl it, Intramuscular 11/20/2016,11/10/2015,11/21/2014,11/25,01/27/2008 Influenza, Trivalent, High D ose, Split, Preservative Free, Intramuscular 11/19/2018,11/19/2018,11/05/2017,11/23 Influenza, Trivalent, IM (MDV) 11/15/2014,2011 Influenza, Unspecified 11/05/2017,12/11/2002,10/2000 Moderna Sars-cov-2 Bivalent Vaccine 50 Mcg/0.5 mL (12+ YRS)-Blue/H[place]rickson 01/16/2022 Zazum Sars-Cov-2 Bivalent V accination (12+ YRS) 06/22/2022 Pneumococcal Conjugate PCV 13 03/21/2015 Pneumococcal Polysaccharide PPV23 09/07/2016 Td, adsorbed 12/11/2002 Tdap 03/15/2020,02/20/2010 ZOSTER LIVE 03/20/2010 ZOSTER Recombinant 01/27/2020,11/09/2019 Social History Tobacco Use Types Packs/Day Years Used Date Smoking Tobacco: Former Comments No Sex and Gender Information Value Date Recorded Sex Assigned at Not on file Legal Sex Female 9:18 AM INTERIOR DESIGN INSTRUCTOR Gender Identity Female 07/30/2020 6:57 PM CDT [...] Result from Last 3 Months Insurance [employer]ICARE [facility] [employer] [facility] Elias Borges [employer] [facility] Care Teams Air Conditioning Equipment Mechanic Relationship Specialty Start Date End Date London Tiwari DO [address] [facility] [address] [place], [place] [id number] PCP - General Internal Medicine 11/14/23
--- OUTSIDE RECORDS SUMMARY | 2024-09-08 11:44 | XMS_ITS | Continuity of Care Document ---
Author Name [facility] Organization [facility] Care Team Providers Care Regional Commercial Sales Manager Name Role Phone [facility] Unavailable Unavailable Problems Combined list of problems from Department of Defense and Veterans Affairs facilities. It does not include entries that were removed or entered in error. Problem Status Onset Date Problem Type Date of Resolution Comments Source Menopausal osteoporosis Active 4 Diagnosis 5C- [facility] Osteoporosis Active 4 Diagnosis 5C- th [facility] Obesity, unspecified Active 4 Diagnosis 5C- th [facility] BMI 30.0 to 30.9 Active 4 Diagnosis 5C- th [facility] Encounter for gynecological examination (general) (routine) with abnormal findings Active 4 Diagnosis - th [facility] Other signs and symptoms in breast Active 4 Diagnosis 5C- th [facility] Female urinary stress incontinence Active 4 Diagnosis - th [facility] Essential hypertension Active 5 Condition - th [facility] Essential (primary) hypertension Active 5 Condition DoD Atrophic vaginitis1 Active Condition Outside Source Comment: Refill medication. - [facility] Benign neoplasm of adrenal gland Active Condition 5C- th [facility] Depressive disorder2 Active Condition Outside Source Comment: Refill medication - patient on Zoloft 100mg po qd not paroxetine. No SI or HI. Patient reports that the medication works well. 0055C- th [facility] Dyslipidemia Active Condition 0055C- [facility] Esophageal reflux finding3 Active Condition Outside Source Comment: Refill ranitidine. 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 0055C-375 th [facility] Restless legs Active Condition 0055C-37 5 th [facility] Single acquired kidney cyst Active Condition 0055C-375 th [facility] Subclinical hypothyroidism Active Condition 0055C-375 th [facility] Benign neoplasm [...] ESOPHAGEAL REFLUX Active Condition Re fill ranitidine. DoD NORMAL ROUTINE HISTORY AND PHYSICAL ADULT (18-65) Inactive Condition Normal examination. Patient told to stop by the [facility] lab to have these drawn. DoD visit [...] told to call for an appointment at [facility] radiology department. MOP with breast CA at [...] PAP performed DoD anxiety Active Condition DoD Medications Combined list of outpatient medications from [...] Soft Stop Discont inued 10/12/20222022 0055C-3 [facility] Albuterol (Eqv-ProAir HFA) 90 mcg/inh inhalation aerosol 8 unknown unit, 0 Refill(s ), 0 total refill(s ), Soft Stop Ordered 2023 0055C-3 [facility] albuterol 90 mcg inhaler [8.5g] See Instruct ions, # 8 g, 1 total refill(s ), Hard Stop Complet ed 10/02/2023 4 2023 8.5 Ambulat ory Pharmac y amLODIPine 5 mg oral tablet 90 tab(s), 0 total refill(s ), Soft Stop Discont inued 10/12/20222022 0055C-3 [facility] amLODIPine 5 mg oral tablet 90 tab(s), 0 Refill(s ), 0 total refill(s ), Soft Stop Discont inued 10/21/20232023 0055C-3 [facility] amLODIPine 5 mg tablet 5 mg, Oral, [...] BESYLATE (amlodipine besylate), 10 MG, TABLET, ORAL, [facility], 1000 ea. BOTTLE Active [id number] 4 2023 90 Pharmac y Data Transac tion Service Facilit y atorvastati n 40 mg oral tablet 90 tab(s), 0 total refill(s ), Soft Stop Discont inued 10/12/20222022 0055C[facility]3 [facility] atorvastati n 40 mg oral tablet 90 tab(s), 0 Refill(s ), 0 total refill(s ), Soft Stop Discont inued 10/21/20232023 0055C-3 [facility] atorvastati n 40 mg tablet See [...] by mouth) Ordered 2022 100.0 0055C-3 [facility] CoQ10 Oral, Daily, 0 total refill(s ), Maintena nce Oral (given by mouth) Discont inued 10/21/20232023 0055C-3 [facility] fluticasone 50 mcg/inh nasal spray 16 [...] [facility], 100 ea. BOTTLE Cancele d [id number] : 2023 0 Pharmac y Data Transac tion Service Facilit y HYDROCORTIS ONE (hydrocorti sone), 20 MG, TABLET, ORAL, [facility], 100 ea. BOTTLE Cancele d [id number] : 2023 0 Pharmac y Data Transac [...] Soft Stop Discont inued 10/21/20232023 0055C-3 [facility] hydrocortis one 5 mg oral tablet [...] Soft Stop Discont inued 10/21/20232023 0055C-3 [facility] lisinopril 30 mg oral tablet 90 tab(s), 0 total refill(s ), Soft Stop Discont inued 10/12/20222022 0055C-3 [facility] lisinopril 30 mg oral tablet 90 tab(s), 0 Refill(s ), 0 total refill(s ), Soft Stop Discont inued 10/21/20232023 0055C[facility]3 [facility] lisinopril 30 mg tablet 30 [...] Soft Stop Complet ed 10/21/20232023 0055C[facility]3 [facility] loratadine 10 mg oral tablet TAKE ONE TABLET BY MOUTH EVERY DAY FOR ALLERGY, # 90 EA, 2 total refill(s ), Acute Complet ed 09/04/2022 3 2022 90.0 Ambulat ory Pharmac y neomycin/po lymyxin B/dexametha sone 3.5 mg-10,000 units-1 mg/g ophthalmic ointment 3 g, 0 Refill(s ), 0 total refill(s ), Soft Stop Discont inued 10/21/20232023 0055C-[address] [place] [address] Romain oxyCODONE 5 mg oral tablet 12 EA, 0 Refill(s ), TAKE 1 TABLET BY MOUTH EVERY 6 HOURS NEEDED, 0 total refill(s ), Soft Stop Discont inued 10/21/20232023 0055C-3 [facility] OXYCODONE HCL (OXYCODONE HCL), 5MG, TABLET, ORAL, [facility], 100 ea. BOTTLE Active [id number] 4 2023 12 Pharmac y Data Transac [...] # 30 g, 5 total refill(s ), [facility] Ordered 4 2023 30.0 0055C-3 75th PATRICIA [place]os Premarin 0.625 mg/g vaginal cream with applicator 1 g, Vaginal, Sat/ s, place in vag nightly for 2wks, then use 2x/wk; apply small amt to post introitu s daily, # 30 g, 6 total refill(s ), [facility], Pharmacy : [facility] Vagina l (in the vagina ) Discont inued 10/21/2023 4 2023 30.0 0055C-3 [facility] PATRICIA Hoyos sertraline 50 mg [...] Soft Stop Discont inued 10/12/20222022 0055C-[address] [facility] Synthroid 88 mcg oral tablet 90 tab(s), 0 Refill(s ), 0 total refill(s ), Soft Stop Discont inued 10/21/20232023 0055C-3 75th [facility] Vitamin B12 1000 mcg oral tablet tab(s), Oral, Daily, 0 total refill(s ), Maintena nce Oral (given by mouth) Ordered 2022 0055C-3 75th [facility] Vitamin D3 50 mcg (2000 intl units) oral tablet tab(s), Oral, Daily, 0 total refill(s ), Maintena nce Oral (given by mouth) Ordered 2022 00[address]C-[address] [facility] zoledronic acid/mannit ol (eqv-Reclas t) 5 mg/100 mL infusion 5 mg, IV Drip (Intrave nous), Once, 0 total refill(s ), Maintena nce Intrav enous Drip Ordered 2023 0055C-3 [facility] Allergies, Adverse Reactions, Alerts Combined list of allergies from Department of Defense and Veterans Affairs facilities. It does not include entries that were removed or entered in error. Substance Category Reaction Severity Reaction type Status Date Reported Comments Source NO OUTPUT FOR NCID [id number] Drug allergy (disorder) active 06/27/2007 [employer] Romain MARTIN ([facility]) Immunizations Combined list of available immunizations from the Department of Defense and Veterans Affairs facilities. Immunization Series Date Given Administered By Site Reaction Lot Number CVX Code Drug Cash Person Status Comments Source RSV vaccine preF3, recombinant 2022 DARLENERBRUNN ER 303 complet ed Result Comment: Route: Unknown Manufactu rer: OT (SKB) 0055C-[address] [place] [address] Romain COVID-19 vaccine(Pfize r Bival 12yr+) 2022 DARLENERBRUNN ER 300 complet ed Result Comment: Route: Unknown Manufactu rer: OT (PFR) 0055C-[address] [place] [address] SARS-CoV-2 (COVID-19) mRNA-Bivalent 2021 DARLENERBRUNN ER 229 complet ed Result Comment: Route: Unknown Manufactu rer: OT (MOD) 5C-[address] [place] [address] Romain COVID Vaccine Moderna 2020 BROCKALBAUGH 207 complet ed Result Comment: Unit: Unknown Manufactu rer: () 0055C-[address] [place] [address] COVID-19, mRNA, LNP-S, PF, 100 mcg or 50 mcg dose 2020 ALUL, () Not Given COVID-19, mRNA, LNP-S, PF, 100 mcg or 50 mcg dose DoD influenza virus vaccine, unspecified 2020 DARLENERBRUNN ER 88 complet ed Result Comment: Route: Unknown Manufactu rer: OT (unk) 0055C-[address] [place] [address] influenza virus vaccine, inactivated 2020 BROCKALBAUGH 88 complet ed Result Comment: Unit: Unknown Manufactu rer: () 0055C-[address] [place] [address] Influenza vaccine, quadrivalent, adjuvanted 2020 ALUL, () Not Given Influenza vaccine, quadrival ent, adjuvante d DoD tetanus, diphtheria, acellular pertu is 2020 BROCKALBAUGH 115 complet ed Result Comment: Unit: Unknown Manufactu rer: () 0055C-[address] [place] [address] Romain Tdap 2020 ALUL, () Not Given Tdap DoD zoster vaccine, inactivated 2019 BROCKALBAUGH 187 complet ed Result Comment: Unit: Unknown Manufactu rer: () 0055C-[address] [place] [address] zoster recombinant 2019 ALUL, () Not Given zoster recombina nt DoD zoster vaccine, inactivated 2019 BROCKALBAKENROY 187 complet ed Result Comment: Unit: Unknown Manufactu rer: () 0055C-3 [facility] zoster recombinant 2019 ALUL, () Not Given zoster recombina nt DoD zoster vaccine, inactivated 2019 SREEDHARALBAKENROY 187 complet ed Result Comment: Unit: Unknown Manufactu rer: () 0055C-3 [facility] zoster recombinant 2019 ALUL, () Not Given zoster recombina nt DoD influenza, seasonal,high dose-pf 2018 RYLEECKALBAKENROY 135 complet ed Result Comment: Unit: Unknown Manufactu rer: () 0055C-3 [facility] Influenza, high dose seasonal 2018 ALUL, () Not Given Influenza , high dose seasonal DoD influenza, seasonal,high dose-pf 2017 135 sanofi pasteur complet ed influenza , seasonal, high dose-pf 11/05/17 Given Ambulat ory Pharmac y zoster vaccine, inactivated 2017 SREEDHARALBAKENROY 187 complet ed Result Comment: Unit: Unknown Manufactu rer: () 0055C-3 [facility] zoster recombinant 2017 REANNA, () Not Given zoster recombina nt DoD pneumococcal polysaccharid e, 23 valent 2016 TRANSCR IBED 33 complet ed pneumococ josefina polysacch aride, 23 valent 09/07/16 Given Ambulat ory Pharmac y pneumococcal polysaccharid e vaccine, 23 valent 1 2016 Unknown, Provider 33 Transcribed (TRS) complet ed pneumococ josefina polysacch aride vaccine, 23 valent DoD influenza, seasonal,high dose-pf 2015 BRONEREIDAALBAKENROY 135 complet ed Result Comment: Unit: Unknown Manufactu rer: () 0055C-3 [facility] Influenza, high dose seasonal 2015 MARELY FORTE () Not Given Influenza , high dose seasonal DoD pneumococcal 13-valent conjugate (PCV13) 2015 zzLyuli mcknight Arm [id number] [employer] complet ed pneumococ josefina 13-valent conjugate (PCV13) 03/21/15 Given Ambulat ory Pharmac y pneumococcal conjugate vaccine, 13 valent 1 2015 Unknown, Provider [id number] WyElijah (WAL) complet ed pneumococ josefina conjugate vaccine, 13 valent DoD influenza, injectable, quadrivalent- pf 2014 150 sanofi pasteur complet ed influenza , injectabl e, quadrival ent-pf 11/22/14 Given Ambulat ory Pharmac y influenza, injectable, quadrivalent- pf 2013 CA 150 complet ed Result Comment: Unit: Unknown Manufactu rer: () 0055C-3 [facility] [place] influenza, injectable, quadrivalent, preservative free 2013 SURESH FORTE () Not Given influenza , injectabl e, quadrival ent, preservat lizzy free DoD influenza, seasonal, injectable 2011 TRANSCR IBED 141 complet ed influenza , seasonal, injectabl e 01/09/12 Given Ambulat ory Pharmac y Influenza, seasonal, injectable 1 2011 Unknown, Provider 141 Transcribed (TRS) complet ed Influenza , seasonal, injectabl e DoD zoster vaccine live 2010 zzLef t Arm [id number] [employer] complet ed zoster vaccine live 03/20/10 [...] 1 2007 Unknown, Provider [id number] Dawit BeltonKline (SKB) complet ed influenza virus vaccine, split virus (incl. purified surface antigen)- retired CODE DoD influenza virus vaccine, whole virus 2002 zzLef t Arm [id number] 16 sanofi pasteur complet ed influenza virus vaccine, whole virus 12/11/02 Given Ambulat ory Pharmac y tetanus-dipht h toxoids (Td) adult/adol 2002 zzLef t Arm [id number] 09 sanofi pasteur complet ed tetanus-d iphth toxoids (Td) adult/ado l 12/11/02 Given Ambulat ory Pharmac y tetanus and diphtheria toxoids, adsorbed, preservative free, for adult use (2 Lf of tetanus toxoid and 2 Lf of diphtheria toxoid) 1 2002 Unknown, Provider [id number] 09 Sanofi Pasteur ([facility]) complet ed tetanus and diphtheri a toxoids, adsorbed, preservat lizzy free, for adult use (2 Lf of tetanus toxoid and 2 Lf of diphtheri a toxoid) DoD influenza virus vaccine, whole virus 1 2002 Unknown, Provider [id number] 16 Sanofi Pasteur ([facility]) complet ed influenza virus vaccine, whole virus DoD influenza virus vaccine, whole virus 2000 zzLef t Arm [id number] 16 sanofi pasteur complet ed influenza virus vaccine, whole virus 01/03/01 Given Ambulat ory Pharmac y influenza virus vaccine, whole virus 1 2000 Unknown, Provider [id number] 16 Sanofi Pasteur ([facility]) complet ed influenza virus vaccine, whole virus [facility] Vital Signs Combined list of inpatient and outpatient Vital Signs from Department of Defense and Veterans Affairs, ranging from 12 months to all on record, depending upon the facility. Vital Sign Value Date Comments Source Respiratory Rate 18 br/min 10/21/2023 19:14:00 00[facility] Peripheral Pulse Rate 73 bpm 10/21/2023 19:14:00 0055C[facility] Temperature Oral 37.0 Awa 10/21/2023 19:14:00 0055C-[facility] Systolic Blood Pressure 130 mm[Hg] 10/21/2023 19:14:00 [...] ADM Date DC Date Status Disposition Source [address] [place] [address] Romain MARTIN ([facility])(Sco tt [facility]) TELE CONSULT [id number] med request CAPRICE TALBERT 08/[address] [place] [address] oRmain MARTIN [facility])(S [facility] Blue) [address] [place] [address] Romain MARTIN [facility])(Sco tt [facility]) OUTPATIENT [id number] full physica l--NO PAP SMEAR CAPRICE TALBERT 03/01 Released w/o Limitations [address] [place] [address] Romain MARTIN [facility])(S [facility] Blue) [address] [place] [address] Romain MARTIN [facility])(Sco tt [facility] FAM[facility] Tm Blue) OUTPATIENT [id number] repeat pap ROB RODRIGUEZ R 03/14 Released w/o Limitations [address] [place] [address] Romain IBARRAB ([facility])(S cott [facility] Tm Blue) [address] [place] [address] Romain IBARRAB ([facility])(Sco tt [facility] Tm Blue) OUTPATIENT [id number] f/u anti depress ant meds YAMMARIO-MALORIE Mckeon CAPRICE 03/19 Released w/o Limitations [address] [place] [address] Romain IBARRAB ([facility])(S cott OF FAMRES Tm Blue) [address] [place] [address] Romain IBARRAB ([facility])(Sco tt [facility] Tm Blue) TELE CONSULT [id number] med refill EFREM MORENO 06/[address] [place] [address] Romain MARTIN ([facility])(S cott [facility] Tm Blue) [address] [place] [address] Romain IBARRAB ([facility])(Sco tt [facility] Tm Blue) TELE CONSULT [id number] med refill OLESYA ROSARIO 11/[address] [place] [address] Romain MARTIN [facility])(S cott [facility] Tm Blue) [address] [place] [address] Romain IBARRAB ([facility])(Sco tt [facility] Tm Blue) OUTPATIENT [id number] repeat pap/dys plasia NORMA CISNEROS 05/24 Released w/o Limitations [address] [place] [address] Romain IBARRAB ([facility])(S cott [facility] Tm Blue) [address] [place] [address] Romain IBARRAB ([facility])(Sco tt [facility] Fam Res Tm Green) OUTPATIENT [id number] WELL WOMAN EXAM WITH PAP MAGNOLIA CRAWFORD 07/09 Released w/o Limitations [address] [place] [address] Romain IBARRAB ([facility])(S cott [facility] Fam Res Tm Green) [address] [place] [address] Romain IBARRAB ([facility])(Sco tt [facility] Fam Res Tm Green) TELE CONSULT [id number] MAGNOLIA Fortune 07/[address] [place] [address] Romain IBARRAB ([facility])(S cott [facility] Fam Res Tm Green) [address] [place] [address] Romain IBARRAB ([facility])(Sco tt [facility] Fam Res Tm Green) TELE CONSULT [id number] MAGNOLIA SIMMONS 08/[address] [place] [address] Romain MARTIN ([facility])(S cott OF Fam Res Tm Green) [address] [place] [address] Romain MARTIN ([facility])(Sco tt [facility] Tm Blue) TELE CONSULT [id number] Lab Results MAGNOLIA CRAWFORD 10/[address] [place] [address] Romain MARTIN ([facility])(S cott OF FAMRES Tm Blue) [address] [place] [address] Romain MARTIN ([facility])(Sco tt [facility] Tm Blue) OUTPATIENT [id number] flu shot DARELL SNYDER Damian 01/26 Released w/o Limitations [address] [place] [address] Romain MARTIN ([facility])(S cott OF FAMRES Tm Blue) [address] [place] [address] Romain MARTIN ([facility])(Sco tt [facility] Tm Blue) OUTPATIENT [id number] annual physica l [id number] NAIF SANDERS 12/27 Released w/o Limitations [address] [place] [address] Romain MARTIN ([facility])(S cott [facility] Tm Blue) [address] [place] [address] Romain MARTIN ([facility])(Sco tt [facility] Fam Res Tm Green) TELE CONSULT [id number] maye wagoner ALICJA NUÑEZJESSIE 12/[address] [place] [address] Romain MARTIN ([facility])(S cott OF Fam Res Tm Green) [address] [place] [address] Romain MARTIN ([facility])(Sco tt [facility] Tm Blue) OUTPATIENT [id number] well woman [id number] NAIF SANDERS 01/03 Released w/o Limitations [address] [place] [address] Romain MARTIN ([facility])(S cott OF FAMRES Tm Blue) [address] [place] [address] Romain MARTIN ([facility])(Sco tt [facility] Tm Blue) TELE CONSULT [id number] Request ing order for NAIF Gtz 01/[address] [place] [address] Romain MARTIN ([facility])(S cott OF FAMRES Tm Blue) [address] [place] [address] Romain MARTIN ([facility])(Sco tt [facility] Tm Blue) TELE CONSULT [id number] odiliara RICKIE Stanley 08/[address] [place] [address] Romain MARTIN ([facility])(S cott OF FAMRES Tm Blue) [address] [place] [address] Romain MARTIN ([facility])(Sco tt [facility] Tm Blue) TELE CONSULT [id number] refills MAGNOLIA KRISHNAMURTHY 11/[address] [place] [address] Romain STACEYB [facility])(S cott OF FAMRES Tm Blue) [address] [place] [address] Romain STACEYB [facility])(Sco tt [facility] Tm Blue) TELE CONSULT [id number] Refill - MAGNOLIA Baires 11/[address] [place] [address] Romain [facility])(S cott OF FAMRES Tm Blue) [address] [place] [address] Romain IBARRAB [facility])(Sco tt [facility] Tm Blue) OUTPATIENT [id number] physica l NAIF SANDERS 03/20 Released w/o Limitations [address] [place] [address] Romain IBARRAB [facility])(S cott [facility] Tm Blue) [address] [place] [address] Romain STACEYB [facility])(Sco tt [facility] Tm Blue) OUTPATIENT [id number] physica l [phone] MAGNOLIA KRISHNAMURTHY 01/22 Released w/o Limitations [address] [place] [address] Romain IBARRAB [facility])(S cott [facility] Tm Blue) [address] [place] [address] Romain [facility])(Sco tt [facility] Tm Blue) OUTPATIENT [id number] annual exam [id number] MAGNOLIA KRISHNAMURTHY 04/06 Released w/o Limitations [address] [place] [address] Romain IBARRAB [facility])(S cott [facility] Tm Blue) [address] [place] [address] Romain STACEYB [facility])(Sco tt [facility] Tm Blue) TELE CONSULT [id number] Notes Entered by: RICKIE DOUGLAS 27 Apr 2011 1338 ------- ------- ------- ------- -- Tcon for lab results Dr Fausto mcknight ph [phone] cad dmMAGNOLIA Ferrer 04/[address] [place] [address] Romain STACEYB [facility])(S cott [facility] Tm Blue) [address] [place] [address] Romain [employer] [facility])(Sco tt [facility] Tm Blue) OUTPATIENT [id number] F/U thyroid concern s [phone] ARJUN LAUGHLIN 05/21 Released w/o Limitations [address] [place] [address])(S cott [facility] Tm Blue) [address] [place] [address])(Sco tt [facility] FAMDokDok Tm Blue) TELE CONSULT [id number] Notes Entered by: PIPE PALUMBO 29 Jun 2011 1137 ------- ------- ------- ------- -- Lab request /Luis mcknight/Uday.5 500/mnm MAGNOLIA KRISHNAMURTHY 06/[address] [place] [address])(S cott [facility] Saqina Tm Blue) [address] [place] [address])(Sco tt [facility] Saqina Tm Blue) TELE CONSULT [id number] Notes Entered by: Teto AYON 19 Jul 2011 1419 ------- ------- ------- ------- -- Lab results Fausto mcknight/cad/c MAGNOLIA Barroso 07/[address] [place] [address])(S cott [facility] FAM[employer]ok[employer]ok Tm Blue) [address] [place] [address])(Sco tt [facility] Saqina Tm Blue) TELE CONSULT [id number] Notes Entered by: RICKIE DOUGLAS 01 Oct 2011 1317 ------- ------- ------- ------- -- Tcon for to order lab work Dr Fausto mcknight ph [phone] cad RICKIE Serna 09/[address] [place] [address])(S cott [facility] FAMDokDok Tm Blue) [address] [place] [address])(Sco tt [facility] Clikthrough Blue) TELE CONSULT [id number] Notes Entered by: RICKIE DOUGLAS 11 Oct 2011 1402 ------- ------- ------- ------- -- Tcon for Hep C testing Dr Fausto mcknight ph [phone] cad RICKIE Serna 10/[address] [place] [address])(S cott [facility] FAMRES Tm Blue) [address] [place] [address])(Sco tt [facility]) TELE CONSULT [id number] Notes Entered by: Teto AYON 05 Mar 2012 1310 ------- ------- ------- ------- -- Lab order/S eileen Silverman514 [id number] ROSALIND MARTINEZ 03/[address] [place] [address])(S cott [facility] FAMRES Tm Blue) [address] [place] [address])(Sco tt [facility] Tm Blue) TELE CONSULT [id number] Notes Entered by: NANCY ARGUELLO 31 Mar 2012 1425 ------- ------- ------- ------- -- Lab results request -Eber shirley/[phone] ROSALIND MARTINEZ 03/[address] [place] [address])(S cott [facility] FAMRES Tm Blue) [address] [place] [address])(Sco tt [facility] Blue) OUTPATIENT [id number] Pt w/abnor mal lab request ed an appt w/pcm. MAGNOLIA KRISHNAMURTHY 04/17 Released w/o Limitations [address] [place] [address])(S cott [facility] FAMRES Tm Blue) [address] [place] [address])(Sco tt [facility] Tm Blue) TELE CONSULT [id number] Notes Entered by: ANUSHA DO 26 Jun 2012 1354 ------- ------- ------- ------- -- Lab results Fausto mcknight leave message if no answer NETO GUILLAUME 06/[address] [place] [address])(S cott [facility] FAMRES Tm Blue) [address] [place] [address])(Sco tt [facility] FAMRES Tm Blue) TELE CONSULT [id number] Notes Entered by: NANCY ARGUELLO 07 Oct 2012 1412 ------- ------- ------- ------- -- Lab request for medicat ion rizwana/ Mustapha / NEHAL DAVIS 10/[address] [place] [address] Romain [facility])(S [facility] FAMRES Tm Blue) [address] [place] [address])(Sco tt [facility] Tm Blue) TELE CONSULT [id number] Notes Entered by: AUBREY IGLESIAS 13 Oct 2012 1203 ------- ------- ------- ------- -- Lab results AUBREY IGLESIAS 10/[address] [place] [address])([facility] [address] [place] [address])([facility] Tm Blue) TELE CONSULT [id number] Notes Entered by: AUBREY IGLESIAS 13 Mar 2013 0755 ------- ------- ------- ------- -- Micare Request AUBREY IGLESIAS 03/[address] [place] [address] Romain [facility] [address] [place] [address])(Coo tt [facility] Fam Res Tm Gold) TELE CONSULT [id number] med refjayme Cody VIVI PALOMARES 03/16 Referred for Appointment [address] [place] [address] Romain [facility])(S [facility] Fam Res Tm Gold) [address] [place] [address])(Sco tt [facility] Fam Res Tm Gold) TELE CONSULT [id number] Notes Entered by: RED CODY 29 Mar 2014 1318 ------- ------- ------- ------- -- Renew RED Kinney 03/[address] [place] [address] Romain [facility])(S [facility] Fam Res Tm Gold) [address] [place] [address])(Sco tt [facility] Fam Res Tm Gold) TELE CONSULT [id number] Notes Entered by: CAROL AGUIAR 04 Nov 2014 1439 ------- ------- ------- ------- -- Gastroe nterolo gy ReferGRACE Vogt 11/04 Referred for Appointment [address] [place] [address] Romain [facility])(S cott [facility] Fam Res Tm Gold) [address] [place] [address] Romain [facility])(Sco tt [facility] Fam Res Tm Gold) TELE CONSULT [id number] Notes Entered by: Fay SANTOS 13 Dec 2014 1143 ------- ------- ------- ------- -- [facility] Loren/Savanna / Escobar / ROSA MARTINEZ 12/[address] [place] [address] Romain [facility])(S cott [facility] Fam Res Tm Gold) [address] [place] [address] Romain [facility])(Sco tt [facility] FAMRES Tm Blue) TELE CONSULT [id number] Notes Entered by: RICKIE DOUGLAS 14 Dec 2014 0732 ------- ------- ------- ------- -- Network results - Urgent Care 015 CELESTE BARRIOS 12/[address] [place] [address])(S [facility] FAMRES Tm Blue) [address] [place] [address])(Sco tt [facility] Fam Res Tm Gold) TELE CONSULT [id number] Notes Entered by: SATYA BERRIOS 22 Dec 2014 1325 ------- ------- ------- ------- -- DAVE Howard 12/22 Referred for Appointment [address] [place] [address])(S [facility] Fam Res Tm Gold) [address] [place] [address] Romain [facility])(Sco tt [facility] Fam Res Tm Gold) OUTPATIENT [id number] urgent care, [facility], r RED Gray 12/28 Released w/o Limitations [address] [place] [address])([facility] Fam Res Tm Gold) [address] [place] [address] Romain [employer] [facility])([facility] Fam Res Tm Gold) TELE CONSULT [id number] Notes Entered by: MARY OCAMPO 28 Dec 2014 1448 ------- ------- ------- ------- -- Network Results -GASTRO ENTEROL OGY 12/28/14 RED CODY 12/[address] [place] [address] Romain [employer] [facility])([facility] Fam Res Tm Gold) [address] [place] [address] Romain [employer] [facility])([employer] ecology) OUTPATIENT [id number] pap exam [phone] JAYNE BLAKE 01/18 Released w/o Limitations [address] [place] [address] Romain [facility])(G ynecolo gy) [address] [place] [address] Romain [employer] [facility])([employer] ecology) TELE CONSULT [id number] Notes Entered by: KARLENE BLAKE 19 Jan 2015 0757 ------- ------- ------- ------- -- results BRUNO ROSENTHAL 01/[address] [place] [address] Romain [facility])(G ynecolo gy) [address] [place] [address] Romain B [facility])(Ob/ [employer]) TELE CONSULT [id number] BRUNO ROSENTHAL 01/[address] [place] [address] Romain [facility])(O b/[employer]) [address] [place] [address] Romain [facility])([employer] ecology) TELE CONSULT [id number] Notes Entered by: KARLENE BLAKE 31 Jan 2015 0808 ------- ------- ------- ------- -- results BRUNO ROSENTHAL 01/[address] [place] [address] Romain [facility])(G ynecolo gy) [address] [place] [address] Romain B [facility])([facility] Fam Res Tm Red) OUTPATIENT [id number] 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/ [id number] WILL WOMACK 02/04 Released w/o Limitations [address] [place] [address] Romain [employer] [facility])([facility] Fam Res Tm Red) [address] [place] [address] Romain B [facility])([facility] Fam Res Tm Gold) TELE CONSULT [id number] Notes Entered by: PIPE PALUMBO 10 Feb 2015 1418 ------- ------- ------- ------- -- Lab results /escobar / WILL WOMACK 02/10 Released w/o Limitations [address] [place] [address] Group [employer]ain B [facility])([facility] Fam Res Tm Gold) [address] [place] [address] Romain [employer] [facility])([facility] Fam Res Tm Gold) TELE CONSULT [id number] Notes Entered by: RICHARDSON BELCHER 28 Feb 2015 1322 ------- ------- ------- ------- -- High Blood pressur e update/ Escobar/ [id number] DAVE BERRIOS 02/28 Referred for Appointment [address] [place] [address] Group Romain B [facility])([facility] Fam Res Tm Gold) [address] [place] [address] Romain [employer] [facility])([employer] ecology) TELE CONSULT [id number] Notes Entered by: MADELIN DURAN 02 Mar 2015 0916 ------- ------- ------- ------- -- Scanned Bilater al breast MRI into JAYNE HUDSON Jayce 03/[address] [place] [address] Romain B [facility])(G ynecolo gy) [address] [place] [address] Romain [employer] [facility])([facility] Fam Res Tm Red) TELE CONSULT [id number] Notes Entered by: WILL WOMACK 03 Mar 2015 1709 ------- ------- ------- ------- -- CT results WILL WOMACK 03/03 Referred for Appointment [address] [place] [address] Group Romain [employer] [facility])([facility] Fam Res Tm Red) [address] [place] [address] Romain B [facility])([employer] ecology) TELE CONSULT [id number] Notes Entered by: MARY OCAMPO 04 Mar 2015 0938 ------- ------- ------- ------- -- Network Results -RADIOL OGY 5 JAYNE JAFFE 03/[address] [place] [address])(G ynecolo gy) [address] [place] [address])(Sco tt [facility] Fam Res Tm Gold) OUTPATIENT [id number] fu bone density [phone] cyst on right kidney, blood pressur e RED Vaughan 03/21 Released w/o Limitations [address] [place], [place] [address]B [facility])(S cott [facility] Fam Res Tm Gold) [address] [place] [address])([employer] ecology) TELE CONSULT [id number] Notes Entered by: KARLENE BLAKE 19 Apr 2015 0928 ------- ------- ------- ------- -- results DENISE LUJAN 04/[address] [place] [address])(G ynecolo gy) [address] [place] [address])(Med ication Refill [facility]) TELE CONSULT [id number] Notes Entered by: RADHIKA LORENZO 28 Sep 2016 1320 ------- ------- ------- ------- -- Med Renewal /Kelvin/ [phone] 0/clm DAVE BERRIOS 09/28 Referred for Appointment [address] [place] [address])(Rochelle garcias [facility]) [address] [place] [address])([employer] ecology) OUTPATIENT [id number] annual wwe - [phone] JAYNE BLAKE 10/05 Released w/o Limitations [address] [place] [address])(G ynecolo gy) [address] [place] [address])([employer] ecology) TELE CONSULT [id number] Notes Entered by: ABDULLAHI GONZALEZ 05 Oct 2016 1436 ------- ------- ------- ------- -- Lab Results JAIR CHIN TOMAS 10/05 Referred for Appointment [employer] [facility])(G ynecolo gy) [facility] [employer] ([facility])([employer] ecology) TELE CONSULT [id number] Notes Entered by: ABDULLAHI GONZALEZ 08 Oct 2016 1319 ------- ------- ------- ------- -- Lab Results JAIR CHIN TOMAS 10/08 Referred for Appointment [employer] ([facility])(G ynecoconnor gy) [facility] [employer] [facility])(Ob/ [employer]) TELE CONSULT [id number] Notes Entered by: YANELI MCNEAL 12 Oct 2016 0754 ------- ------- ------- ------- -- Normal lab SUSY MCNEAL 10/12 [facility] [employer] ([facility])(O b/[employer]) [facility] [employer] ([facility])(Coo tt [facility] FAMRES Tm Blue) TELE CONSULT [id number] Notes Entered by: SUKUMAR PARKER 12 Oct 2016 1250 ------- ------- ------- ------- -- Lab Results /Kelvin/ DAVE BERRIOS 10/12 Referred for Appointment [facility] [employer] ([facility])(S cott [facility] FAMRES Tm Blue) [facility] [employer] ([facility])(Coo tt [facility] FAMRES Tm Blue) TELE CONSULT [id number] Notes Entered by: GEORGINA MELENDEZ 18 Oct 2016 0849 ------- ------- ------- ------- -- SABRA Marte 10/18 [facility] [employer] ([facility])(S cott [facility] FAMRES Tm Blue) [facility] [employer] [facility])(Sco tt [facility] FAMRES Tm Blue) OUTPATIENT [id number] fu labs, dyslipi demia [phone] YESSICA ROSARIO 10/24 Released w/o Limitations [address] [place] [address] Romain STACEYSofia [facility])(S cott [facility] FAMRES Tm Blue) [address] [place] [address] Romain [facility])([employer] ecology) TELE CONSULT [id number] Notes Entered by: MARY OCAMPO 01 Nov 2016 1029 ------- ------- ------- ------- -- Network Results -RADIOL OGY 10/16/16 SCREEN MAMMO JAYNE JAFFE 11/[address] [place] [address] Romain STACEYSof[facility])(G ynecolo gy) [address] [place] [address] Romain STACE[facility])(Sco tt [facility] FAMRES Tm Blue) OUTPATIENT [id number] skin lesions [phone] YESSICA ROSARIO 11/05 Released w/o Limitations [address] [place] [address] Romain STACEYoSfia [facility])(S cott [facility] FAMRES Tm Blue) [address] [place] [address] Romain STACEYSof[facility])(Sco tt [facility] FAMRES Tm Blue) TELE CONSULT [id number] Notes Entered by: Sofia BRUMFIELD 13 Nov 2016 0755 ------- ------- ------- ------- -- Express scripts (Kelvin) YESSICA ROSARIO 11/[address] [place] [address] Romain STACEYSofia [facility])(S cott [facility] FAMRES Tm Blue) [address] [place] [address] Romain [facility])(Sco tt [facility] FAMRES Tm Blue) TELE CONSULT [id number] Notes Entered by: SUKUMAR PARKER 21 Nov 2016 1046 ------- ------- ------- ------- -- Med Renewal to [employer] Script[employer] /Kelvin/ YESSICA ROSARIO 11/[address] [place] [address] Romain STACEYSofia [facility])(S [facility] FAMRES Tm Blue) [address] [place] [address] Romain Sofia [facility])([facility] EnforaRES Tm Blue) TELE CONSULT [id number] Notes Entered by: RADHIKA LORENZO 07 Dec 2016 1542 ------- ------- ------- ------- -- Express Scripts /Kelvin/ /c YESSICA Wen 12/[address] [place] [address])(S [facility] Tm Blue) [address] [place] [address])([facility] FAMRES Tm Blue) TELE CONSULT [id number] Notes Entered by: SHAYLA MALCOLM 07 Mar 2017 0806 ------- ------- ------- ------- -- Express script MIGUEL Rodriguez 03/[address] [place] [address])([facility] Tm Blue) [address] [place] [address])([employer] ecology) TELE CONSULT [id number] Notes Entered by: Damian RAMOS 28 Mar 2017 1636 ------- ------- ------- ------- -- Referra for breast MRI and bone density JOLANTA RAMOS 03/[address] [place] [address])(G alejo gy) [address] [place] [address])([employer] ecology) TELE CONSULT [id number] Notes Entered by: KARLENE BLAKE 03 Apr 2017 1719 ------- ------- ------- ------- -- results JAIR CHIN 04/03 Referred for Appointment [address] [place] [address])(G ybroderickcoconnor gy) [address] [place] [address])([employer] ecology) TELE CONSULT [id number] Notes Entered by: KARLENE BLAKE 01 May 2017 0758 ------- ------- ------- ------- -- results JAIR CHIN 05/01 Referred for Appointment [employer] ([facility])(G ynecolo gy) [employer] ([facility])(Sco tt [facility] FAMRES Tm Blue) OUTPATIENT [id number] cough continu e [id number] ALVERTODELL JESSEE MELISSA 05/06 Released w/o Limitations [employer] ([facility])([facility] [employer] ([facility])([employer] ecology) OUTPATIENT [id number] ww JAYNE BLAKE 10/01 Released w/o Limitations [employer] ([facility])(G ynecolo gy) [facility] [employer] ([facility])([employer] ecology) TELE CONSULT [id number] Notes Entered by: KARLENE BLAKE 14 Nov 2017 1722 ------- ------- ------- ------- -- SUSY Bhagat 11/14 Released w/o Limitations [employer] ([facility])(G ynecolo gy) [facility] [employer] ([facility])([employer] ecology) TELE CONSULT [id number] Notes Entered by: Damian RAMOS 04 Apr 2018 1604 ------- ------- ------- ------- -- JOLANTA Javed 04/04 Referred for Appointment [employer] ([facility])(G ynecolo gy) [facility] [employer] ([facility])([employer] ecology) TELE CONSULT [id number] Notes Entered by: Amber DA SILVA 23 Apr 2018 0825 ------- ------- ------- ------- -- Physici an request ed T-CON for Network Results -Radiol ogy 019 SUSY DINH 04/23 Referred for Appointment [employer] ([facility])(G ynecolo gy) [address] [place] [address] Romain [facility])([employer] ecology) TELE CONSULT [id number] Notes Entered by: KARLENE BLAKE 28 Jul 2018 1305 ------- ------- ------- ------- -- Rf request SUSY MCNEAL 07/28 Referred for Appointment [address] [place] [address] Romain [facility])(G ynecoconnor gy) [address] [place] [address] Romain [facility])(Sco tt [facility] FAMRES Tm Blue) OUTPATIENT [id number] discuss christy g BP medicat ion ZEKE FRAGA 09/19 Released w/o Limitations [address] [place] [address] Romain B [facility])(S cott [facility] FAMRES Tm Blue) [address] [place] [address] Romain [facility])(Sco tt [facility] FAMRES Tm Blue) TELE CONSULT [id number] Notes Entered by: PIPE PALUMBO 29 Sep 2018 0942 ------- ------- ------- ------- -- Low pulse concern s/Thais n/ MELYSSA Vasquez 09/29 Released to Self [facility] [address] [place] [address] [facility]S cott [facility] FAMRES Tm Blue) [address] [place] [address] Romain [facility])(Sco tt [facility] FAMRES Tm Blue) OUTPATIENT [id number] F/U ZEKE FRAGA 10/02 Released w/o Limitations [address] [place] [address] Romain IBARR[facility])(S cott [facility] FAMRES Tm Blue) [address] [place] [address] Romain [facility])([employer] ecology) OUTPATIENT [id number] 00 JAYNE BLAKE 10/13 Released w/o Limitations [address] [place] [address] Romain [employer] [facility])(G ynecolo gy) [address] [place] [address] Romain B [facility])(Sco tt [facility] FAMRES Tm Blue) OUTPATIENT [id number] discuss medicat ion BECCA ESPANA 10/30 Released w/o Limitations [address] [place] [address] Romain [facility])(S [facility] FAMRES Tm Blue) [address] [place] [address] Romain [facility])([employer] ecology) TELE CONSULT [id number] Notes Entered by: MADELIN DURAN 05 Nov 2018 0825 ------- ------- ------- ------- -- message for SUSY Abel 11/05 Medication Refill Forwarded [address] [place] [address] Romain [facility])(G alejo gy) [address] [place] [address] Romain [facility])(Ob/ [employer]) TELE CONSULT [id number] Notes Entered by: KAYLA VALENTIN 20 Nov 2018 1342 ------- ------- ------- ------- -- Network results Radiolo gy 019 SUSY SIDDIQUI 11/20 Released to Self [facility] [address] [place] [address] Romain [facility])(O b/[employer]) [address] [place] [address] Romain [facility])(Sco tt [facility] Fam Res Tm Green) TELE CONSULT [id number] Notes Entered by: MERLYN SOLARES 28 Jan 2019 1021 ------- ------- ------- ------- -- Prescri ption Renewal Request HESHAM SULLIVAN 01/28 Medication Refill Forwarded [address] [place] [address] Romain [facility])([facility] Fam Res Tm Green) [address] [place] [address])(Sco tt [facility] FAMRES Tm Blue) OUTPATIENT [id number] f/u hyperal dostero ZEKE Degroot 02/12 Released w/o Limitations [address] [place] [address])([facility] FAMRES Tm Blue) [address] [place] [address])([employer] ecology) TELE CONSULT [id number] Notes Entered by: Damian RAMOS 28 Apr 2019 1143 ------- ------- ------- ------- -- breast MRI referra horace PRUITTJOLANTA HARDIN LAKEISHA 04/27 Referred for Appointment [address] [place] [address] Group [employer] [facility])(G ynecolo gy) [address] [place] [address] [employer] [facility])(Ob/ [employer]) TELE CONSULT [id number] Notes Entered by: Fay JACOBO 14 May 2019 1037 ------- ------- ------- ------- -- Network results Radiolo gy 020 SUSY MARES 05/13 Released to [facility] Care [facility] [employer] ([facility])(O b/[employer] Publishing) [address] [place] [address] [employer] [facility])([employer] ecology) TELE CONSULT [id number] Notes Entered by: Amber DA SILVA 20 Jan 2020 0943 ------- ------- ------- ------- -- Network results Radiolo gy 020 SANNA GOETZ 01/19 [facility] [employer] [facility])(G ynecolo gy) [address] [place] [address] [employer] [facility])(S[facility] Blue) OUTPATIENT [id number] Virtual - Med Renewal ZEKE FRAGA 01/31 Released w/o Limitations [facility] [employer] ([facility])(S cott [facility] Blue) [facility] Medical [facility] [employer] [facility])([employer] ecology) OUTPATIENT [id number] 9 WWE JAYNE BLAKE 06/22 Released w/o Limitations [facility] [employer] ([facility])(G ynecolo gy) [facility] Medical [facility] [employer] ([facility])(Ob/ [employer]) TELE CONSULT [id number] REX BRIGHT 07/27 Other Not Elsewhere Classified [facility] [employer] ([facility])(O b/Manager Publishing) [facility] Medical [facility] [employer] ([facility])(Manager Publishing ecology) TELE CONSULT [id number] Notes Entered by: CONNOR WU 22 Nov 2020 1115 ------- ------- ------- ------- -- Med NIKOLAS Mims ALL 11/22 Other Not Elsewhere Classified [facility] Medical Group [facility])(G ynecolo gy) [address] [place] [address])(Manager Publishing ecology) OUTPATIENT [id number] Lower Pelvic Pain JAYNE BLAKE 03/07 Released w/o Limitations [address] [place] [address])(G ynecolo gy) [address] [place] [address])(Manager Publishing ecology) TELE CONSULT [id number] Notes Entered by: KARLENE BLAKE 21 Mar 2021 0832 ------- ------- ------- ------- -- results DENISE LUJAN 03/21 Released to Self [facility] [address] [place] [address])(G ynecolo gy) [address] [place] [address])(Manager Publishing ecology) TELE CONSULT [id number] Notes Entered by: KARY PARSON 11 Apr 2021 1457 ------- ------- ------- ------- -- [place] into [facility] DENISE LUJAN 04/11 Released to Self Care [address] [place] [address])(G ynecolo gy) [address] [place] [address])(Manager [employer] ecology) TELE CONSULT [id number] Notes Entered by: DENISE LUJAN 09 Aug 2021 1441 ------- ------- ------- ------- -- appt DENISE LUJAN 08/09 Released to Self Care [address] [place] [address])(G ynecolo gy) [address] [place] [address])([employer] ecology) TELE CONSULT [id number] Notes Entered by: DENISE LUJAN 17 Aug 2021 1348 ------- ------- ------- ------- -- Appt DENISE LUJAN 08/17 Referred for Appointment [address] [place] [address])( alejo gy) [address] [place] [address])(Manager [employer] ecology) OUTPATIENT [id number] [facility] JAYNE BLAKE 09/04 Released w/o Limitations [address] [place] [address])( gunnarpatricia gy) [address] [place] [address])(Manager [employer] ecology) TELE CONSULT [id number] Notes Entered by: DENISE LUJAN 13 Sep 2021 1403 ------- ------- ------- ------- -- order for testing DENISE LJUAN 09/13 Referred for Appointment [address] [place] [address])( alejo gy) [address] [place] [address])(Manager [employer] ecology) TELE CONSULT [id number] Notes Entered by: DENISE LUJAN 15 Sep 2021 1412 ------- ------- ------- ------- -- breast testing DENISE LUJAN 09/15 Referred for Appointment [address] [place] [address])( alejo gy) [address] [place] [address])(Manager Publishing ecology) TELE CONSULT [id number] Notes Entered by: SUZAN RETANA 25 Dec 2021 1611 ------- ------- ------- ------- -- DENISE CORONEL 12/25 Referred for Appointment [address] [place] [address])(Valentina dhillon gy) [id number] [facility] [id number] Obesity , unspeci fied,Mario dy mass index (BMI) 30.0-30 .9, adult,A ge-rela wilver osteopo rosis without current patholo gical fractur e,Encou nter for gynecol ogical examina tion (genera l) (routin e) with abnorma l finding s,Other signs and symptom s in breast, Stress inconti nence (female ) (male) JAYNENAHUN KEARNEY 10/20 Discharge Disposition: Home or Self Care 0055C-3 [facility] 0055C-375 [facility] Between Visit [id number] 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 Procedure Procedure Type Code Date Perfomer Comments Patrick e left adrenal gland removed 07/25/19 24 0055C-375 [facility] Hemorrhoidectomy 03/28/19 23 0055C-375 [facility] Bunionectomy R foot 02/25/19 21 0055C-375 [facility] Bilateral tubal Ligation 02/25/18 87 0055C-375 th [facility] Cyst removal L breast 02/25/18 68 0055C-375 [facility] Non-Physician Phone Call To Patient/Provider Brief (5-10min) Non-Physician Phone Call To Patient/Provider Brief (5-10min) [id number] 09/29/19 17 YESSICA ROSARIO [facility] Screening papanicolaou smear; obtaining, preparing and conveyance of cervical or vaginal smear to laboratory 01/19/20 15 JAYNE BLAKE [facility] Non-Physician Phone Call To Patient/Provider Brief (5-10min) Non-Physician Phone Call To Patient/Provider Brief (5-10min) [id number] 12/23/19 15 DAVE BERRIOS [facility] Non-Physician Phone Call To Patient/Provider Brief (5-10min) Non-Physician Phone Call To Patient/Provider Brief (5-10min) [id number] 12/14/19 15 ROSA MARTINEZ [facility] Non-Physician Phone Call To Patient/Provider Brief (5-10min) Non-Physician Phone Call To Patient/Provider Brief (5-10min) [id number] 11/05/19 15 GRACE AGUIAR [facility] Non-Physician Phone Call To Patient/Provider Brief (5-10min) Non-Physician Phone Call To Patient/Provider Brief (5-10min) [id number] 03/17/19 15 VIVI PALOMARES [facility] Non-Physician Phone Call To Pt/Provider Intermed (11-20 min) Non-Physician Phone Call To Pt/Provider Intermed (11-20 min) [id number] 10/11/19 12 RICKIE LOCKHART [facility] Non-Physician Phone Call To Pt/Provider Intermed (11-20 min) Non-Physician Phone Call To Pt/Provider Intermed (11-20 min) [id number] 10/01/19 12 RICKIE LOCKHART [facility] Non-Physician Phone Call To Patient/Provider Brief (5-10min) Non-Physician Phone Call To Patient/Provider Brief (5-10min) [id number] 05/15/19 12 RICKIE LOCKHART [facility] Screening papanicolaou smear; obtaining, preparing and conveyance of cervical or vaginal smear to laboratory 04/06/19 12 VANCE KRISHNAMURTHY [facility] Non-Physician Phone Call To Patient/Provider Brief (5-10min) Non-Physician Phone Call To Patient/Provider Brief (5-10min) [id number] 08/23/19 10 RICKIE LOCKHART [facility] Non-Physician Phone Call To Patient/Provider Brief (5-10min) Non-Physician Phone Call To Patient/Provider Brief (5-10min) [id number] 01/20/20 09 NAIF SANDERS [facility] Screening papanicolaou smear; obtaining, preparing and conveyance of cervical or vaginal smear to laboratory 01/04/20 09 NAIF SANDERS Influenza Split Virus Vaccine Age 3+ Years Intramuscular 01/27/20 08 DARELL SNYDER Do[facility] Immunization Administration One Vaccine Immunization Administration One Vaccine [id number] 01/27/20 08 DARELL SNYDER [facility] Vaginal Pap Smear Vaginal Pap Smear 44696 07/09 08 VANCE CRAWFORD [facility] Screening papanicolaou smear; obtaining, preparing and conveyance of cervical or vaginal smear to laboratory 05/25/19 07 NORMA CISNEROS [facility] Cervical Pap Smear Cervical Pap Smear 93273 06 ROB RODRIGUEZ [facility] TELE ASSESS & [...] HR/SOON APT;5-10 MIN MED DIS 04/27/19 12 [facility] SCREENING PAPANICOLAOU SMEAR; OBTAINING, PREPARING AND CONVEYANCE [...] VAGINAL, UP TO THREE SMEARS; SCREENING BY TRUCK DRIVING INSTRUCTOR UNDER PHYSICIAN SUPERVISION 07/10/19 08 [facility] SCREENING PAPANICOLAOU SMEAR; OBTAINING, PREPARING AND CONVEYANCE OF CERVICAL OR VAGINAL SMEAR TO LABORATORY 05/25/19 07 [facility] CYTOPATHOLOGY, SMEARS, CERVICAL OR VAGINAL, UP TO THREE SMEARS; SCREENING BY TRUCK DRIVING INSTRUCTOR UNDER PHYSICIAN SUPERVISION 03/14/19 06 DoD Social History Combined list of available smoking, tobacco, and other social history from Department of Defense and Veterans Affairs facilities. Social History Type Response Date Comment Sour e Sex Representation Female (finding) 04/19/2022 Unknown Organization Tobacco Frequent/Daily exposure to secondhand smoke in [...] tory Pharmacy Gender identity Ambulator y Pharmacy This section is an empty social history section. [facility] Assessment and Plan Combined list of future care activities from Department of Defense and Veterans Affairs facilities (e.g., assessment and plan notes, appointments, orders, and referrals). Additional future care activities may be listed in the Plan of Care section. 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 6. B MD 30.0 to 30.9 Pt questions addressed and written discharge instructions were provided to the patient. Jayne [facility] Extracted from:Title: [employer] Author: JAYNE BLAKE [...] serving sizes can be found at h ttps://www.Mobile Experiencemyplate.gov/.& #160; T hese amounts are appropriate for [...] symptoms in breast MRI referral placed; contact [facility] next week to scheduleafter Ordered: Referral Request [...] to post... Jayne [facility] 09/08/2024 [id number] Functional Status Combined list of recent functional and cognitive assessments recorded at Department of Defense and Veterans Affairs (VA).VA Functional Manatee Measurement (FIM) Scale: 1 = Total Assistance (Subject = 0% +), 2 = Maximal Assistance (Subject = 25% +), 3 = Moderate Assistance (Subject = 50% +), 4 = Minimal Assistance (Subject = 75% +), 5 = Supervision, 6 = Modified Manatee (Device), 7 = Complete Manatee (Timely, Safely). Assessment Date/Time Source Assessment Type Assessment Skill Assessment Score Assessment Details No data available for this section
--- OUTSIDE RECORDS SUMMARY | 2024-09-08 11:44 | XMS_ITS | Clinical Summary ---
Author Organization [facility] Medical Office Building [address] [place] [address] Care Team Providers Care Oracle Manufacturing Consultant Name Role Phone London Tiwari DO Primary Care Provider [phone] Allergies No known active allergies Medications atorvastatin [...] - 07/30/2024 11:59 PM CDT Hospital Encounter [facility] Medical Office Bldg 1 [facility] [address] [place] [address] Screening mammogram, encounter for Discharge Disposition: Discharge to home or self care from Last 3 Months Immunizations Immunization Administration Dates Next Due COVID-19 mRNA (MyWedding) 0.3 m L (30 mcg) vaccine (12 [...] on file Legal Sex Female 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
--- OUTSIDE RECORDS SUMMARY | 2024-09-08 11:45 | XMS_ITS | Clinical Summary ---
Author Organization [facility] Address [address] [place] [address] Care Team Providers Care Gypsum Block Setter Name Role Phone Keyur Can PA-C Primary Care Provider [phone] Emilia Rodriguez PLASTER MIXER Unavailable Social History Tobacco Use Types Packs/Day Years Used Date Smoking Tobacco: Never Assessed Comments Unknown Sex and Gender Information Value Date Recorded Sex Assigned at Not on file Legal Sex Female 1:43 AM CDT Gender Identity Not on file Sexual Orientation Not on file Plan of Treatment Health Maintenance Due Date Last Done Comments Colorectal Cancer Screening Colonoscopy (10 Years) 1950 Hepatitis C 02/12/1968 Annual Medicare Wellness Visit 2015 COVID-19 Vaccine ( season) 2024 11/19/2023, 05/28/2023, 11/22/2022, Additional history exists Mammogram Screening 06/19/2025 06/20/2023, 06/18/2022, 04/11/2021, Additional history exists DTaP, Tdap and Td Vaccines (3 - Td or Tdap) 03/15/2030 03/15/2020, 02/20/2010, 12/11/2002 Pneumococcal Vaccine: 50+ Years Completed 09/07/2016, 03/21/2015 Zoster Vaccines Completed 01/27/2020, 10/26, 10/29/2019, Additional history exists RSV Immunization or 60+ Years Completed 10/31/2022 Dexa Scan (General) Completed 03/26/2023, 03/26/2023, 09/21/2021, Additional history exists Meningococcal B Vaccine Aged Out No l onger eligible based on patient's age to complete this topic Meningococcal Vaccine Aged Out No gurpreet demetrius eligible based on patient's age to complete this topic RSV Immunizations Under 20 Months Aged Out No longer eligible based on patient's age to complete this topic Insurance MEDICARE [facility] [employer] Care Teams Gypsum Block Setter Relationship Specialty Start Date End Date Keyur Can PA-C [address] [place] [address] PCP - General PHYSICIAN TIRE FABRIC IMPREGNATING RANGE TENDER 11/28/22 Emilia Rodriguez NP [address] [place] [id number] [facility] 12/04/23
--- OUTSIDE RECORDS SUMMARY | 2024-09-08 11:45 | XMS_ITS | Clinical Summary ---
Author Organization [facility] Address [address] [place] [address] Care Team Providers Care Silverware Buffer Name Role Phone London Tiwari Primary Care Provider [phone] Source Comments [facility],non-owned Affiliates and Associated Physician Practices is amultiple site organization consisting of ambulatory clinics and hospital sitesin [place], [place], [place] and [place]. This disclosure is being madepursuant to the Care Everywhere program and may not contain all information available regarding this patient. Last updated 17.[facility] Allergies No known active allergies Medications * Be aware that medications may not be up to date on this document. Alwaysverify current medications with the patient. Vitamin D3, cholecalciferol , 2000 UNITS tablet Take by mouth once daily Active fluticasone propionate (FLONASE) 50 MCG/ACT nasal spray [place] 1 (one) spray into each nostril as needed 8 Active Coenzyme Q10 (COQ10) 100 MG Take 100 (one hundred) mg by mouth once daily Active sertraline (ZOLOFT) 50 MG tablet Take 1 (one) tablet by mouth once daily Active Calcium-Magnesi um-Vitamin D (CITRACAL SLOW RELEASE) 600-40-500 MG-MG-UNIT TB24 Acti ve Cyanocobalamin (B-12) 1000 MCG Take 1 capsule by mouth once daily 1 Active atorvastatin (Lipitor) 40 MG tablet Take 1 (one) tablet by mouth at bedtime 90 tablet 3 4 Active Zoledronic Acid (RECLAST IV) Active Menaquinone-7 [...] 4 Grams (4000 mg) / 24 hours. 4 Active Norvasc 5 MG tablet 4 Active estrogens, conjugated, (Premarin) 0.625 MG/GM vaginal cream Insert 1 g into the vagina 3 Active amLODIPine (Norvasc) 5 MG tablet Take 1 (one) tablet by mouth 4 025 Active atorvastatin (Lipitor) 40 MG tablet Take 1 (one) tablet by mouth 4 025 Active sertraline (Zoloft) 50 MG tablet Take 1 (one) tablet by mouth 4 025 Active levothyroxine (Synthroid) 112 MCG tabletIndicatio ns:Hypothyroidi sm, unspecified type Take 1 (one) tablet by mouth daily before breakfast 90 tablet 3 5 Active Active Problems Problem Noted Date Diagnosed [...] Department Care Team Description 07/23/2024 Orders Only [facility] - Endocrinology [address] [place] [address] Mohan Sanchez MD Hypothyroidism, unspecified type 07/16/2024 8:45 AM CDT - 07/16/2024 11:59 PM CDT Hospital Encounter [facility] OP DRAW STATION [address] [place] [address] Discharge Disposition: Home or Self Care 07/16/2024 Orders Only [facility] - Endocrinology [address] [place] [address] Mohan Sanchez MD 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 Never true 07/25/19 24 Within the past 12 months, t [...] place to sleep or slept in a retirement (including now)? 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 Gender Identity Female 11/29/2023 3:05 PM CDT Sexual Orientation Not on file Last Filed Vital Signs Vital Sign Reading Time Taken Comments Blood Pressure 136/80 02/27/2024 8:43 AM ASSOCIATE PROFESSOR OF PHYSICS Pulse 74 02/27/2024 8:43 AM ASSOCIATE PROFESSOR OF PHYSICS Temperature 36.7 C (98 F) 12/18/2023 8:37 AM CDT Respiratory Rate 20 12/18/2023 8:37 AM CDT Oxygen Saturation 93% 02/27/2024 8:43 AM ASSOCIATE PROFESSOR OF PHYSICS Inhaled Oxygen Concentration - - Weight 84.8 kg (187 lb) 02/27/2024 8:43 AM ASSOCIATE PROFESSOR OF PHYSICS Height 170.2 cm (5' 7) 02/27/2024 8:43 AM ASSOCIATE PROFESSOR OF PHYSICS Body Mass Index 29.29 02/27/2024 8:43 AM ASSOCIATE PROFESSOR OF PHYSICS Plan of Treatment Health Maintenance Due Date [...] exists DEPRESSION SCREENING 02/26/2024 05/29/2022 INFLUENZA VACCINE (#1) 2024 3, 12/06/2021, 11/25/2020, Additional history exists Respiratory Syncytial [...] DENSITY AXIAL SKELETON Routine 04/28/2024 8:50 AM ASSOCIATE PROFESSOR OF PHYSICS Age-related osteoporosis without current pathological fracture COMPREHENSIVE METABOLIC PANEL Routine 04/28/2024 8:07 AM ASSOCIATE PROFESSOR OF PHYSICS Adrenal insufficiency from Last 3 Months or Most Recently Relevant to Health Maintenance Results * TSH (07/16/2024 9:04 AM CDT) TSH 3.921 0.350 - 4.940 uIU/mL 07/16/2024 10:44 AM CDT [facility] Blood BLOOD SPECIMEN / Unknown Lab Venipuncture / Unknown 07/16/2024 9:04 AM CDT 07/16/2024 9:53 AM CDT us Mohan Sanchez MD LAB - CHEMISTRY ORDERABLES Final Result Performing Organization Address [facility] de Phone Number [address] [address], [facility] [phone] * CORTISOL BLOOD AM (07/16/2024 9:04 AM CDT) Cortisol AM 10.6 3.7 - 19.4 ug/dL 07/16/2024 10:44 AM CDT [facility] Blood BLOOD SPECIMEN / Unknown Lab Venipuncture / Unknown 07/16/2024 9:04 AM CDT 07/16/2024 9:53 AM CDT Narrative [facility] - 07/16/2024 10:44 AM CDT Normal cortisol levels are generally highest in the morning hours and lowest from late evening through the lithographic photographer hours (8 PM to 4 AM). The PM measurements of cortisol run approximately one-half to one-third of the AM values. us Mohan Sanchez MD LAB - CHEMISTRY ORDERABLES Final Result Performing Organization Address [facility] de Phone Number [address] [address], [place] [phone] * BONE DENSITY AXIAL SKELETON(1OR MORE SITES)[id number] (04/28/2024 8:50 AM ASSOCIATE PROFESSOR OF PHYSICS) Anatomical Region Laterality Modality Other 04/28/2024 8:56 AM ASSOCIATE PROFESSOR OF PHYSICS Narrative 04/28/2024 9:13 AM ASSOCIATE PROFESSOR OF PHYSICS PROCEDURE: DEXA BONE DENSITY AXIAL SKELETON DATE/TIME [...] below > Dictated by Casimiro Andrew MD (Nursing Admin) 04/28/2024 8:56 AM IYovany DO have personally reviewed and interpreted this examination/study. > Interpreting Provider: Yovany Coelho DO on 04/28/2024 9:13 AM Procedure Note Yovany Coehlo DO - 04/28/2024 PROCEDURE: DEXA BONE DENSITY [...] below > Dictated by Casimiro Andrew MD (Nursing Admin) 04/28/2024 8:56 AM I, Yovany Coelho DO have personally reviewed and interpreted this examination/study. > Interpreting Provider: Yovany Coelho DO on 04/28/2024 9:13 AM Mohan Sanchez MD DEXA ORDERABLES Final Result * (ABNORMAL) COMPREHENSIVE METABOLIC PANEL (04/28/2024 8:07 AM [facility]) BUN 11 7 - 26 mg/dL 04/28/2024 9:49 AM [facility] Creatinine 0.83 0.56 - 0.96 mg/dL 04/28/2024 9:49 AM [facility] Sodium 139 136 - 145 mmol/L 04/28/2024 9:49 AM [facility] Potassium 4.5 3.5 - 4.5 mmol/L 04/28/2024 9:49 AM [facility] Chloride 105 98 - 107 mmol/L 04/28/2024 9:49 AM [facility] CO2 22 22 - 29 mmol/L 04/28/2024 9:49 AM [facility] Glucose 99 70 - 99 mg/dL 04/28/2024 9:49 AM [facility] Calcium 9.5 8.4 - 10.2 mg/dL 04/28/2024 9:49 AM [facility] Protein Total 7.5 6.0 - 8.3 g/dL 04/28/2024 9:49 AM [facility] Albumin 4.2 3.4 - 5.0 g/dL 04/28/2024 9:49 AM [facility] Bilirubin Total 0.8 0.2 - 1.2 mg/dL 04/28/2024 9:49 AM [facility] Alkaline Phosphatase 120 40 - 150 U/L 04/28/2024 9:49 AM [facility] ALT 23 5 - 55 U/L 04/28/2024 9:49 AM [facility] AST 24 5 - 34 U/L 04/28/2024 9:49 AM [facility] Anion Gap 12 6 - 16 04/28/2024 9:49 AM ASSOCIATE PROFESSOR OF PHYSICS [facility] BUN/Creatinine Ratio 13 7 - 23 04/28/2024 9:49 AM [facility] Osmolality Calculated 287 275 - 295 mOsm/kg 04/28/2024 9:49 AM [facility] Albumin/Globulin Ratio 1.3 1.1 - 2.3 04/28/2024 9:49 AM [facility] eGFR by CKD-EPI 74(L) >=90 mL/min/1.7 3 m2 04/28/2024 9:49 AM [facility] Blood BLOOD SPECIMEN / Unknown Lab Venipuncture / Unknown 04/28/2024 8:07 AM ASSOCIATE PROFESSOR OF PHYSICS 04/28/2024 9:05 AM ASSOCIATE PROFESSOR OF PHYSICS Mohan Sanchez MD LAB - CHEMISTRY ORDERABLES Final Result [facility] [address] [place] [address], [facility] [phone] from Last 3 Months or Most Recently Relevant to Health Maintenance Insurance MEDICARE [facility] Advance Directives * Full Code (Latest Code Status on File) Date Activated Date Inactivated Comments 07/25/2023 3:29 PM 07/27/2023 1:43 PM Care Teams Silverware Buffer Relationship Specialty Start Date End Date London Tiwari DO [address] [place] [address] PCP - General Internal Medicine 12/13/23
--- OUTSIDE RECORDS SUMMARY | 2024-09-08 11:46 | XMS_ITS | Encounter Summary ---
Author Organization [facility] Health Address [address] [facility] [place] [address] Care Team Providers Care Retrofit Installer Name Role Phone Freeman, Bill [facility] [place] Primary Care Provider [phone] Primary Care Prov ider Keyur Can PA-C Primary Care Provide r London Tiwari DO Primary Care Provider [phone] Reason for Visit * Reason Onset Date Comments MEDICATION REFILL 08/21/2017 Encounter Details Date Type Department Care Team (Late st Contact Info) Description 08/21/2017 Refill [facility] Endocrinology, Diabetes and Metabolism [address] [place] [address] Antonio Horner MD [address] [place] [address] MEDICATION REFILL Social History Tobacco Use Types Packs/Day Years Used Date Smoking Tobacco: Former Cigarettes Q uit: 11/25/1984 Smokeless Tobacco: Never Alcohol Use Standard Drinks/Week Comments Yes 1.7 (1 standard drink = 0.6 oz p ure alcohol) Comments No Sex and Gender Information Value Date Recorded Sex Assigned at Female 11/29/2023 3:05 PM CDT Legal Sex Female 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 [address] [place] [address] PCP - General 04/18/18 04/03/21 Keyur Can PA-C [address] [place] [address] PCP - General 04/04/21 12/12/23 London Tiwari DO [address] [place] [address] PCP - General Internal Medicine 12/13/23 documented as of this encounter
[2024-09-08 12:10] LABS: Hematocrit 37.7 % (37.0-47.0); Hemoglobin 12.2 g/dL (12.0-15.0); Immature Granulocyte Percent A 0.2 % (0-0.5); Lymphocytes Absolute Auto 2.22 K/mm3 (0.9-3.2); Mean Corpuscular HGB Conc 32.4 g/dl (32-36); Mean Corpuscular Hemoglobin 29.5 pg (26-34); Mean Corpuscular Volume 91.1 fl (80-100); Nucleated Red Blood Cells Absolute Auto 0.000 K/mm3 (0.0-0.012); Nucleated Red Blood Cells Perc 0.0 % (0.0-0.2); Platelet Count Result 239 k/mm3 (150-375); Red Blood Count 4.14 M/mm3 (4.2-5.4); White Blood Count 6.3 K/mm3 (4.5-10.0)
[2024-09-08 12:55] LABS: Free T4 Free Thyroxine 1.47 ng/dL (0.78-2.19)
[2024-09-08 13:16] LABS: Thyroid Stimulating Hormone 3.650 uIU/mL (0.465-4.680)
== END 2024-09-08 11:34 | disposition home or self-care (01) ==
PROVIDERS: PCP Internal Medicine; Visit Provider Internal Medicine
DX: E03.9 Hypothyroidism, unspecified (principal); E55.9 Vitamin D deficiency, unspecified; D72.819 Decreased white blood cell count, unspecified
CPT/HCPCS: 36415; 82306; 84439; 84443; 85025

== ENCOUNTER 2024-09-21 09:26 | Outpatient (CLI) | payer MEDICARE, OTHER, SELFPAY ==
--- NOTE | ~2024-09-21 | XR_ITS ---
EXAMINATION: XR UGI w barium swallow DATE: 09/21/2024 10:16 INDICATION: Dysphagia TECHNIQUE: The patient drank thick barium, gas-producing crystals, and thin barium. Fluoroscopic spot radiographs of the hypopharynx, esophagus, stomach and proximal small bowel were obtained. A total o f 1463 fluoroscopic images were recorded. Fluoroscopy exposure time was 2.7 minutes. Total DAP was 12 .177 mGycm^2 COMPARISON: None. FINDINGS: The pharynx is symmetric and without evidence of mass lesion or mucosal irregularity. The esophagus i s normal without mass or stricture. Esophageal motility is normal. There is a small to moderate-sized sliding-type hiatal hernia with gastroesophageal junction 4 cm above level of the diaphragm when dec ompressed and extending up to 9 cm above the diaphragm when distended. There was no gastroesophageal reflux with provocative maneuvers. The stomach and proximal small bowel are normal. Reflux of contras t from the intra-abdominal and the intrathoracic portion the stomach and subsequent gastroesophageal reflux was observed with provocative maneuvers. IMPRESSION: 1. Small to moderate-sized sliding-type hiatal hernia with gastroesophageal reflux. Reviewed, dictated and finalized at location A. IMPRESSION: 1. Small to moderate-sized sliding-type hiatal hernia with gastroesophageal ref lux.
--- OUTSIDE RECORDS SUMMARY | 2024-09-21 09:48 | XMS_ITS | Continuity of Care Document ---
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 Patient told to stop by the [facility] lab to have these drawn. DoD visit [...] told to call for an appointment at [facility] radiology department. MOP with breast CA at [...] BESYLATE (amlodipine besylate), 10 MG, TABLET, ORAL, [facility], 1000 ea. BOTTLE Active [id number] 2023 90 Pharmac y Data Transac tion Service Facilit y atorvastati n 40 mg oral tablet 90 tab(s), 0 total refill(s ), Soft Stop Discont inued 10/12/20222022 0055C-3 [facility] atorvastati n 40 mg oral tablet 90 tab(s), 0 Refill(s ), 0 total refill(s ), Soft Stop Discont inued 10/21/20232023 0055C-3 [facility] [place] atorvastati n 40 mg tablet See [...] by mouth) Ordered 2022 100.0 0055C[facility]3 [facility] CoQ10 Oral, Daily, 0 total refill(s ), Maintena nce Oral (given by mouth) Discont inued 10/21/20232023 0055C-3 [facility] fluticasone 50 mcg/inh nasal [...] [facility], 100 ea. BOTTLE Cancele d [id number] : 2023 0 Pharmac y Data Transac tion Service Facilit y HYDROCORTIS ONE (hydrocorti sone), 20 MG, TABLET, ORAL, [facility], 100 ea. BOTTLE Cancele d [id number] : 2023 0 Pharmac y Data Transac [...] Soft Stop Discont inued 10/21/20232023 0055C-3 [facility] [place] hydrocortis one 5 mg oral tablet [...] Soft Stop Discont inued 10/21/20232023 0055C-3 [facility] [place] lisinopril 30 mg oral tablet 90 tab(s), 0 total refill(s ), Soft Stop Discont inued 10/12/20222022 0055C-3 [facility] Romain lisinopril 30 mg oral tablet 90 tab(s), 0 Refill(s ), 0 total refill(s ), Soft Stop Discont inued 10/21/20232023 0055C-3 [facility] lisinopril 30 mg tablet 30 [...] Soft Stop Complet ed 10/21/20232023 0055C[facility]3 [facility]ain loratadine 10 mg oral tablet TAKE ONE TABLET BY MOUTH EVERY DAY FOR ALLERGY, # 90 EA, 2 total refill(s ), Acute Complet ed 09/04/2022 3 2022 90.0 Ambulat ory Pharmac y neomycin/po lymyxin B/dexametha sone 3.5 mg-10,000 units-1 mg/g ophthalmic ointment 3 g, 0 Refill(s ), 0 total refill(s ), Soft Stop Discont inued 10/21/20232023 0055C-[address] [place] [address] Romain oxyCODONE 5 mg oral tablet 12 EA, 0 Refill(s ), TAKE 1 TABLET BY MOUTH EVERY 6 HOURS NEEDED, 0 total refill(s ), Soft Stop Discont inued 10/21/20232023 0055C-3 [facility] OXYCODONE HCL (OXYCODONE HCL), 5MG, TABLET, ORAL, [facility], 100 ea. BOTTLE Active [id number] 2023 12 Pharmac y Data Transac [...] # 30 g, 5 total refill(s ), [facility] Ordered 4 2023 30.0 0055C-3 75th PATRICIA [place]os Premarin 0.625 mg/g vaginal cream with applicator 1 g, Vaginal, Sat/ s, place in vag nightly for 2wks, then use 2x/wk; apply small amt to post introitu s daily, # 30 g, 6 total refill(s ), [facility], Pharmacy : [facility] Vagina l (in the vagina ) Discont inued 10/21/2023 4 2023 30.0 0055C-3 [facility] PATRICIA Hoyos sertraline 50 mg oral tablet [...] Soft Stop Discont inued 10/12/20222022 [facility] Synthroid 88 mcg oral tablet 90 tab(s), 0 Refill(s ), 0 total refill(s ), Soft Stop Discont inued 10/21/20232023 0055C-3 [facility] Vitamin B12 1000 mcg oral tablet tab(s), Oral, Daily, 0 total refill(s ), Maintena nce Oral (given by mouth) Ordered 2022 0055C-3 [facility] Vitamin D3 50 mcg (2000 intl units) oral tablet tab(s), Oral, Daily, 0 total refill(s ), Maintena nce Oral (given by mouth) Ordered 2022 0055C[facility]3 [facility] zoledronic acid/mannit ol (eqv-Reclas t) 5 mg/100 mL infusion 5 mg, IV Drip (Intrave nous), Once, 0 total refill(s ), Maintena nce Intrav enous Drip Ordered 2023 0055C-3 [facility] Allergies, Adverse Reactions, Alerts Combined list of allergies from Department of Defense and Veterans Affairs facilities. It does not include entries that were removed or entered in error. Substance Category Reaction Severity Reaction type Status Date Reported Comments Source NO OUTPUT FOR NCID [id number] Drug allergy (disorder) active 06/27/2007 [employer] Romain MARTIN ([facility]) Immunizations Combined list of available immunizations from the Department of Defense and Veterans Affairs facilities. Immunization Series Date Given Administered By Site Reaction Lot Number CVX Code Drug Hedis Coordinator Status Comments Source RSV vaccine preF3, recombinant 2022 DARLENERBRUNN ER 303 complet ed Result Comment: Route: Unknown Manufactu rer: OT (SKB) 0055C-[address] [place] [address] Romain COVID-19 vaccine(Pfize r Bival 12yr+) 2022 DARLENERBRUNN ER 300 complet ed Result Comment: Route: Unknown Manufactu rer: OT (PFR) 0055C-[address] [place] [address] SARS-CoV-2 (COVID-19) mRNA-Bivalent 2021 DARLENERBRUNN ER 229 complet ed Result Comment: Route: Unknown Manufactu rer: OT (MOD) 5C-[address] [place] [address] Romain COVID Vaccine Moderna 2020 BROCKALBAUGH 207 complet ed Result Comment: Unit: Unknown Manufactu rer: () 0055C-[address] [place] [address] COVID-19, mRNA, LNP-S, PF, 100 mcg or 50 mcg dose 2020 ALUL, () Not Given COVID-19, mRNA, LNP-S, PF, 100 mcg or 50 mcg dose DoD influenza virus vaccine, unspecified 2020 DARLENERBRUNN ER 88 complet ed Result Comment: Route: Unknown Manufactu rer: OT (unk) 0055C-[address] [place] [address] influenza virus vaccine, inactivated 2020 BROCKALBAUGH 88 complet ed Result Comment: Unit: Unknown Manufactu rer: () 0055C-[address] [place] [address] Influenza vaccine, quadrivalent, adjuvanted 2020 ALUL, () Not Given Influenza vaccine, quadrival ent, adjuvante d DoD tetanus, diphtheria, acellular pertu is 2020 BROCKALBAUGH 115 complet ed Result Comment: Unit: Unknown Manufactu rer: () 0055C-[address] [place] [address] Romain Tdap 2020 ALUL, () Not Given Tdap DoD zoster vaccine, inactivated 2019 BROCKALBAUGH 187 complet ed Result Comment: Unit: Unknown Manufactu rer: () 0055C-[address] [place] [address] zoster recombinant 2019 ALUL, () Not Given [...] 13-valent conjugate (PCV13) 2015 zzLyuli mcknight Arm [id number] [employer] complet ed pneumococ josefina 13-valent conjugate (PCV13) 03/21/15 Given Ambulat ory Pharmac y pneumococcal conjugate vaccine, 13 valent 1 2015 Unknown, Provider [id number] WyElijah ([facility]) complet ed pneumococ josefina conjugate vaccine, 13 valent DoD influenza, injectable, quadrivalent- pf 2014 150 sanofi pasteur complet ed influenza , injectabl e, quadrival ent-pf 11/22/14 Given Ambulat ory Pharmac y influenza, injectable, quadrivalent- pf 2013 CA 150 complet ed Result Comment: Unit: Unknown Manufactu rer: () 0055C-3 [facility] Kenvir influenza, injectable, quadrivalent, preservative free 2013 SURESH [...] live 2010 zzLef t Arm [id number] [employer] complet ed zoster vaccine live 03/20/10 [...] 1 2007 Unknown, Provider [id number] Dawit VirdenKline (SKB) complet ed influenza virus vaccine, split virus (incl. purified surface antigen)- retired CODE DoD influenza virus vaccine, whole virus 2002 zzLef t Arm [id number] 16 sanofi pasteur complet ed influenza virus vaccine, whole virus 12/11/02 Given Ambulat ory Pharmac y tetanus-dipht h toxoids (Td) adult/adol 2002 zzLef t Arm [id number] 09 sanofi pasteur complet ed tetanus-d iphth toxoids (Td) adult/ado l 12/11/02 Given Ambulat ory Pharmac y tetanus and diphtheria toxoids, adsorbed, preservative free, for adult use (2 Lf of tetanus toxoid and 2 Lf of diphtheria toxoid) 1 2002 Unknown, Provider [id number] 09 Sanofi Pasteur ([facility]MC) complet ed tetanus and diphtheri a toxoids, adsorbed, preservat lizzy free, for adult use (2 Lf of tetanus toxoid and 2 Lf of diphtheri a toxoid) DoD influenza virus vaccine, whole virus 1 2002 Unknown, Provider [id number] 16 Sanofi Pasteur ([facility]) complet ed influenza virus vaccine, whole virus DoD influenza virus vaccine, whole virus 2000 zzLef t Arm [id number] 16 sanofi pasteur complet ed influenza virus vaccine, whole virus 01/03/01 Given Ambulat ory Pharmac y influenza virus vaccine, whole virus 1 2000 Unknown, Provider [id number] 16 Sanofi Pasteur ([facility]) complet ed influenza virus vaccine, whole virus [facility] Vital Signs Combined list of inpatient and outpatient Vital Signs from Department of Defense and Veterans Affairs, ranging from 12 months to all on record, depending upon the facility. Vital Sign Value Date Comments Source Respiratory Rate 18 br/min 10/21/2023 19:14:00 0055C-[facility] Peripheral Pulse Rate 73 bpm 10/21/2023 19:14:00 0055C-375[facility]-Romain Temperature Oral 37.0 Awa 10/21/2023 19:14:00 0055C-375th [facility]-Romain Systolic Blood Pressure 130 mm[Hg] 10/21/2023 19:14:00 [...] ADM Date DC Date Status Disposition Source [address] [place] [address] Romain MARTIN ([facility])(Sco tt [facility]) TELE CONSULT [id number] med request CAPRICE TALBERT 08/[address] [place] [address] Romain [facility]ARTIN [facility]S [facility] Blue) [address] [place] [address] Romain MARTIN [facility])(Sco tt [facility]) OUTPATIENT [id number] full physica l--NO PAP SMEAR CAPRICE TALBERT 03/01 Released w/o Limitations [address] [place] [address] Romain MARTIN [facility])(S [facility] Blue) [address] [place] [address] Romain MARTIN [facility])(Sco tt [facility] FAMRES Tm Blue) OUTPATIENT [id number] repeat pap ROB RDORIGUEZ R 03/14 Released w/o Limitations [address] [place] [address] Romain IBARRAB ([facility])(S cott [facility] FAMRES Tm Blue) [address] [place] [address] Romain IBARRAB ([facility])(Sco tt [facility] FAMRES Tm Blue) OUTPATIENT [id number] f/u anti depress ant meds YAMMARIO-MALORIE Mckeon CAPRICE 03/19 Released w/o Limitations [address] [place] [address] Romain IBARRAB ([facility])(S cott OF FAMRES Tm Blue) [address] [place] [address] Romain IBARRAB ([facility])(Sco tt [facility] FAMRES Tm Blue) TELE CONSULT [id number] med refill EFREM MORENO 06/[address] [place] [address] Romain MARTIN ([facility])(S cott [facility] FAMRES Tm Blue) [address] [place] [address] Romain IBARRAB ([facility])(Sco tt [facility] FAMRES Tm Blue) TELE CONSULT [id number] med refill OLESYA ROSARIO 11/[address] [place] [address] Romain MARTIN [facility])(S cott [facility] FAMRES Tm Blue) [address] [place] [address] Romain IBARRAB ([facility])(Sco tt [facility] FAMRES Tm Blue) OUTPATIENT [id number] repeat pap/dys plasia NORMA CISNEROS 05/24 Released w/o Limitations [address] [place] [address] Romain IBARRAB ([facility])(S cott [facility] FAMRES Tm Blue) [address] [place] [address] Romain IBARRAB ([facility])(Sco tt [facility] Fam Res Tm Green) OUTPATIENT [id number] WELL WOMAN EXAM WITH PAP MAGNOLIA CRAWFORD 07/09 Released w/o Limitations [address] [place] [address] Romain IBARRAB ([facility])(S cott [facility] Fam Res Tm Green) [address] [place] [address] Romain IBARRAB ([facility])(Sco tt [facility] Fam Res Tm Green) TELE CONSULT [id number] MAGNOLIA Fortune 07/[address] [place] [address] Romain IBARRAB ([facility])(S cott [facility] Fam Res Tm Green) [address] [place] [address] Romain IBARRAB ([facility])(Sco tt [facility] Fam Res Tm Green) TELE CONSULT [id number] MAGNOLIA SIMMONS 08/[address] [place] [address] Romain MARTIN ([facility])(S cott OF Fam Res Tm Green) [address] [place] [address] Romain MARTIN ([facility])(Sco tt [facility] FAMRES Tm Blue) TELE CONSULT [id number] Lab Results MAGNOLIA CRAWFORD 10/[address] [place] [address] Romain MARTIN ([facility])(S cott OF FAMRES Tm Blue) [address] [place] [address] Romain MARTIN ([facility])(Sco tt [facility] FAMRES Tm Blue) OUTPATIENT [id number] flu shot DARELL SNYDER Damian 01/26 Released w/o Limitations [address] [place] [address] Romain MARTIN ([facility])(S cott OF FAMRES Tm Blue) [address] [place] [address] Romain MARTIN ([facility])(Sco tt [facility] FAMRES Tm Blue) OUTPATIENT [id number] annual physica l [id number] NAIF SANDERS 12/27 Released w/o Limitations [address] [place] [address] Romain MARTNI ([facility])(S cott [facility] FAMRES Tm Blue) [address] [place] [address] Romain MARTIN ([facility])(Sco tt [facility] Fam Res Tm Green) TELE CONSULT [id number] maye wagoner ALICJA NUÑEZJESSIE 12/[address] [place] [address] Romain MARTIN ([facility])(S cott OF Fam Res Tm Green) [address] [place] [address] Romain MARTIN ([facility])(Sco tt [facility] FAMRES Tm Blue) OUTPATIENT [id number] well woman [id number] NAIF SANDERS 01/03 Released w/o Limitations [address] [place] [address] Romain MARTIN ([facility])(S cott OF FAMRES Tm Blue) [address] [place] [address] Romain MARTIN ([facility])(Sco tt [facility] FAMRES Tm Blue) TELE CONSULT [id number] Request ing order for NAIF Gtz 01/[address] [place] [address] Romain MARTIN ([facility])(S cott OF FAMRES Tm Blue) [address] [place] [address] Romain MARTIN ([facility])(Sco tt [facility] FAM[facility] Tm Blue) TELE CONSULT [id number] odiliara RICKIE Stanley 08/[address] [place] [address] Romain MARTIN ([facility])(S cott OF FAMRES Tm Blue) [address] [place] [address] Romain MARTIN ([facility])(Sco tt [facility] FAMRES Tm Blue) TELE CONSULT [id number] refills MAGNOLIA KRISHNAMURTHY 11/[address] [place] [address] Romain STACEYB [facility])(S cott OF FAMRES Tm Blue) [address] [place] [address] Romain STACEYB [facility])(Sco tt [facility] FAMRES Tm Blue) TELE CONSULT [id number] Refill - MAGNOLIA Baires 11/[address] [place] [address] Romain STACEYB [facility])(S cott OF FAMRES Tm Blue) [address] [place] [address] Romain IBARRAB [facility])(Sco tt [facility] FAMRES Tm Blue) OUTPATIENT [id number] physica l NAIF SANDERS 03/20 Released w/o Limitations [address] [place] [address] Romain IBARRAB [facility])(S cott [facility] FAMRES Tm Blue) [address] [place] [address] Romain STACEYB [facility])([facility]co tt [facility] FAMRES Tm Blue) OUTPATIENT [id number] physica l [phone] MAGNOLIA KRISHNAMURTHY 01/22 Released w/o Limitations [address] [place] [address] Romain IBARRAB [facility])(S cott [facility] FAMRES Tm Blue) [address] [place] [address] Romain STACEYB [facility])(Sco tt [facility] FAMRES Tm Blue) OUTPATIENT [id number] annual exam [id number] MAGNOLIA KRISHNAMURTHY 04/06 Released w/o Limitations [address] [place] [address] Romain IBARRAB [facility])(S cott [facility] FAMRES Tm Blue) [address] [place] [address] Romain STACEYB [facility])(Sco tt [facility] FAMRES Tm Blue) TELE CONSULT [id number] Notes Entered by: RICKIE DOUGLAS 27 Apr 2011 1338 ------- ------- ------- ------- -- Tcon for lab results Dr Fausto mcknight ph [phone] cad dmMAGNOLIA Ferrer 04/[address] [place] [address] Romain STACEYB [facility])(S cott [facility] FAMRES Tm Blue) [address] [place] [address] Romain [employer] [facility])([facility]co tt [facility] FAMRES Tm Blue) OUTPATIENT [id number] F/U thyroid concern s [phone] ARJUN LAUGHLIN 05/21 Released w/o Limitations [address] [place] [address])(S cott [facility] FAMRES Tm Blue) [address] [place] [address])(Sco tt [facility] FAMMamba Tm Blue) TELE CONSULT [id number] Notes Entered by: PIPE PALUMBO 29 Jun 2011 1137 ------- ------- ------- ------- -- Lab request /Luis mcknight/Uday.5 500/mnm MAGNOLIA KRISHNAMURTHY 06/[address] [place] [address])(S cott [facility] Outright Tm Blue) [address] [place] [address])(Sco tt [facility] Outright Tm Blue) TELE CONSULT [id number] Notes Entered by: Teto AYON 19 Jul 2011 1419 ------- ------- ------- ------- -- Lab results Fausto mcknight/cad/c MAGNOLIA Barroso 07/[address] [place] [address])(S cott [facility] FAMMamba Tm Blue) [address] [place] [address])(Sco tt [facility] Outright Tm Blue) TELE CONSULT [id number] Notes Entered by: RICKIE DOUGLAS 01 Oct 2011 1317 ------- ------- ------- ------- -- Tcon for to order lab work Dr Fausto mcknight ph [phone] cad RICKIE Serna 09/[address] [place] [address])(S cott [facility] FAMMamba Tm Blue) [address] [place] [address])(Sco tt [facility] [employer] Blue) TELE CONSULT [id number] Notes Entered by: RICKIE DOUGLAS 11 Oct 2011 1402 ------- ------- ------- ------- -- Tcon for Hep C testing Dr Fausto mcknight ph [phone] cad RICKIE Serna 10/[address] [place] [address])(S cott [facility] FAMRES Tm Blue) [address] [place] [address])(Sco tt [facility] Blue) TELE CONSULT [id number] Notes Entered by: Teto AYON 05 Mar 2012 1310 ------- ------- ------- ------- -- Lab order/S eileen Silverman514 5500 ROSALIND MARTINEZ 03/[address] [place] [address])(S cott [facility] FAMRES Tm Blue) [address] [place] [address])(Sco tt [facility] Tm Blue) TELE CONSULT [id number] Notes Entered by: NANCY ARGUELLO 31 Mar 2012 1425 ------- ------- ------- ------- -- Lab results request -Eber shirley/[phone] ROSALIND MARTINEZ 03/[address] [place] [address])(S cott [facility] FAMRES Tm Blue) [address] [place] [address])(Sco tt [facility] Tm Blue) OUTPATIENT [id number] Pt w/abnor mal lab request ed an appt w/pcm. MAGNOLIA KRISHNAMURTHY 04/17 Released w/o Limitations [address] [place] [address])(S cott [facility] FAMRES Tm Blue) [address] [place] [address])(Sco tt [facility] Tm Blue) TELE CONSULT [id number] Notes Entered by: ANUSHA DO 26 Jun 2012 1354 ------- ------- ------- ------- -- Lab results Fausto mcknight leave message if no answer NETO GUILLAUME 06/[address] [place] [address])(S cott [facility] FAMRES Tm Blue) [address] [place] [address])(Sco tt [facility] FAMRES Tm Blue) TELE CONSULT [id number] Notes Entered by: NANCY ARGUELLO 07 Oct 2012 1412 ------- ------- ------- ------- -- Lab request for medicat ion rizwana/ Mustapha / NEHAL DAVIS 10/[address] [place] [address] Romain [facility])(S [facility] FAMRES Tm Blue) [address] [place] [address])(Sco tt [facility] Tm Blue) TELE CONSULT [id number] Notes Entered by: AUBREY IGLESIAS 13 Oct 2012 1203 ------- ------- ------- ------- -- Lab results AUBREY IGLESIAS 10/[address] [place] [address])([facility] [address] [place] [address])([facility] Tm Blue) TELE CONSULT [id number] Notes Entered by: AUBREY IGLESIAS 13 Mar 2013 0755 ------- ------- ------- ------- -- Micare Request AUBREY IGLESIAS 03/[address] [place] [address] Romain [facility] [address] [place] [address])(Nmo tt [facility] Fam Res Tm Gold) TELE CONSULT [id number] med refjayme Cody VIVI PALOMARES 03/16 Referred for Appointment [address] [place] [address] Romain [facility])(S [facility] Fam Res Tm Gold) [address] [place] [address])(Sco tt [facility] Fam Res Tm Gold) TELE CONSULT [id number] Notes Entered by: RED CODY 29 Mar 2014 1318 ------- ------- ------- ------- -- Renew RED Kinney 03/[address] [place] [address] Romain [facility])(S [facility] Fam Res Tm Gold) [address] [place] [address])(Sco tt [facility] Fam Res Tm Gold) TELE CONSULT [id number] Notes Entered by: CAROL AGUIAR 04 Nov 2014 1439 ------- ------- ------- ------- -- Gastroe nterolo gy ReferGRACE Vogt 11/04 Referred for Appointment [address] [place] [address] Romain [facility])(S cott [facility] Fam Res Tm Gold) [address] [place] [address] Romain [facility])(Sco tt [facility] Fam Res Tm Gold) TELE CONSULT [id number] Notes Entered by: Fay SANTOS 13 Dec 2014 1143 ------- ------- ------- ------- -- [facility] Loren/Savanna / Escobar / ROSA MARTINEZ 12/[address] [place] [address] Romain [facility])(S cott [facility] [facility] Fam Res Tm Gold) [address] [place] [address] Romain [facility])(Sco tt [facility] FAMRES Tm Blue) TELE CONSULT [id number] Notes Entered by: RICKIE DOUGLAS 14 Dec 2014 0732 ------- ------- ------- ------- -- Network results - Urgent Care 015 CELESTE BARRIOS 12/[address] [place] [address])(S [facility] FAMRES Tm Blue) [address] [place] [address])(Sco tt [facility] [place] Fam Res Tm Gold) TELE CONSULT [id number] Notes Entered by: SATYA BERRIOS 22 Dec 2014 1325 ------- ------- ------- ------- -- DAVE Howard 12/22 Referred for Appointment [address] [place] [address])(S [facility] Fam Res Tm Gold) [address] [place] [address] Romain [facility])(Sco tt [facility] Fam Res Tm Gold) OUTPATIENT [id number] urgent care, [facility], r RED Gray 12/28 Released w/o Limitations [address] [place] [address])([facility] Fam Res Tm Gold) [address] [place] [address] Romain [employer] [facility])([facility] Fam Res Tm Gold) TELE CONSULT [id number] Notes Entered by: MARY OCAMPO 28 Dec 2014 1448 ------- ------- ------- ------- -- Network Results -GASTRO ENTEROL OGY 12/28/14 RED CODY 12/[address] [place] [address] Romain [employer] [facility])([facility] Fam Res Tm Gold) [address] [place] [address] Romain [employer] [facility])(Electronic Calibration Technician ecology) OUTPATIENT [id number] pap exam [phone] JAYNE BLAKE 01/18 Released w/o Limitations [address] [place] [address] Romain [facility])(G ynecolo gy) [address] [place] [address] [employer]ain [employer] [facility])(Electronic Calibration Technician ecology) TELE CONSULT [id number] Notes Entered by: KARLENE BLAKE 19 Jan 2015 0757 ------- ------- ------- ------- -- results BRUNO ROSENTHAL 01/[address] [place] [address] Romain [facility])(G ynecolo gy) [address] [place] [address] Romain B [facility])(Ob/ Electronic Calibration Technician) TELE CONSULT [id number] BRUNO ROSENTHAL 01/[address] [place] [address] Romain [facility])(O b/Electronic Calibration Technician) [address] [place] [address] Romain [facility])(Electronic Calibration Technician ecology) TELE CONSULT [id number] Notes Entered by: KARLENE BLAKE 31 Jan 2015 0808 ------- ------- ------- ------- -- results BRUNO ROSENTHAL 01/[address] [place] [address] Romain [facility])(G ynecolo gy) [address] [place] [address] Romain B [facility])(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 Fam Res Tm Gold) TELE CONSULT [id number] Notes Entered by: PIPE PALUMBO 10 Feb 2015 1418 ------- ------- ------- ------- -- Lab results /escobar / WILL WOMACK 02/10 Released w/o Limitations [address] [place] [address] Group [employer]ain B [facility])([facility] Fam Res Tm Gold) [address] [place] [address] [employer]ain [employer] [facility])([facility] Fam Res Tm Gold) TELE CONSULT [id number] Notes Entered by: RICHARDSON BELCHER 28 Feb 2015 1322 ------- ------- ------- ------- -- High Blood pressur e update/ Escobar/ [id number] DAVE BERRIOS 02/28 Referred for Appointment [address] [place] [address] Group [employer] B [facility])([facility] Fam Res Tm Gold) [address] [place] [address] [employer]ain [employer] [facility])(Electronic Calibration Technician ecology) TELE CONSULT [id number] Notes Entered by: MADELIN DURAN 02 Mar 2015 0916 ------- ------- ------- ------- -- Scanned Bilater al breast MRI into JAYNE HUDSON Jayce 03/[address] [place] [address] Romain B [facility])(G ynecolo gy) [address] [place] [address] [employer] [employer] [facility])([facility] Fam Res Tm Red) TELE CONSULT [id number] Notes Entered by: WILL WOMACK 03 Mar 2015 1709 ------- ------- ------- ------- -- CT results WILL WOMACK 03/03 Referred for Appointment [address] [place] [address] Group [employer] [facility])([facility] Fam Res Tm Red) [address] [place] [address] Romain B [facility])(Electronic Calibration Technician ecology) TELE CONSULT [id number] Notes Entered by: MARY OCAMPO 04 Mar 2015 0938 ------- ------- ------- ------- -- Network Results -RADIOL OGY 5 JAYNE JAFFE 03/[address] [place] [address])(G ynecolo gy) [address] [place] [address])(Sco tt [facility] Fam Res Tm Gold) OUTPATIENT [id number] fu bone density [phone] cyst on right kidney, blood pressur e RED Vaughan 03/21 Released w/o Limitations [address] [place], [place] [address]B [facility])(S cott [facility] Fam Res Tm Gold) [address] [place] [address])(Electronic Calibration Technician ecology) TELE CONSULT [id number] Notes Entered by: KARLENE BLAKE 19 Apr 2015 0928 ------- ------- ------- ------- -- results DENISE LUJAN 04/[address] [place] [address])(G ynecolo gy) [address] [place] [address])(Med ication Refill Clinic) TELE CONSULT [id number] Notes Entered by: RADHIKA LORENZO 28 Sep 2016 1320 ------- ------- ------- ------- -- Med Renewal /Kelvin/ [phone] 0/clm DAVE BERRIOS 09/28 Referred for Appointment [address] [place] [address])(Rochelle garcias on Refill [facility]) [address] [place] [address])(Electronic Calibration Technician ecology) OUTPATIENT [id number] annual wwe - [phone] JAYNE BLAKE 10/05 Released w/o Limitations [address] [place] [address])(G ynecolo gy) [address] [place] [address])(Electronic Calibration Technician ecology) TELE CONSULT [id number] Notes Entered by: ABDULLAHI GONZALEZ 05 Oct 2016 1436 ------- ------- ------- ------- -- Lab Results JAIR CHIN TOMAS 10/05 Referred for Appointment [employer] [facility])(G ynecolo gy) [facility]ain [facility] ([facility])(Electronic Calibration Technician ecology) TELE CONSULT [id number] Notes Entered by: ABDULLAHI GONZALEZ 08 Oct 2016 1319 ------- ------- ------- ------- -- Lab Results JAIR CHIN TOMAS 10/08 Referred for Appointment [employer] Romain [facility] ([facility])(G ynecoconnor gy) [facility] [employer] [facility])(Ob/ Electronic Calibration Technician) TELE CONSULT [id number] Notes Entered by: YANELI MCNEAL 12 Oct 2016 0754 ------- ------- ------- ------- -- Normal lab SUSY MCNEAL 10/12 [facility] [employer] [employer] ([facility])(O b/Electronic Calibration Technician) [facility] [employer] ([facility])(Nmo tt [facility] FAMRES Tm Blue) TELE CONSULT [id number] Notes Entered by: SUKUMAR PARKER 12 Oct 2016 1250 ------- ------- ------- ------- -- Lab Results /Kelvin/ DAVE BERRIOS 10/12 Referred for Appointment [facility] Romain [employer] ([facility])(S cott [facility] FAMRES Tm Blue) [facility] [employer] ([facility])(Nmo tt [facility] FAMRES Tm Blue) TELE CONSULT [id number] Notes Entered by: GEORGINA MELENDEZ 18 Oct 2016 0849 ------- ------- ------- ------- -- SABRA Marte 10/18 [facility] [employer] ([facility])(S cott [facility] FAMRES Tm Blue) [facility] [employer] [employer] [facility])(Sco tt [facility] FAMRES Tm Blue) OUTPATIENT [id number] fu labs, dyslipi demia YESSICA ROSARIO 10/24 Released w/o Limitations [address] [place] [address] Romain [employer] [facility])(S cott [facility] FAMRES Tm Blue) [address] [place] [address] Romain [facility])(Electronic Calibration Technician ecology) TELE CONSULT [id number] Notes Entered by: MARY OCAMPO 01 Nov 2016 1029 ------- ------- ------- ------- -- Network Results -RADIOL OGY 10/16/16 SCREEN MAMMO JAYNE JAFFE 11/[address] [place] [address] Romain [employer] [facility])(G ynecolo gy) [address] [place] [address] Romain [employer] [facility])(Sco tt [facility] FAMRES Tm Blue) OUTPATIENT [id number] skin lesions YESSICA ROSARIO 11/05 Released w/o Limitations [address] [place] [address] Romain [employer] [facility])(S cott [facility] FAMRES Tm Blue) [address] [place] [address] Romain [facility] [facility])(Sco tt [facility] FAMRES Tm Blue) TELE CONSULT [id number] Notes Entered by: Sofia BRUMFIELD 13 Nov 2016 0755 ------- ------- ------- ------- -- Express scripts (Kelvin) YESSICA ROSARIO 11/[address] [place] [address] Romain [facility] [facility])(S cott [facility] FAMRES Tm Blue) [address] [place] [address] Romain [facility])(Sco tt [facility] FAMRES Tm Blue) TELE CONSULT [id number] Notes Entered by: SUKUMAR PARKER 21 Nov 2016 1046 ------- ------- ------- ------- -- Med Renewal to [employer] /Kelvin/ YESSICA ROSARIO 11/[address] [place] [address] Romain [facility])([facility] FAMRES Tm Blue) [address] [place] [address] Romain Sofia [facility])([facility] Nerve.comRES Tm Blue) TELE CONSULT [id number] Notes Entered by: RADHIKA LORENZO 07 Dec 2016 1542 ------- ------- ------- ------- -- Express Scripts /Kelvin/ /c YESSICA Wen 12/[address] [place] [address])(S [facility] Tm Blue) [address] [place] [address])([facility] FAMRES Tm Blue) TELE CONSULT [id number] Notes Entered by: SHAYLA MALCOLM 07 Mar 2017 0806 ------- ------- ------- ------- -- Express script MIGUEL Rodriguez 03/[address] [place] [address])([facility] Tm Blue) [address] [place] [address])(Electronic Calibration Technician ecology) TELE CONSULT [id number] Notes Entered by: Damian RAMOS 28 Mar 2017 1636 ------- ------- ------- ------- -- Referra for breast MRI and bone density JOLANTA RAMOS 03/[address] [place] [address])(G alejo gy) [address] [place] [address])(Electronic Calibration Technician ecology) TELE CONSULT [id number] Notes Entered by: KARLENE BLAKE 03 Apr 2017 1719 ------- ------- ------- ------- -- results JAIR CHIN 04/03 Referred for Appointment [address] [place] [address])(G ybroderickcoconnor gy) [address] [place] [address])(Electronic Calibration Technician ecology) TELE CONSULT [id number] Notes Entered by: KARLENE BLAKE 01 May 2017 0758 ------- ------- ------- ------- -- results JAIR CHIN 05/01 Referred for Appointment [employer] ([facility])(G ynecolo gy) [employer] ([facility])(Sco tt [facility] FAMRES Tm Blue) OUTPATIENT [id number] cough continu e [id number] ALVERTODELL JESSEE MELISSA 05/06 Released w/o Limitations [employer] ([facility] [employer] ([facility])(Electronic Calibration Technician ecology) OUTPATIENT [id number] ww JAYNE BLAKE 10/01 Released w/o Limitations [employer] ([facility])(G ynecolo gy) [facility] [employer] ([facility])(Electronic Calibration Technician ecology) TELE CONSULT [id number] Notes Entered by: KARLENE BLAKE 14 Nov 2017 1722 ------- ------- ------- ------- -- SUSY Bhagat 11/14 Released w/o Limitations [employer] ([facility])(G ynecolo gy) [facility] [employer] ([facility])(Electronic Calibration Technician ecology) TELE CONSULT [id number] Notes Entered by: Damian RAMOS 04 Apr 2018 1604 ------- ------- ------- ------- -- JOLANTA Javed 04/04 Referred for Appointment [employer] ([facility])(G ynecolo gy) [facility] [employer] ([facility])(Electronic Calibration Technician ecology) TELE CONSULT [id number] Notes Entered by: Amber DA SILVA 23 Apr 2018 0825 ------- ------- ------- ------- -- Physici an request ed T-CON for Network Results -Radiol ogy 019 SUSY DINH 04/23 Referred for Appointment [employer] ([facility])(G ynecolo gy) [address] [place] [address] Romain [facility])(Electronic Calibration Technician ecology) TELE CONSULT [id number] Notes Entered by: KARLENE BLAKE 28 Jul 2018 1305 ------- ------- ------- ------- -- Rf request SUSY MCNEAL 07/28 Referred for Appointment [address] [place] [address] Romain [facility])(G ynecoconnor gy) [address] [place] [address] [facility]ain [facility])(Sco tt [facility] FAMRES Tm Blue) OUTPATIENT [id number] discuss christy g BP medicat ion ZEKE FRAGA 09/19 Released w/o Limitations [address] [place] [address] Romain B [facility])(S cott [facility] FAMRES Tm Blue) [address] [place] [address] Romain [facility])(Sco tt [facility] FAMRES Tm Blue) TELE CONSULT [id number] Notes Entered by: PIPE PALUMBO 29 Sep 2018 0942 ------- ------- ------- ------- -- Low pulse concern s/Thais n/ MELYSSA Vasquez 09/29 Released to Self Care [address] [place] [address] [facility]S cott [facility] FAMRES Tm Blue) [address] [place] [address] Romain [facility])(Sco tt [facility] FAMRES Tm Blue) OUTPATIENT [id number] F/U ZEKE FRAGA 10/02 Released w/o Limitations [address] [place] [address] Romain [employer] [facility])(S cott [facility] FAMRES Tm Blue) [address] [place] [address] Romain [facility])(Electronic Calibration Technician ecology) OUTPATIENT [id number] WWE/618 .[phone] 00 JAYNE BLAKE 10/13 Released w/o Limitations [address] [place] [address] Romain [employer] [facility])(G ynecolo gy) [address] [place] [address] Romain B [facility])(Sco tt [facility] FAMRES Tm Blue) OUTPATIENT [id number] discuss medicat ion BECCA ESPANA 10/30 Released w/o Limitations [address] [place] [address] Romain [facility])(S [facility] FAMRES Tm Blue) [address] [place] [address] Romain [facility])(Electronic Calibration Technician ecology) TELE CONSULT [id number] Notes Entered by: MADELIN DURAN 05 Nov 2018 0825 ------- ------- ------- ------- -- message for SUSY Abel 11/05 Medication Refill Forwarded [address] [place] [address] Romain [facility])(G alejo gy) [address] [place] [address] Romain [facility])(Ob/ Electronic Calibration Technician) TELE CONSULT [id number] Notes Entered by: KAYLA VALENTIN 20 Nov 2018 1342 ------- ------- ------- ------- -- Network results Radiolo gy 019 SUSY SIDDIQUI 11/20 Released to Self Care [address] [place] [address] Romain [facility])(O b/Electronic Calibration Technician) [address] [place] [address] Romain [facility])(Sco tt [facility] Fam Res Tm Green) TELE CONSULT [id number] Notes Entered by: MERLYN SOLARES 28 Jan 2019 1021 ------- ------- ------- ------- -- Prescri ption Renewal Request HESHAM SULLIVAN 01/28 Medication Refill Forwarded [address] [place] [address] Romain [facility])([facility] Fam Res Tm Green) [address] [place] [address])(Sco tt [facility] FAMRES Tm Blue) OUTPATIENT [id number] f/u hyperal dostero ZEKE Degroot 02/12 Released w/o Limitations [address] [place] [address])([facility] FAMRES Tm Blue) [address] [place] [address])(Electronic Calibration Technician ecology) TELE CONSULT [id number] Notes Entered by: Damian RAMOS 28 Apr 2019 1143 ------- ------- ------- ------- -- breast MRI referra horace PRUITTJOLANTA HARDIN LAKEISHA 04/27 Referred for Appointment [address] [place] [address] Group [employer] [facility])(G ynecolo gy) [address] [place] [address] [employer] [facility])(Ob/ Electronic Calibration Technician) TELE CONSULT [id number] Notes Entered by: Fay JACOBO 14 May 2019 1037 ------- ------- ------- ------- -- Network results Radiolo gy 020 SUSY MARES 05/13 Released to [facility] Care [facility] [employer] ([facility])(O b/Electronic Calibration Technician) [address] [place] [address] [employer] [facility])(Electronic Calibration Technician ecology) TELE CONSULT [id number] Notes Entered by: Amber DA SILVA 20 Jan 2020 0943 ------- ------- ------- ------- -- Network results Radiolo gy 020 SANNA GOETZ 01/19 [facility] [employer] [facility])(G ynecolo gy) [address] [place] [address] [employer] [facility])([facility] Blue) OUTPATIENT [id number] Virtual - Med Renewal ZEKE FRAGA 01/31 Released w/o Limitations [facility] [employer] ([facility])(S cott [facility] Blue) [facility] [employer] [facility])(Electronic Calibration Technician ecology) OUTPATIENT [id number] WWE JAYNE BLAKE 06/22 Released w/o Limitations [facility] [employer] ([facility])(G ynecolo gy) [facility] [employer] ([facility])(Ob/ Electronic Calibration Technician) TELE CONSULT [id number] REX BRIGHT 07/27 Other Not Elsewhere Classified [facility] [employer] ([facility])(O b/Electronic Calibration Technician) [facility] [employer] ([facility])(Electronic Calibration Technician ecology) TELE CONSULT [id number] Notes Entered by: CONNOR WU 22 Nov 2020 1115 ------- ------- ------- ------- -- Med NIKOLAS Mims ALL 11/22 Other Not Elsewhere Classified [facility])(G ynecolo gy) [address] [place] [address])(Electronic Calibration Technician ecology) OUTPATIENT [id number] Lower Pelvic Pain JAYNE BLAKE 03/07 Released w/o Limitations [address] [place] [address])(G ynecolo gy) [address] [place] [address])(Electronic Calibration Technician ecology) TELE CONSULT [id number] Notes Entered by: KARLENE BLAKE 21 Mar 2021 0832 ------- ------- ------- ------- -- results DENISE LUJAN 03/21 Released to Self Care [address] [place] [address])(G ynecolo gy) [address] [place] [address])(Electronic Calibration Technician ecology) TELE CONSULT [id number] Notes Entered by: KARY PARSON 11 Apr 2021 1457 ------- ------- ------- ------- -- [place] d into [facility] DENISE LUJAN 04/11 Released to Self Care [address] [place] [address])(G ynecolo gy) [address] [place] [address])(Electronic Calibration Technician ecology) TELE CONSULT [id number] Notes Entered by: DENISE LUJAN 09 Aug 2021 1441 ------- ------- ------- ------- -- appt DENISE LUJAN 08/09 Released to Self Care [address] [place] [address])(G ynecolo gy) [address] [place] [address])(Electronic Calibration Technician ecology) TELE CONSULT [id number] Notes Entered by: DENISE LUJAN 17 Aug 2021 1348 ------- ------- ------- ------- -- Appt DENISE LUJAN 08/17 Referred for Appointment [address] [place] [address])( alejo gy) [address] [place] [address])(Electronic Calibration Technician ecology) OUTPATIENT [id number] [facility] JAYNE BLAKE 09/04 Released w/o Limitations [address] [place] [address])( gunnarpatricia gy) [address] [place] [address])(Electronic Calibration Technician ecology) TELE CONSULT [id number] Notes Entered by: DENISE LUJAN 13 Sep 2021 1403 ------- ------- ------- ------- -- order for testing DENISE LUJAN 09/13 Referred for Appointment [address] [place] [address])( alejo gy) [address] [place] [address])(Electronic Calibration Technician ecology) TELE CONSULT [id number] Notes Entered by: DENISE LUJAN 15 Sep 2021 1412 ------- ------- ------- ------- -- breast testing DENISE LUJAN 09/15 Referred for Appointment [address] [place] [address])( alejo gy) [address] [place] [address])(Electronic Calibration Technician ecology) TELE CONSULT [id number] Notes Entered by: SUZAN RETANA 25 Dec 2021 1611 ------- ------- ------- ------- -- DENISE CORONEL 12/25 Referred for Appointment [address] [place] [address])(Valentina dhillon gy) [id number] [facility] [id number] Obesity , unspeci fied,Mario dy mass index [...] [facility]ain 0055C-375 [facility] Between Visit [id number] 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 12/12 Discharge Disposition: Home or Self Care 0055C-[address] [facility] [facility] 0055C-[facility] Between Visit [id number] 02/13 Discharge Disposition: Home or Self Care 0055C-[address] [facility] 0055A-375 [facility] Outside Documentat ion Only [id number] 07/31 Discharge Disposition: Home or Self Care [...] Non-Physician Phone Call To Patient/Provider Brief (5-10min) [id number] 09/29/19 17 YESSICA ROSARIO [facility] Screening papanicolaou smear; obtaining, preparing and conveyance of cervical or vaginal smear to laboratory 01/19/20 15 JAYNE BLAKE [facility] Non-Physician Phone Call To Patient/Provider Brief (5-10min) Non-Physician Phone Call To Patient/Provider Brief (5-10min) [id number] 12/23/19 15 DAVE BERRIOS [facility] Non-Physician Phone Call To Patient/Provider Brief (5-10min) Non-Physician Phone Call To Patient/Provider Brief (5-10min) [id number] 12/14/19 15 ROSA MARTINEZ [facility] Non-Physician Phone Call To Patient/Provider Brief (5-10min) Non-Physician Phone Call To Patient/Provider Brief (5-10min) [id number] 11/05/19 15 GRACE AGUIAR [facility] Non-Physician Phone Call To Patient/Provider Brief (5-10min) Non-Physician Phone Call To Patient/Provider Brief (5-10min) [id number] 03/17/19 15 VIVI PALOMARES [facility] Non-Physician Phone Call To Pt/Provider Intermed (11-20 min) Non-Physician Phone Call To Pt/Provider Intermed (11-20 min) [id number] 10/11/19 12 RICKIE LOCKHART [facility] Non-Physician Phone Call To Pt/Provider Intermed (11-20 min) Non-Physician Phone Call To Pt/Provider Intermed (11-20 min) [id number] 10/01/19 12 RICKIE LOCKHART [facility] Non-Physician Phone Call To Patient/Provider Brief (5-10min) Non-Physician Phone Call To Patient/Provider Brief (5-10min) [id number] 05/15/19 12 RICKIE LOCKHART [facility] Screening papanicolaou smear; obtaining, preparing and conveyance of cervical or vaginal smear to laboratory 04/06/19 12 VANCE KRISHNAMURTHY [facility] Non-Physician Phone Call To Patient/Provider Brief (5-10min) Non-Physician Phone Call To Patient/Provider Brief (5-10min) [id number] 08/23/19 10 RICKIE LOCKHART [facility] Non-Physician Phone Call To Patient/Provider Brief (5-10min) Non-Physician Phone Call To Patient/Provider Brief (5-10min) [id number] 01/20/20 09 NAIF SANDERS [facility] Screening papanicolaou smear; obtaining, preparing and conveyance of cervical or vaginal smear to laboratory 01/04/20 09 NAIF SANDERS Influenza Split Virus Vaccine Age 3+ Years Intramuscular 01/27/20 08 DARELL SNYDER [facility] Immunization Administration One Vaccine Immunization Administration One Vaccine [id number] 01/27/20 08 DARELL SNYDER [facility] Vaginal Pap Smear Vaginal Pap Smear [id number] 07/09 08 VANCE CRAWFORD [facility] Screening papanicolaou smear; obtaining, preparing and conveyance of cervical or vaginal smear to laboratory 05/25/19 07 NORMA CISNEROS [facility] Cervical Pap Smear Cervical Pap Smear [id number] 06 ROB RODRIGUEZ [facility] TELE ASSESS & [...] HR/SOON APT;5-10 MIN MED DIS 04/27/19 12 [facility] SCREENING PAPANICOLAOU SMEAR; OBTAINING, PREPARING AND CONVEYANCE [...] VAGINAL, UP TO THREE SMEARS; SCREENING BY RUBBER PRESS TENDER UNDER PHYSICIAN SUPERVISION 07/10/19 08 [facility] SCREENING PAPANICOLAOU SMEAR; OBTAINING, PREPARING AND CONVEYANCE OF CERVICAL OR VAGINAL SMEAR TO LABORATORY 05/25/19 07 [facility] CYTOPATHOLOGY, SMEARS, CERVICAL OR VAGINAL, UP TO THREE SMEARS; SCREENING BY RUBBER PRESS TENDER UNDER PHYSICIAN SUPERVISION 03/14/19 06 [facility] Social [...] section is an empty social history section. [facility] Assessment and Plan Combined list of future care activities from Department of Defense and Veterans Affairs facilities (e.g., assessment and plan notes, appointments, orders, and referrals). Additional future care activities may be listed in the Plan of Care section. 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 6. B MA 30.0 to 30.9 Pt questions addressed and written discharge instructions were provided to the patient. [facility] Extracted from:Title: WWE/stress inc [...] serving sizes can be found at h ttps://www.iWelcomemyplate.gov/.& #160; T hese amounts are appropriate for [...] symptoms in breast MRI referral placed; [facility] to scheduleafter Ordered: Referral [...] to post... [facility] 09/21/2024 [id number] Functional Status Combined list of recent functional and cognitive assessments recorded at Department of Defense and Veterans Affairs (VA).VA Functional [place] Measurement (FIM) Scale: 1 = Total Assistance (Subject = 0% +), 2 = Maximal Assistance (Subject = 25% +), 3 = Moderate Assistance (Subject = 50% +), 4 = Minimal Assistance (Subject = 75% +), 5 = Supervision, 6 = Modified Tunica (Device), 7 = Complete Tunica (Timely, Safely). Assessment Date/Time Source Assessment Type Assessment Skill Assessment Score Assessment Details No data available for this section
== END 2024-09-21 09:27 | disposition home or self-care (01) ==
PROVIDERS: PCP Internal Medicine; Visit Provider Internal Medicine
DX: K44.9 Diaphragmatic hernia without obstruction or gangrene (principal); K21.9 Gastro-esophageal reflux disease without esophagitis; R13.10 Dysphagia, unspecified
CPT/HCPCS: 74240

== ENCOUNTER 2025-02-13 10:20 | Outpatient (CLI) | payer MEDICARE, OTHER, SELFPAY ==
--- OUTSIDE RECORDS SUMMARY | 2025-02-13 10:22 | XMS_ITS | Clinical Summary ---
Author Organization [facility] Address [address] [place] [id number] Care Team Providers Care Health Education Teacher Name Role Phone Keyur Can PA-C Primary Care Provider [phone] Emilia Rodriguez METAL GRADER Unavailable [phone] Social History Tobacco Use Types Packs/Day Years [...] 2024 11/19/2023, 05/28/2023, 11/22/2022, Additional history exists Influenza Adult (#1) 2024 11/25/2020, 12/04/2019, 11/19/2018, Additional history exists Mammogram Screening 06/19/2025 06/20/2023, 06/18/2022, 04/11/2021, Additional history exists DTaP, Tdap and Td Vaccines (3 - Td or Tdap) 03/15/2030 03/15/2020, 02/20/2010, 12/11/2002 Pneumococcal Vaccine: 50+ Years Completed 09/07/2016, 03/21/2015 Zoster Vaccines Completed 01/27/2020, 10/26, 10/29/2019, Additional history exists RSV Immunization or 60+ Years Completed 10/31/2022 Dexa Scan (General) Completed 03/26/2023, 03/26/2023, 09/21/2021, Additional history exists Hepatitis A Vaccines Aged Out No long er eligible based on patient's age to complete this topic Meningococcal B Vaccine Aged Out No l onger eligible based on patient's age to complete this topic Meningococcal Vaccine Aged Out No gurpreet demetrius eligible based on patient's age to complete this topic RSV Immunizations Under 20 Months Aged Out No longer eligible based on patient's age to complete this topic Insurance MEDICARE [facility] Care Teams Health Education Teacher Relationship Specialty Start Date End Date Keyur Can PA-C [address] [facility] [address] [place] [address] PCP - General PHYSICIAN FURNACE PACKER 11/28/22 Emilia Rodriguez NP [address] [place] [address] [facility] 12/04/23
--- OUTSIDE RECORDS SUMMARY | 2025-02-13 10:22 | XMS_ITS | Encounter Summary ---
Author Organization [facility] Health Address [address] [place] [address] Care Team Providers Care Database Engineer Name Role Phone Freeman, [facility] Primary Care Provider [phone] Primary Care Prov ider Keyur Can PA-C Primary Care Provide r London Tiwari DO Primary Care Provider [phone] Reason for Visit * Reason Onset Date Comments MEDICATION REFILL 08/21/2017 Encounter Details Date Type Department Care Team (Late st Contact Info) Description 08/21/2017 Refill [facility] [address] [place] [address] Antonio Horner MD [address] [place] [address] MEDICATION REFILL Social History Tobacco Use Types Packs/Day Years Used Date Smoking Tobacco: Former Cigarettes 0 Q uit: 11/25/1984 Smokeless Tobacco: Never Alcohol Use Standard Drinks/Week Comments Yes 1.7 (1 standard drink = 0.6 oz p ure alcohol) Comments No Sex and Gender Information Value Date Recorded Sex Assigned at Female 11/29/2023 3:05 PM CDT Legal Sex Female 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
--- OUTSIDE RECORDS SUMMARY | 2025-02-13 10:23 | XMS_ITS | Clinical Summary ---
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 This disclosure is being madepursuant to the Care Everywhere program and may not contain all information available regarding this patient. Last updated 17.[facility] Allergies No known active allergies Medications * Be aware that medications may not be up to date on this document. Alwaysverify current medications with the patient. 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 No 07/25/2023 Comments No Sex and Gender Information Value Date Recorded Sex Assigned at Female 11/29/2023 3:05 PM CDT Legal Sex Female 5:24 PM APPAREL PATTERNMAKER Gender Identity Female 11/29/2023 3:05 PM CDT Sexual Orientation Not on file Last Filed Vital Signs Vital Sign Reading Time Taken Comments Blood Pressure 136/80 02/27/2024 8:43 AM APPAREL PATTERNMAKER Pulse 74 02/27/2024 8:43 AM APPAREL PATTERNMAKER Temperature 36.7 C (98 F) 12/18/2023 8:37 AM CDT Respiratory Rate 20 12/18/2023 8:37 AM CDT Oxygen Saturation 93% 02/27/2024 8:43 AM APPAREL PATTERNMAKER Inhaled Oxygen Concentration - - Weight 84.8 kg (187 lb) 02/27/2024 8:43 AM APPAREL PATTERNMAKER Height 170.2 cm (5' 7) 02/27/2024 8:43 AM APPAREL PATTERNMAKER Body Mass Index 29.29 02/27/2024 8:43 AM APPAREL PATTERNMAKER Plan of Treatment Health Maintenance Due Date [...] - Td or Tdap) 02/21/2020 02/20/2010, 12/11/2002 DEPRESSION SCREENING 02/26/2024 05/29/2022 COVID-19 VACCINE ( season) 2024 11/22/2022, 06/22/2022, 01/16/2022, Additional history exists INFLUENZA VACCINE (#1) 2024 , 12/06/2021, 11/25/2020, Additional history exists Respiratory Syncytial [...] Procedure Name Priority Date/Time Associated Diagnosis Comments DEXA BONE DENSITY AXIAL SKELETON Routine 04/28/2024 8:50 AM APPAREL PATTERNMAKER Age-related osteoporosis without current pathological fracture COMPREHENSIVE METABOLIC PANEL Routine 04/28/2024 8:07 AM APPAREL PATTERNMAKER Adrenal insufficiency from Last 3 Months or Most Recently Relevant to Health Maintenance Results * BONE DENSITY AXIAL SKELETON(1OR MORE SITES)[id number] (04/28/2024 8:50 AM APPAREL PATTERNMAKER) Anatomical Region Laterality Modality Other 04/28/2024 8:56 AM APPAREL PATTERNMAKER Narrative 04/28/2024 9:13 AM APPAREL PATTERNMAKER PROCEDURE: DEXA BONE DENSITY AXIAL SKELETON DATE/TIME [...] below > Dictated by Casimiro Andrew MD (Presentation Designer) 04/28/2024 8:56 AM Yovany Martinez DO have personally reviewed and interpreted this [...] below > Dictated by Casimiro Andrew MD (Presentation Designer) 04/28/2024 8:56 AM IYovany DO have personally reviewed and interpreted this examination/study. > Interpreting Provider: Yovany Coelho DO on 04/28/2024 9:13 AM Mohan Sanchez MD DEXA ORDERABLES Final Result * (ABNORMAL) COMPREHENSIVE METABOLIC PANEL (04/28/2024 8:07 AM APPAREL PATTERNMAKER) [facility] BUN 11 7 - 26 mg/dL 04/28/2024 9:49 AM [facility] Creatinine 0.83 0.56 - 0.96 mg/dL 04/28/2024 9:49 AM [facility] Sodium 139 136 - 145 mmol/L 04/28/2024 9:49 AM [facility] Potassium 4.5 3.5 - 4.5 mmol/L 04/28/2024 9:49 AM [facility] Chloride 105 98 - 107 mmol/L 04/28/2024 9:49 AM [facility] CO2 22 22 - 29 mmol/L 04/28/2024 9:49 AM [facility] Glucose 99 70 - 99 mg/dL 04/28/2024 9:49 AM [facility] Calcium 9.5 8.4 - 10.2 mg/dL 04/28/2024 9:49 AM [facility] Protein Total 7.5 6.0 - 8.3 g/dL 04/28/2024 9:49 AM [facility] Albumin 4.2 3.4 - 5.0 g/dL 04/28/2024 9:49 AM [facility] Bilirubin Total 0.8 0.2 - 1.2 mg/dL 04/28/2024 9:49 AM [facility] Alkaline Phosphatase 120 40 - 150 U/L 04/28/2024 9:49 AM [facility] ALT 23 5 - 55 U/L 04/28/2024 9:49 AM [facility] AST 24 5 - 34 U/L 04/28/2024 9:49 AM [facility] Anion Gap 12 6 - 16 04/28/2024 9:49 AM [facility] BUN/Creatinine Ratio 13 7 - 23 04/28/2024 9:49 AM [facility] Osmolality Calculated 287 275 - 295 mOsm/kg 04/28/2024 9:49 AM [facility] Albumin/Globulin Ratio 1.3 1.1 - 2.3 04/28/2024 9:49 AM [facility] eGFR by CKD-EPI 74(L) >=90 mL/min/1.7 3 m2 04/28/2024 9:49 AM [facility] Blood BLOOD SPECIMEN / Unknown Lab Venipuncture / Unknown 04/28/2024 8:07 AM APPAREL PATTERNMAKER 04/28/2024 9:05 AM [facility] us Mohan Sanchez MD LAB - CHEMISTRY ORDERABLES Final Result [facility] [address] [place] [address], [facility] [phone] from Last 3 Months or Most Recently Relevant to Health Maintenance Insurance MEDICARE [facility] Advance Directives * Full Code (Latest Code Status on File) Date Activated Date Inactivated Comments 07/25/2023 3:29 PM 07/27/2023 1:43 PM Care Teams Air [employer] Pilot Relationship Specialty Start Date End Date London Tiwari DO [address] [place] [address] PCP - General Internal Medicine 12/13/23
[2025-02-13 11:07] LABS: Hemoglobin A1C 5.4 % (<5.7)
[2025-02-13 11:15] LABS: Free T4 Free Thyroxine 1.15 ng/dL (0.78-2.19)
[2025-02-13 11:20] LABS: Alanine Aminotransferase 25 U/L (6-35); Albumin Level 4.3 g/dL (3.5-5.1); Alkaline Phosphatase 115 U/L (38-126); Anion Gap 8 mmol/L (4-12); Aspartate Amino Transferase 28 U/L (14-36); Bilirubin,Total 0.9 mg/dL (0.2-1.3); Blood Urea Nitrogen 15 mg/dL (7-17); Calcium 9.3 mg/dL (8.4-10.2); Carbon Dioxide 23 mmol/L (22-30); Chloride 108 mmol/L (98-107); Cholesterol 221 mg/dL (0-200); Estimated Glomerular Filt Rate > 60; Glucose 99 mg/dL (65-110); HDL Direct 74 mg/dL; Potassium 4.4 mmol/L (3.4-5.0); Sodium 139 mmol/L (137-145); Total Protein 7.4 g/dL (6.3-8.2); Triglycerides 128 mg/dL (<150)
[2025-02-13 11:54] LABS: Thyroid Stimulating Hormone 4.970 uIU/mL (0.465-4.680)
== END 2025-02-13 10:21 | disposition home or self-care (01) ==
PROVIDERS: PCP Internal Medicine; Visit Provider Internal Medicine
DX: E78.00 Pure hypercholesterolemia, unspecified (principal); I10 Essential (primary) hypertension; R73.9 Hyperglycemia, unspecified; E55.9 Vitamin D deficiency, unspecified; E03.9 Hypothyroidism, unspecified; E78.5 Hyperlipidemia, unspecified
CPT/HCPCS: 36415; 80053; 80061; 82306; 83036; 84439; 84443